=== PATIENT | male | born 1990 | race African-American/Black ===

== ENCOUNTER 2019-04-16 18:53 | Emergency (ER) | payer OTHER, SELFPAY ==
[2019-04-16 19:00] VITALS: BP 172/80; PULSE 101; RESP 20; TEMP 38; O2SAT 100
--- NOTE | 2019-04-16 19:09 | ED.URI ---
HPI - URI/Sore Throat General Chief Complaint: Upper Respiratory Infection Stated Complaint: fever/sore throat/cough Source: patient Mode of arrival: ambulatory Limitations: no limitations History of Present Illness HPI Narrative: The patient- who is here with sick family members and nonsmoker/nondrinker- presents to 2d history of scantly productive cough and chills. No fever measured, wheeze earache. Symptoms mild, worse with sleeping/supine, better when upright; family members tested positive for flu B Related Data Home Medications Medication Instructions Recorded Confirmed lisinopril-hydrochlorothiazide 1 tablet PO DAILY 04/16/19 04/16/19 Allergies Allergy/AdvReac Type Severity Reaction Status Date / Time No Known Allergies Allergy Verified 04/16/19 19:03 Review of Systems Review of Systems: Narrative: General/Constitutional: No weight loss,POSS fever Eyes: N0: Redness,discharge Ears/Nose/Throat: No: Epistaxis,ear discharge Respiratory: Denies: Hemoptysis Gastrointestinal: No Vomiting, Bleeding-rectal Skin: No Lumps, eruption Neurologic: No Focal Weakness,Sz Hematologic: Denies: Petechiae/Purpura Psychiatric: No: Suicida ideationl All Other Systems: Reviewed and Negative PMFSH Social History Social History Gender identity (if verbalized by the patient): Male Comments At time of signature, agree with nursing past medical, surgical, social and family history. There is no relevant family history pertinent to the presenting complaint Exam Narrative: Exam Narrative: General Appearance: Well appearing, Well nourished EYE: PERRLA, Conjunctiva clear Ears: Auditory canal normal, TM normal Nose: Rhinorrhea, Mucousal erythema Mouth/Throat: MM moist, Uvula midline, Pharyngeal erythema Neck: Supple, No adenopathy Respiratory: No respiratory distress, Breath sounds equal, Clear to auscultation Cardiovascular: RRR, No JVD Musculoskeletal: Non tender, Normal strength Skin: Warm, Dry Neurological: A&O x3, CN II-XII intact Psychiatric: Normal mood, Normal affect Course Vital Signs Vital signs: Vital Signs Temperature 100.4 F H 04/16/19 19:00 Pulse Rate 101 H 04/16/19 19:00 Respiratory Rate 20 04/16/19 19:00 Blood Pressure 172/80 H 04/16/19 19:00 Pulse Oximetry 100 04/16/19 19:00 Temperature 100.4 F H 04/16/19 19:00 Pulse Rate 101 H 04/16/19 19:00 Respiratory Rate 20 04/16/19 19:00 Blood Pressure 172/80 H 04/16/19 19:00 Pulse Oximetry 100 04/16/19 19:00 MDM - URI/Sore Throat Lab Data Labs: Influenza A Screen Negative Reference Range: Negative Influenza B Screen Positive Reference Range: Negative Strep Screen Presumptive Negative *(Reference Range: Negative)* Discharge Plan Discharge Clinical Impression: Influenza B Patient Disposition: Home, Self-Care Condition: Stable Instructions: Influenza (ED) Prescriptions: New benzonatate [Tessalon Perles] 100 mg capsule 100 mg PO TID Qty: 20 RF: 1 codeine-guaifenesin 10-100 mg/5 mL liquid 7.5 ml PO Q6H PRN (Reason: cough) Qty: 118 RF: 0 oseltamivir [Tamiflu] 75 mg capsule 75 mg PO Q12H 5 Days Qty: 10 RF: 0 No Action lisinopril-hydrochlorothiazide 20-12.5 mg Tablet 1 tablet PO DAILY RF: 0 Interventions: Discharge Disposition Last Done: 04/16/19 19:18 Follow-up/Referrals: UNKNOWN,DOCTOR [Primary Care Provider] - Stand Alone Forms: Work/School Release IP Discharge Date/Time: 04/16/19 19:21
== END 2019-04-16 19:21 | disposition home or self-care (01) ==
PROVIDERS: Emergency Provider Emergency Medicine
DX: J10.1 Influenza due to other identified influenza virus with other respiratory manifestations (principal); I10 Essential (primary) hypertension
CPT/HCPCS: 87081; 87804; 87880; 99203; G0463

== ENCOUNTER 2020-10-24 10:49 | Emergency (ER) | payer OTHER, SELFPAY ==
[2020-10-24 10:59] VITALS: BP 147/86; PULSE 89; RESP 18; TEMP 36.4; O2SAT 99
--- NOTE | 2020-10-24 11:15 | ED.URI ---
HPI - URI/Sore Throat General Chief Complaint: Upper Respiratory Infection Stated Complaint: sinus infection Time Seen by Provider: 10/24/20 11:20 Source: patient and RN notes reviewed Mode of arrival: ambulatory Limitations: no limitations History of Present Illness HPI Narrative: 30-year-old male presents concern for 3 to 4-day history of nasal congestion, postnasal drainage, rhinorrhea, body aches, cough, occasional sore throat. Reports he has been vaccinated for Covid and tested negative Covid yesterday. He denies any known sick contacts, denies shortness of breath, loss of sense of taste or smell, ear pain. MD elicited complaint: nasal congestion Related Data Home Medications Medication Instructions Recorded Confirmed lisinopril-hydrochlorothiazide 1 tablet PO DAILY 04/16/19 04/16/19 Allergies Allergy/AdvReac Type Severity Reaction Status Date / Time No Known Allergies Allergy Verified 10/24/20 11:33 Review of Systems Review of Systems: CONSTITUTIONAL: Denies malaise, chills, sweats, or fever. EYES: Denies visual changes, redness, or discharge. ENT: Reports rhinorrhea, congestion, sore throat. Denies sinus pain, otalgia CARDIOVASCULAR: Denies chest pain, palpitations, or edema. RESPIRATORY: Reports cough. Denies dyspnea. GASTROINTESTINAL: Denies abdominal pain, nausea, vomiting, diarrhea SKIN: Denies rash or itching. MUSCULOSKELETAL: Reports myalgia. NEUROLOGIC: Denies headache. All systems reviewed & are unremarkable except as noted in HPI and below PMFSH Social History Social History Gender identity (if verbalized by the patient): Male Comments At time of signature, agree with nursing past medical, surgical, social and family history. There is no relevant family history pertinent to the presenting complaint Exam Narrative: GENERAL: Well-appearing, well-nourished, and in no acute distress. HEAD: Normocephalic EYES: PERRLA, conjunctivae clear ENT: Nares clear, turbinates erythematous, clear discharge. Mucous membranes moist. TM pearly dominguez with sharp light reflex bilaterally; no tragal tenderness. Oropharynx not erythematous without lesions. Tonsils not enlarged and without exudate, no drooling, no hoarseness, no trismus, uvula midline. NECK: Supple. No lymphadenopathy CHEST: Clear to auscultation, breath sounds equal. No wheezing, rhonchi, rales, or stridor. No respiratory distress, speaks in full sentences. HEART: Regular rate and rhythm. No murmur heard. SKIN: Warm, dry, no rash. NEURO: Alert and oriented x3. PSYCH: Normal mood and affect Course Course Emergency Course: Patient is aware of diagnosis, understands and agrees to treatment plan. Anticipatory guidance given. Patient agrees to follow-up as directed and is aware of reasons to seek care at the emergency department. Portions of this record may have been created with voice recognition software Vital Signs Vital signs: Vital Signs Temperature 97.6 F 10/24/20 10:59 Pulse Rate 89 10/24/20 10:59 Respiratory Rate 18 10/24/20 10:59 Blood Pressure 147/86 H 10/24/20 10:59 Pulse Oximetry 99 10/24/20 10:59 Temperature 97.6 F 10/24/20 10:59 Pulse Rate 89 10/24/20 10:59 Respiratory Rate 18 10/24/20 10:59 Blood Pressure 147/86 H 10/24/20 10:59 Pulse Oximetry 99 10/24/20 10:59 Reviewed. Pt has been instructed to follow up with his primary care provider within the next week regarding his elevated blood pressure today. MDM - URI/Sore Throat MDM Narrative Medical decision making narrative: Differential diagnosis considered: Benson virus, strep pharyngitis, allergic rhinitis, upper respiratory tract infection, sinusitis, rhinosinusitis, nasopharyngitis. viral pharyngitis, otitis media, otitis externa, pneumonia, bronchitis, viral cough syndrome, viral syndrome, and influenza. Exam findings show no acute concerns or changes; patient is non-toxic appearing and is in no distress. Patient is appropriate for outpatient jessica
== END 2020-10-24 11:48 | disposition home or self-care (01) ==
PROVIDERS: Emergency Provider Nurse Practitioner
DX: J06.9 Acute upper respiratory infection, unspecified (principal); I10 Essential (primary) hypertension
CPT/HCPCS: 99213; G0463

== ENCOUNTER 2023-01-05 19:31 | Emergency (ER) | payer OTHER, SELFPAY ==
--- NOTE | ~2023-01-05 | XR_ITS ---
EXAMINATION: XR chest 2V 01/05/2023 20:02 INDICATION: Chest pain PROCEDURE: 2 view chest COMPARISON: No prior studies for comparison. FINDINGS: The lungs are clear. The cardiomediastinal silhouette is within normal limits. There are no pleural effusions. There is no pneumothorax suspected. IMPRESSION: 1: NO ACUTE CARDIOPULMONARY DISEASE. Reviewed, dictated and finalized at location A.
--- NOTE | 2023-01-05 19:33 | ECG_ITS ---
Measurements Intervals [place] Rate: 91 P: 19 AR: 165 QRS: 38 QRSD: 96 T: 31 QT: 347 QTc: 427 Interpretive Statements SINUS RHYTHM NORMAL ECG NO PREVIOUS ECG AVAILABLE FOR COMPARISON Electronically Signed On 01-06-2023 7:48:57 CDT by Rick Zhao D.O.
[2023-01-05 19:46] VITALS: BP 156/92; PULSE 70; RESP 18; TEMP 36.9; O2SAT 98
[2023-01-05 20:00] LABS: Basophils Percent Auto 0.5 % (0.2-1.2); Eosinophils Absolute Auto 0.2 K/mm3 (0-0.3); Eosinophils Percent Auto 2.9 % (0-4.4); Hematocrit 46.8 % (42.0-52.0); Hemoglobin 15.5 g/dL (14.0-18.0); Immature Granulocyte Absolute 0.01 K/mm3 (0.00-0.031); Immature Granulocyte Percent A 0.2 % (0-0.5); Lymphocytes Absolute Auto 1.98 K/mm3 (0.9-3.2); Lymphocytes Percent Auto 30.1 % (18.3-44.2); Mean Corpuscular HGB Conc 33.1 g/dl (32-36); Mean Corpuscular Hemoglobin 29.3 pg (26-34); Mean Corpuscular Volume 88.5 fl (80-100); Mean Platelet Volume 9.3 fl (7.4-10.4); Monocytes Absolute Auto 0.7 K/mm3 (0.1-0.6); Monocytes Percent Auto 10.9 % (2.6-8.5); Neutrophils Absolute Auto 3.7 K/mm3 (1.3-6.7); Neutrophils Percent Auto 55.4 % (45.5-73.1); Platelet Count Result 281 k/mm3 (150-375); Red Blood Count 5.29 M/mm3 (4.6-6.20); Red Cell Distribution Width 11.7 % (11.5-14.5); White Blood Count 6.6 K/mm3 (4.5-10.0)
[2023-01-05 20:11] LABS: Alanine Aminotransferase 61 U/L (6-50); Albumin Level 4.9 g/dL (3.5-5.1); Alkaline Phosphatase 39 U/L (38-126); Anion Gap 9 mmol/L (8-16); Aspartate Amino Transferase 38 U/L (17-59); Bilirubin,Total 0.5 mg/dL (0.2-1.3); Blood Urea Nitrogen 16 mg/dL (9-20); Calcium 9.7 mg/dL (8.4-10.2); Carbon Dioxide 28 mmol/L (22-30); Chloride 102 mmol/L (98-107); Estimated CRCL calculation 124 ml/min; Estimated Glomerular Filt Rate > 60; Glucose 106 mg/dL (65-110); Lipase 193 U/L (23-300); Potassium 3.6 mmol/L (3.4-5.0); Prothrombin Time 13.1 Seconds (11.1-14.7); Sodium 139 mmol/L (137-145)
[2023-01-05 20:12] LABS: Partial Thromboplastin Time 27.2 SECONDS (22.3-36.8)
[2023-01-05 20:22] LABS: Troponin I < 0.012 ng/mL (0.000-0.034)
--- NOTE | 2023-01-05 21:29 | ED.CHESTPAIN ---
HPI - Chest Pain General Chief Complaint: Chest Pain Stated Complaint: chest pain since 1400 Time Seen by Provider: 01/05/23 21:26 History of Present Illness HPI narrative: Patient is a 32-year-old male who presents to the emergency department this afternoon complaining of chest pain. Patient states that the pain started at approximately 2 PM today and initially he rates the pain a 3 or a 4 out of 10 on the pain scale. Patient did take a full dose of oral chewable aspirin prior to arrival. Patient then states that when he got home and told his about the chest pain she wanted him to come to the emergency department for further evaluation. Patient states that at that time he did have some mild back pain, feeling as though the chest pain was radiating through his chest to his back. Patient states that since then the pain has improved and rates it at a 1 out of 10 on the pain scale. Patient admits to a history of high blood pressure, however, he states that his blood pressure has been controlled on his medications. He states that his does regularly check his blood pressure and today while he was at work they did notice that it was elevated which was unusual for him. Patient denies any shortness of breath, nausea, vomiting, abdominal pain, dysuria, hematuria, constipation, diarrhea, melena, hematochezia, fevers or chills. He also denies any headaches, dizziness, lightheadedness, blurry visions, dizziness, focal weakness, numbness and or tingling. There are no other modifying, alleviating, or precipitating factors at this time. Related Data Home Medications Medication Instructions Recorded Confirmed lisinopril 20 1 tablet PO DAILY 04/16/19 04/16/19 mg-hydrochlorothiazide 12.5 mg tablet Allergies Allergy/AdvReac Type Severity Reaction Status Date / Time No Known Allergies Allergy Verified 01/05/23 19:32 Review of Systems Review of Systems: All systems are reviewed and are negative unless stated otherwise in the HPI. [facility] Social History Social History Gender identity (if verbalized by the patient): Male Exam Narrative: General: Alert, awake, afebrile, in no acute distress. HEENT: PERRL, no rhinorrhea, no post nasal drip, oropharynx clear. Neck: Trachea midline, no JVD, no lymphadenopathy. Cardiovascular: Regular rate and rhythm, no murmurs, rubs or gallops, no peripheral edema, equal bilateral radial pulses. Respiratory: Clear to auscultation bilaterally, no tachypnea, no wheezing, no rhonchi, no rubs, no respiratory distress. Abdomen: Soft, nontender, nondistended, no rebound, no guarding, no peritoneal signs. Musculoskeletal: No joint swelling or deformity, normal muscle tone. Skin: No rashes or petechia, no signs of infection. Psychiatric: Alert and oriented, normal behavior and judgment for situation. Neurological: Alert and oriented to person, place, and time. Follows all commands. No focal deficits, speech is clear and fluent. 5 out of 5 motor strength in the bilateral upper and lower extremity, sensation intact in the bilateral upper and lower extremity, cranial nerves II through XII grossly intact. Gait intact and normal. Course Vital Signs Vital signs: Vital Signs Temperature 98.4 F 01/05/23 19:46 Pulse Rate 70 01/05/23 19:46 Respiratory Rate 18 01/05/23 19:46 Blood Pressure 156/92 H 01/05/23 19:46 Pulse Oximetry 98 01/05/23 19:46 Oxygen Delivery Room Air 01/05/23 19:46 Temperature 98.4 F 01/05/23 19:46 Pulse Rate 84 01/05/23 21:36 Respiratory Rate 18 01/05/23 19:46 Blood Pressure 151/83 H 01/05/23 21:36 Pulse Oximetry 97 01/05/23 21:49 Oxygen Delivery Room Air 01/05/23 21:49 MDM - Chest Pain MDM Narrative Medical decision making narrative: The patient was evaluated by myself in the emergency department. History is obtained from patient who is an independent historian and physical
[2023-01-05 21:36] VITALS: BP 151/83; PULSE 84; O2SAT 95
[2023-01-05 21:49] VITALS: O2SAT 97
== END 2023-01-05 22:05 | disposition home or self-care (01) ==
LOC: ANHED 22:05
PROVIDERS: Student in an Organized Health Care Education/Training Program; Emergency Provider Emergency Medicine
DX: R07.89 Other chest pain (principal)
CPT/HCPCS: 36415; 71046; 80053; 83690; 84484; 85025; 85610; 85730; 93005; 99284

== ENCOUNTER 2023-12-30 15:04 | Emergency (ER) | payer OTHER, SELFPAY ==
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
[2023-12-30 15:20] VITALS: BP 161/109; PULSE 70; RESP 17; TEMP 36.9; O2SAT 99
== END 2023-12-30 16:27 | disposition home or self-care (01) ==
PROVIDERS: Emergency Provider Physician Assistant
DX: S13.4XXA Sprain of ligaments of cervical spine, initial encounter (principal); V89.2XXA Person injured in unspecified motor-vehicle accident, traffic, initial encounter
CPT/HCPCS: 99283

== ENCOUNTER 2024-04-16 20:00 | Emergency (ER) | payer OTHER, SELFPAY ==
--- NOTE | ~2024-04-16 | US_ITS ---
EXAMINATION: US venous doppler LE RT DATE: 04/16/2024 20:56 INDICATION: Pain and swelling TECHNIQUE: Grayscale ultrasound images without and with compression and Doppler ultrasound images of the right lower extremity veins were obtained. COMPARISON: None. FINDINGS: The visualized portions of right common femoral vein, profunda (deep) femoral vein, femoral vein, pop liteal vein, peroneal veins, posterior tibial veins, and greater saphenous vein outflow are patent. IMPRESSION: 1. No deep venous thrombosis within the right lower extremity, as detailed above. Reviewed, dictated and finalized at location A. OR CLINICAL DATA ANALYST IMPRESSION: 1. No deep venous thrombosis within the right lower extremity, as detailed abo ve.
[2024-04-16 20:02] VITALS: BP 166/95; PULSE 83; RESP 15; TEMP 36.1; O2SAT 100
--- OUTSIDE RECORDS SUMMARY | 2024-04-16 20:02 | XMS_ITS | Clinical Summary ---
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 Gender Identity Not on file Sexual Orientation Not on file Plan of Treatment Health Maintenance Due Date Last Done Comments Hepatitis C Virus (HCV) Screening 1990 TdaP Immunization 1990 Hepatitis B Immunization (1 of 3 - 19+ 3-dose series) 02/14/2007 Influenza Immunization (#1) 2023 SARS-COV-2 Immunization ( season) 2023 12/30/2020, 06/09/2020, 05/18/2020 Respiratory Syncytial Virus (RSV) Immunization (Adult) (1 - 1-dose 75+ series) 02/14/2063 Meningococcal Immunization (ACWY) Aged Out No longer eligible b ased on patient's age to complete this topic Pneumococcal Immunization Combined Aged Out No longer eligible b ased on patient's age to complete this topic Rotavirus Immunization Aged Out No lo nger eligible based on patient's age to complete this topic
--- OUTSIDE RECORDS SUMMARY | 2024-04-16 20:03 | XMS_ITS | Clinical Summary ---
Author Organization [facility] Address [address] [place] [address] Care Team Providers Care Chemist Instrumentation Name Role Phone Unavailable Primary Care Provider Unavailabl e Source Comments [facility],non-owned Affiliates and Associated Physician Practices is amultiple site organization consisting of ambulatory clinics and hospital sitesin [place], [place], [place] and [place]. This disclosure is being madepursuant to the Care Everywhere program and may not contain all information available regarding this patient. Last updated 17.[facility] Health Encounters Date Type Department Care Team Description 03/13/2024 8:40 AM SWITCH INSPECTOR - 03/13/2024 11:59 PM SWITCH INSPECTOR Hospital Encounter [facility] [address] [place] [address] Channing Chiu, Discharge Disposition: Home or Self Care from Last 3 Months Social History Tobacco Use Types Packs/Day Years Used Date Smoking Tobacco: Never Assessed Sex and Gender Information Value Date Recorded Sex Assigned at Not on file Gender Identity Not on file Sexual Orientation Not on file Plan of Treatment Health Maintenance Due Date Last Done Comments PAP SMEAR 1990 HIV SCREENING 02/14/2003 HEPATITIS C SCREENING 02/10/2006 DTAP/TDAP/TD VACCINES (1 - Tdap) 02/14/2007 HEPATITIS B VACCINE (1 of 3 - 19+ 3-dose series) 02/14/2007 COVID-19 VACCINE (4 - season) 2023 12/30/2020, 06/09/2020, 05/18/2020 DEPRESSION SCREENING 03/06/2024 ZOSTER VACCINE (1 of 2) 02/14/2038 INFLUENZA VACCINE Completed 01/24/2024, , 01/13/2021, Additional history exists HIB VACCINE Aged Out No longer eligi ble based on patient's age to complete this topic HPV VACCINE Aged Out No longer eligi ble based on patient's age to complete this topic MENINGOCOCCAL (Group B) VACCINE Aged Out No longer eligible based on patient's age to complete this topic MENINGOCOCCAL VACCINE Aged Out No nicole hien eligible based on patient's age to complete this topic PNEUMOCOCCAL VACCINE Aged Out No long er eligible based on patient's age to complete this topic Procedures Procedure Name Priority Date/Time Associated Diagnosis Comments XR SHOULDER LEFT 2VW OR MORE Routine 03/13/2024 8:52 AM SWITCH INSPECTOR Arthritis, allergic from Last 3 Months Results * XR Shoulder Left 2Vw or More (03/13/2024 8:52 AM SWITCH INSPECTOR) Anatomical Region Laterality Modality Upper Extremity Digital Radiogra phy 03/13/2024 9:10 AM SWITCH INSPECTOR Impressions 03/13/2024 9:32 AM SWITCH INSPECTOR IMPRESSION: No arthritis. Report dictated by Jeri Healy MD (vice president of communications). I, Josh Díaz MD have personally reviewed and interpreted this examination/study. > Interpreting Provider: Josh Díaz MD on 03/13/2024 9:32 AM Narrative 03/13/2024 9:32 AM SWITCH INSPECTOR PROCEDURE: XR SHOULDER LEFT 2VW OR MORE DATE/TIME OF EXAM: 03/13/2024 8:52 AM CLINICAL INFORMATION: None relevant/not provided if blank. Indication: M13.80: Arthritis, allergic Additional History: COMPARISON: None. FINDINGS: There is no acute fracture or dislocation. There is no acromioclavicular or glenohumeral arthritis. Humeral shaft plate and screws, partly imaged. Procedure Note Josh Díaz MD - 03/13/2024 PROCEDURE: XR SHOULDER LEFT 2VW OR MORE DATE/TIME OF EXAM: 03/13/2024 8:52 AM CLINICAL INFORMATION: None relevant/not provided if blank. Indication: M13.80: Arthritis, allergic Additional History: COMPARISON: None. FINDINGS: There is no acute fracture or dislocation. There is no acromioclavicularor glenohumeral arthritis. Humeral shaft plate and screws, partly imaged. IMPRESSION: No arthritis. Report dictated by Jeri Healy MD (vice president of communications). I, Josh Díaz MD have personally reviewed and interpreted this examination/study. > Interpreting Provider: Josh Díaz MD on 03/13/2024 9:32 AM Channing Chiu DO DIAGNOSTIC I MAGING ORDERABLES from Last 3 Months Narciso Al Personal/Family Self 1990
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
--- OUTSIDE RECORDS SUMMARY | 2024-04-16 20:03 | XMS_ITS | Referral Summary ---
Author Organization [facility] Address [address] [place] [address] Care Team Providers Care Wig Stylist Name Role Phone Unavailable Primary Care Provider Unavailabl e Source Comments [facility],non-owned Affiliates and Associated Physician Practices is amultiple site organization consisting of ambulatory clinics and hospital sitesin [place], [place], [place] and [place]. This disclosure is being madepursuant to the Care Everywhere program and may not contain all information available regarding this patient. Last updated 17.[facility] Encounters Date Type Department Care Team Description 03/13/2024 8:40 AM VISUAL EFFECTS EDITOR - 03/13/2024 11:59 PM VISUAL EFFECTS EDITOR Hospital Encounter [facility] [address] [place] [address] Channing Chiu, Discharge Disposition: Home or Self Care from Last 3 Months Social History Tobacco Use Types Packs/Day Years Used Date Smoking Tobacco: Never Assessed Sex and Gender Information Value Date Recorded Sex Assigned at Not on file Gender Identity Not on file Sexual Orientation Not on file Plan of Treatment Not on file Procedures Procedure Name Priority Date/Time Associated Diagnosis Comments XR SHOULDER LEFT 2VW OR MORE Routine 03/13/2024 8:52 AM VISUAL EFFECTS EDITOR Arthritis, allergic from Last 3 Months Results * XR Shoulder Left 2Vw or More (03/13/2024 8:52 AM VISUAL EFFECTS EDITOR) Anatomical Region Laterality Modality Upper Extremity Digital Radiogra phy 03/13/2024 9:10 AM VISUAL EFFECTS EDITOR Impressions 03/13/2024 9:32 AM VISUAL EFFECTS EDITOR IMPRESSION: No arthritis. Report dictated by Jeri Healy MD (vice president of finance). Josh White MD have personally reviewed and interpreted this examination/study. > Interpreting Provider: Josh Díaz MD on 03/13/2024 9:32 AM Narrative 03/13/2024 9:32 AM VISUAL EFFECTS EDITOR PROCEDURE: XR SHOULDER LEFT 2VW OR MORE [...] by Jeri Healy MD (vice president of finance). Josh White MD have personally reviewed and interpreted this examination/study. > Interpreting Provider: Josh Díaz MD on 03/13/2024 9:32 AM Channing Chiu DO DIAGNOSTIC I MAGING ORDERABLES from Last 3 Months Narciso Al Personal/Family Self 1990
--- OUTSIDE RECORDS SUMMARY | 2024-04-16 20:03 | XMS_ITS | Patient Health Summary ---
Author Organization [email or web address] Address [address] [place] [address] Care Team Providers Care Printer Operator Name Role Phone Unavailable Primary Care Provider Unavailabl e Note from [email or web address],non-owned Affiliates and Associated Physician Practices is amultiple site organization consisting of ambulatory clinics and hospital sitesin [place], [place], [place] and [place]. This disclosure is being madepursuant to the Care Everywhere program and may not contain all information available regarding this patient. Last updated 17.[email or web address] Social History Tobacco Use Types Packs/Day Years Used Date Smoking Tobacco: Never Assessed Sex and Gender Information Value Date Recorded Sex Assigned at Not on file Gender Identity Not on file Sexual Orientation Not on file Procedures * XR SHOULDER LEFT 2VW OR MORE(Performed 03/13/2024) Performed for Arthritis, allergic Results * XR Shoulder Left 2Vw or More (03/13/2024 8:52 AM ROD MILL TENDER) Anatomical Region Laterality Modality Upper Extremity Digital Radiogra phy 03/13/2024 9:10 AM ROD MILL TENDER Impressions 03/13/2024 9:32 AM ROD MILL TENDER IMPRESSION: No arthritis. Report dictated by Jeri Healy MD (psychiatry resident). I, Josh Díaz MD have personally reviewed and interpreted this examination/study. > Interpreting Provider: Josh Díaz MD on 03/13/2024 9:32 AM Narrative 03/13/2024 9:32 AM ROD MILL TENDER PROCEDURE: XR SHOULDER LEFT 2VW OR MORE [...] arthritis. Report dictated by Jeri Healy MD (psychiatry resident). I, Josh Díaz MD have personally reviewed and interpreted this examination/study. > Interpreting Provider: Josh Díaz MD on 03/13/2024 9:32 AM Channing Chiu DO DIAGNOSTIC I MAGING ORDERABLES
--- OUTSIDE RECORDS SUMMARY | 2024-04-16 20:04 | XMS_ITS | Continuity of Care Document ---
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 Work/Duty Lim[place] [id number] proc MIKEY RICE 08/12 Released with Work/Duty Lim[place] [facility] OUT[place] [id number] polytra rickie ANASTACIA PARHAM 08/13 Released with Work/Duty Limitations [place] [place] [id number] proc MAYRA PHELAN 08/14 Released with Work/Duty Lim[place] [facility] [id number] polytra [facility] ARLENE WHIPPLE 08/15 Released w/o Limitations [place] [place] [id number] proc MIKEY RICE 08/16 Released with Work/Duty Lim[place] [facility] [id number] polytra rickie HERMINIO BONILLA 09/02 Released w/o Limitations [place] [place] [facility] [id number] poly trauma DANIELLE, TATY R 09/10 Released w/o Limitations [place] [facility] [place] [id number] proc MALATHI CARNEY 09/11 Released with Work/Duty Lim[place] [facility] [id number] poly trauma PARHAMWARNERG D 09/13 Released with Work/Duty Lim[place] [place] [id number] proc HEAD, LIU 09/18 Released w/o Lim[place] [id number] consult ///[phone] 4/lm SHIRLEY REYNOSO 09/20 [place]ased w[place]o Limitations [place] [facility] [id number] poly trauma DANIELLE, TATY R 09/20 Released w/o Limitations [place] [facility] [place] [id number] proc MIKEY RICE 09/23 Released with Work/Duty Lim[place] [facility] OUTPAT[place] [id number] poly trauma DANIELLE, TATY R 09/24 Released w/o Limitations [place] [facility] [place] [facility] OUTPAT[place] [id number] poly trauma PARHAM, ANASTACIA D 09/26 Released with Work/Duty Lim[place] [facility] [place] [facility] OUTPAT[place] [id number] poly trauma PARHAM, ANASTACIA D 10/01 Released with Work/Duty Lim[place] [facility] [place] [id number] F/U SHIRLEY REYNOSO 10/02 Released w/o Limitations [place] [facility] [id number] PT Re-Eval uation HERMINIO BONILLA 10/04 Released w/o Limitations [place] [facility] [place] [id number] F/U SHIRLEY REYNOSO 10/10 [place]ased w/o Limitations [place] [id number] surg 15aug TONIA ISIDRO 10/14 [place]ased w/o Lim[place] [id number] pre-op/ surg 20 oct/r knee/ch JERRI Jung 10/15 Released with Work/Duty [place] [id number] post op TONIA ISIDRO 10/25 Released with Work/Duty Lim[place] [id number] f/u SHIRLEY REYNOSO 10/28 Released w/o Limitations [place] [facility] OUTPAT[place] [id number] HERMINIO BONILLA 10/28 Released w/o Limitations [place] [facility] [place] TELE CONSULT [id number] CON LEAVE/C ALL@ [phone] TONIA ISIDRO 10/29 [place] [id number] new profile and bp concern s ZACHARY ROCHA 10/30 [place]ased w/o Limitations [place] [id number] f/u SHIRLEY REYNOSO 11/11 Released w/o Limitations [place] [facility] [id number] poly trauma HERMINIO BONILLA 11/12 Released w/o Limitations [place] [facility] [place] [facility] OUTPATIENT [id number] poly trauma DANIELLE, TATY Jimenez 11/14 Released w/o Limitations [place] [facility] [place] [facility] OUTPATIENT [id number] poly trauma DANIELLE, TATY R 11/19 Released w/o Limitations [place] [place] [id number] NEW PATIENT ARASH ROBERTS 11/21 [place]ased w/o Limitations [place] [place] [facility] [id number] f/u SHIRLEY REYNOSO 11/21 [place]ased [place]/o Lim[place] [facility] [id number] poly trauma TATY SANTOS R 11/22 Released w/o Limitations [place] [facility] [place] [facility]PAT[place] [id number] poly trauma DANIELLETATY RAINEY R 11/25 Released w/o Limitations [place] [place] Case Managemen t) OUTPATIENT [id number] weekly visit for ITA PARSONS 12/04 Released with Work/Duty Lim[place] [place] [facility] [id number] poly trauma WINKLER JERRI Lopez 12/04 Released with Work/Duty Lim[place] [facility] [place] [id number] f/u SHIRLEY REYNOSO 12/05 [place]ased w/o [place] [facility] [place] [facility] OUTPATIENT [id number] MEB Phase 2 / DELBERT JASON 12/10 Released with Work/Duty Lim[place] [place] [facility] [place] [facility] [place] [place] [id number] Weekly Encount QUINCY Aragon 12/10 Released with Work/Duty Lim[place] [place] [facility] [id number] poly trauma JERRI WINKLER 12/10 Released w/o Lim[place] [facility] [place] [id number] FLUMIST /AD/[facility] [employer] MOLLY DHAVAL K 12/11 Released w[place]o Lim[place] [id number] TBI EVALUAT ION REF: [facility] AND [facility] JOHNNY AZUL 12/11 [place]ased w/o Limitations [place] [place] [place] [facility] [facility] [id number] poly trauma WINKLERJERRI 12/12 Released w/o Limitations [place] [facility] [place]) [place] [id number] shen s left arm and hand STEPHEN BRYANT 12/13 Released w/o Limitations [place] [id number] CM follow up r/t mTBI appt 8 Oct 08 KATELIN SEPULVEDA 12/18 Released w/o Limitations [place] [place] [place] [facility] [place] [id number] weekly encount QUINCY Aragon 12/18 Released with Work/Duty Limitations [place] [place] [facility] [id number] poly trauma WINKLERJERRI A 12/18 Released w/o Limitations [place] [facility] [place] [place] [id number] f/u SHIRLEY REYNOSO 12/19 Released w/o Limitations [place] [facility] [id number] poly trauma WINKLERJERRI A 12/20 Released with Work/Duty Limitations [place] [place] [facility] OUTPAT[place] [id number] poly trauma WINKLERJERRI A 12/23 Released with Work/Duty Limitations [place] [facility] [place] [id number] F/U APPT JOHNNY AZUL 12/24 Released w/o Limitations [place] [place] [facility] [id number] poly trauma WINKLERJERRI A 12/25 Released with Work/Duty Limitations [place] [place]) [place] [id number] back class FLOYDENMANUEL Neil 12/26 Released w[place]o Limitations [place] [id number] difficu lties in speech RYNE MACHUCA 12/27 Released w/o Limitations [place] [place] TELE CONSULT [id number] CM f/u QUINCY BRODY 12/27 [place] [place] [id number] f/u SHIRLEY REYNOSO 12/30 Released w/o Limitations [place] [facility]PAT[place] [id number] poly trauma JERRI WINKLER 12/30 Released with Work/Duty Limitations [place] [facility] [place] [facility] OUTPATIENT [id number] poly trauma JERRI WINKLER 01/01 Released with Work/Duty Limitations [place] [place] [id number] weekly encount er CASSANDRA MICHELE 01/03 Released with Work/Duty Limitations [place] [place] [place] TELE CONSULT [id number] Weekly encount er CASSANDRA MICHELE 01/10 [place] [place] [facility] [id number] poly trauma HERMINIO BONILLA 01/17 Released w/o Limitations [place] [place] [place]IENT [id number] weekly encount er CASSANDRA MICHELE 01/17 Released w/o Limitations [place] [place] [id number] F/U APPT JOHNNY AZUL 01/23 Released w/o Limitations [place] [place] [place] TELE CONSULT [id number] weekly encount er CASSANDRA MICHELE 01/24 [place] [place] [id number] PROFILE UPDATE- CM ROSA M KIRAN 01/29 Released w/o Limitations [place] [place] [id number] weekly encount er CASSANDRA MICHELE 01/29 Released with Work/Duty Limitations [place] [place] [id number] f/u SHIRLEY REYNOSO 02/03 Released w/o Limitations [place] [place] [place] [id number] Weekly encount er CASSANDRA MICHELE 02/04 Released w/o Limitations [place] [place] OUTPATIENT [id number] f/u for hand ROSA M PATEL 02/04 Released w/o Limitations [place] [facility] [id number] POLY TRAUMA HERMINIO BONILLA 02/04 Released w/o Limitations [place] [facility] [place] [id number] weekly encoute r WILIAM MICHELENEJuni Desouza 02/14 Released with Work/Duty Limitations [place] [place] [id number] F/U SHIRLEY REYNOSO 02/17 Released w/o Limitations [place] [place] [place] [place] TELE CONSULT [id number] Weekly encount er WILIAM MICHELENEN L 02/21 [place] [place] [facility] TELE CONSULT [id number] PT NO SHOW HERMINIO BONILLA 03/05 [place] [facility] [place] [place] [id number] Weekly encount er LENY, CASSANDRA L 03/10 Released with Work/Duty Limitations [place] [place] [facility] [id number] poly trauma. cpt swaffor d's previou s pnt. GREGORIO ELIZALDE 03/12 Released with Work/Duty Limitations [place] [place] [id number] f/u SHIRLEY REYNOSO 03/13 Released w/o Limitations [place] [id number] L LEG TONIA ISIDRO 03/13 Released w/o Limitations [place] [place] [id number] weekly encount er CASSANDRA MICHELE 03/17 Released with Work/Duty Limitations [place] [place] [facility]) [place] [id number] 009/PRE -OP/KDS GASTON VELASCO 03/18 Released with Work/D[place]) [place] [id number] post op left knee surg mar 14 ENMANUEL BARRIENTOS 03/26 Released w/[place]itations [place]) [place] [id number] pop surgery on TONIA ISIDRO 03/28 Released with Work/Duty Limitations [place] TELE CONSULT [id number] weekly encount er CASSANDRA MICHELE 03/28 [place] TELE CONSULT [id number] NO SHOW [id number] HIGH/LO SHIRLEY GILMORE 03/31 [place] TELE CONSULT [id number] Late-en try weekly encount er. CASSANDRA MICHELE 03/31 [place] TELE CONSULT [id number] Weekly encount er CASSANDRA MICHELE 03/31 [place] [id number] Medicat ion Review/ Weekly Encount er CASSANDRA MICHELE 04/04 Released with Work/D[place] [facility] TELE CONSULT [id number] [facility]\J 1st eval report from a special ist has been scanned into ADIN Bain 04/07 [place] Case Managemen t) OUTPATIENT [id number] Weekly encount er CASSANDRA MICHELE 04/10 [place]itations [place]PAT[place] [id number] NARSUM/ as per Ms.Brad chauhan/JHON Hendrix 04/11 [place] [id number] F/U [phone] KETAN REYNOSOWIN 04/14 [place] TELE CONSULT [id number] Weekly encount er LENY, CASSANDRA L 04/18 [place]) [place] [id number] RACHEL BARRIENTOS ENMANUEL D 04/25 [place] TELE CONSULT [id number] Weekly encount er LENY, CASSANDRA L 04/26 [place]) [place] [id number] f/u [phone] SHIRLEY REYNOSO 04/28 [place] [place] [id number] Weekly encount er LENY, CASSANDRA L 04/29 [place]ased [place] Work/D[place] TELE CONSULT [id number] Weekly encount er LENY, CASSANDRA L 05/07 [place] [facility]PATIENT [id number] MEASLES ISSUES PER CM TEE CABRERA 05/08 [place] Limitations [place] [place]IENT [id number] INITIAL VISIT PER CM LENY SINGHVANESA MAST Robert 05/09 [place]itations [place] [id number] F/U [phone] SHIRLEY REYNOSO 05/12 [place] [id number] [facility]/LAT E EFFECTS OF INJURIE S FRACTUR E UPPER EXTREMI TIES/CM LENY NOTIF 05/09 MIGUEL GRAYSON 05/13 [place]IENT [id number] Weekly encount er CASSANDRA MICHELE 05/15 Released [place] Work/Duty [place] TELE CONSULT [id number] Weekly encoutn er CASSANDRA MICHELE 05/20 [place] [id number] f/u SHIRLEY REYNOSO 05/29 [place] [id number] Weekly encount er CASSANDRA MICHELE 05/29 [place]ased [place] Work/D[place] [facility] [place] [facility] [place] TELE CONSULT [id number] MEDICAT ION REQUEST CASSANDRA MICHELE 05/31 [place] [place] [facility] [place] [id number] Weekly encount er- T-CON CASSANDRA MICHELE L 06/04 [place]ased [place] Work/D[place] [id number] Weekly encount er CASSANDRA MICHELE L 06/17 [place]ased [place] Work/D[place] [facility] [place] [facility] [id number] WT[facility]/CM LENY/ TEE BARRERA 06/19 [place] Limitations [place] [id number] f/u SHIRLEY REYNOSO 06/23 [place] [facility] [facility] [place] [id number] REYNA FISCHER 06/24 [place]/o [place]itations [place] [facility] [place] [id number] Weekly encount er CASSANDRA MICHELE L 06/25 [place]ased [place]/D[place] [id number] Weekly encount er CASSANDRA MICHELE L 07/02 [place]ased [place] Work/D[place] TELE CONSULT [id number] Weekly Encount er-Appt Need CASSANDRA MICHELE 07/08 [place] [place]ag[facility]) OUTPATIENT [id number] Weekly encount er CASSANDRA MICHELE L 07/11 [place]ased [place] Work/Duty [place] [place] Case Managemen [facility]) OUTPATIENT [id number] Weekly encount er CASSANDRA MICHELE 07/14 [place]ased [place] Work/Duty [place] [place] [id number] f/u [phone] SHIRLEY REYNOSO 07/14 [place]ag[facility] OUTPATIENT [id number] WEEKLY ENCOUNT ER CASSANDRA MICHELE 07/21 [place]ased [place] Work/Duty [place] [place] [facility] [facility] [facility] [place]IENT [id number] medicat ion needs/c smngr TEE Hood 07/31 [place]/o Limitations [place] Case [facility]ag[facility]) OUTPATIENT [id number] Weekly Encount er CASSANDRA MICHELE 08/04 Released with Work/Duty Lim[place] [place] Case Managemen [facility]) TELE CONSULT [id number] WEEKLY ENCOUNT ER T-CON CASSANDRA MICHELE 08/21 [place] TELE CONSULT [id number] Weekly Encount er CASSANDRA MICHELE 08/28 [place]LE CONS[place] [id number] Weekly Encount er CHELLE WASHINGTON 09/08 [place] TELE CONS[place] [id number] NCM Weekly Encount er CHELLE WASHINGTON 09/12 [place] TELE CONSULT [id number] Weekly Encount er HCELLE WASHINGTON 09/17 [place] TELE CONSULT [id number] Weekly Encount er CHELLE WASHINGTON 09/26 [place] TELE CONSULT [id number] Final NCM Weekly Encount er CHELLE WASHINGTON 09/30 [place] [facility]) OUTPATIENT [id number] BP CHECK DAY #1 PER COL JUAN JOSÉ KAUFMAN W/LUIS CARLOS RDZ 03/03 Released w/o Limitations [facility] [place] [facility] OUTPATIENT [id number] CONTRAC MANDEEP GONZALEZ NE DAY #2 BP CK PER COL LUIS CARLOS EUCEDA 03/04 Released w/o Limitations [facility]( [facility] [place] [facility]) [facility] [place] OUTPATIENT [id number] CONTRAC TOR LISA NE FLIGHT KERRIE PHAM 03/05 Released w/o Limitations [facility]( [facility] [place] [facility]) [facility](He aring Cons [facility]) OUTPATIENT [id number] Civ audio LEYDA DORA 03/05 Released w/o Limitations [facility]( Hearing [facility]) [facility] [place] TELE CONSULT [id number] Notes Entered by: KERRIE PTAIÑO 17 Apr 2014 0502 ------- ------- ------- ------- -- Flight Barbara desouza follow- up KERRIE PATIÑO 04/17 [facility]( [facility] [place] [facility]) [facility] [place] TELE CONSULT [id number] Notes Entered by: KERRIE PTAIÑO 29 Apr 2014 0649 ------- ------- ------- ------- -- Change in [place] KERRIE PATIÑO 04/29 [facility]( [facility] [place] [facility]) [facility](TB I Cl [facility]) OUTPATIENT [id number] neuro exam for aeromed ical OMID Xiao 05/19 Released w/o Limitations [facility]( TBI Cl [facility]) [facility]) OUTPATIENT [id number] [facility] 05/19 Released w/o Limitations [facility]( TBI Cl [facility]) [facility]) OUTPATIENT [id number] [facility] [place] 05/19 Released w/o Limitations [facility]( TBI Cl [facility]) [facility](TB I Cl [facility]) OUTPATIENT [id number] [facility] 05/20 Released w/o Limitations [facility]( TBI Cl [facility]) [facility](TB I Cl [facility]) TELE CONSULT [id number] Notes Entered by: NU SEWELL 01 Jul 2014 1723 ------- ------- ------- ------- -- Phone call for neurops ycholog ical testing [facility] NU [facility] 07/01 [facility]( TBI Cl NICo[facility] BE) [facility](Op tometry Cl FB) OUTPATIENT [id number] FLIGHT OVI GOLDSMITH BUFFYRA Conklin 01/23 Released w/o Limitations [facility]( Optomet ry Cl [facility]) [facility](He ar Conserv FB) OUTPATIENT [id number] TRISHA SERNA 01/23 Released w/o Limitations [facility]( Hear Conserv [facility]) [facility](Fl ight Med FB) OUTPATIENT [id number] 1 CLASS IV LONG ATC CIV ALEX RAMOS 01/23 Released w/o Limitations [facility]( Flight Med FB) [facility](Fl ight Med [facility]) OUTPATIENT [id number] part 2 Flight ALEX RAMOS 01/27 Released w/o Limitations [facility]( Flight Med [facility]) [facility](Ph ys Med & Rehab Cl [facility]) TELE CONSULT [id number] Notes Entered by: JAYCOB ROY 18 Feb 2015 1337 ------- ------- ------- ------- -- PT would like to speak to provide r about flight ELVIS Zapata 02/18 [facility]( Phys Med & Rehab Cl [facility]) [facility] [place]) OUTPATIENT [id number] Flight BONG Ryan 02/10 Released w/o Limitations [facility]( [facility] [place] [facility]) [facility] [place] OUTPATIENT [id number] ATC FLIGHT KERRIE PHAM 02/21 Released w/o Limitations [facility]( [facility] [place] [facility]) [facility](He aring Cons AB) OUTPATIENT [id number] [facility] Er audio DORA CRABTREE 02/21 Released w/o Limitations [facility]( Hearing Cons AB) [facility] [place] TELE CONSULT [id number] Notes Entered by: KERRIE PATIÑO 23 Feb 2016 0908 ------- ------- ------- ------- -- Report labs KERRIE PATIÑO 02/22 [facility]( [facility] [place] [facility]) [facility] [place] OUTPATIENT [id number] Notes Entered by: KERRIE PATIÑO 27 Apr 2016 1442 ------- ------- ------- ------- -- New [place] KERRIE PATIÑO 04/27 Released w/o Limitations [facility]( [facility] [place] [facility]) [facility] [place] OUTPATIENT [id number] RTW CLEARAN KERRIE CHENEY 08/15 Released w/o Limitations [facility]( [facility] [place] [facility]) [facility] [place] OUTPATIENT [id number] FLIGHT KERRIE PHAM 02/21 Released w/o Limitations [facility]( [facility] [place] [facility]) [facility](He aring Cons [facility]) OUTPATIENT [id number] [facility] AUDIO SCOUT MARINELLI 02/21 Released w/o Limitations [facility]( Hearing Cons AB) [facility] [place] OUTPATIENT [id number] ECG re-do KERRIE PATIÑO 03/07 Released w/o Limitations [facility]( [facility] [place] [facility]) [facility] Outpatient Encounter [id number] 03/10 [facility] Outpatient Encounter [id number] JOE MCQUEEN 03/10 [facility] Outpatient Encounter [id number] 05/10 [facility] FEE [id number] Diagnos is: ICD-10- CM I10 Essenti al (primar y) hyperte nsaylin JODI LOCK IS J 05/14 [facility] OFFICE O/P EST LOW 20 MIN [id number] Diagnos is: ICD-10- CM Z00.01 Encount er for general adult medical exam w abnorma l finding s JODI LOCK IS J 05/14 [facility] Outpatient Encounter [id number] 06/20 [facility] Outpatient Encounter [id number] 07/04 [facility] Outpatient Encounter [id number] 02/03 [facility] Outpatient Encounter [id number] SHABNAM CHRISTENSEN 03/18 [facility] SYNCH AUDIO-VIDE O EST MOD 30 [id number] Diagnos is: ICD-10- CM I10 Essenti al (primar y) hyperte nsion DICK,GWEN OD K 03/20 [facility] SYNCH AUDIO-VIDE O EST MOD 30 [id number] Diagnos is: ICD-10- CM I10 Essenti al (primar y) hyperte nsion DICK,GWEN OD K 03/20 [facility] Outpatient Encounter [id number] 03/21 [facility] Outpatient Encounter [id number] 04/15 [facility] Procedures Combined list of: 1) Procedures from Department of [facility] facilities going back up to thelast 18 months, not all [place] non-surgical procedures are included; 2) All procedures from the Department of Defense facilities. Procedure Procedure Type Code Date Perfomer Comments [facility] e OPEN REDUCTION OF FRACTURE OF HUMERUS WITH INTERNAL FIXATION 2006 [facility] OPEN REDUCTION OF FRACTURE OF RADIUS AND ULNA WITH INTERNAL FIXATION 2006 [facility] OCCUPATIONAL THERAPY 2006 [facility] OPEN REDUCTION OF FRACTURE OF TIBIA AND FIBULA WITH INTERNAL FIXATION 2006 [facility] COMBINED PHYSICAL THERAPY WITHOUT MENTION OF THE COMPONENTS 2006 [facility] OPEN REDUCTION OF FRACTURE OF FEMUR WITH INTERNAL FIXATION 2006 [facility] HEPATITIS A VACCINE (HEPA), ADULT DOSAGE, FOR INTRAMUSCULAR USE 2005 [facility] CASE MANAGEMENT, EACH 15 MINUTES 2008 [facility] CASE MANAGEMENT, EACH 15 MINUTES 2008 [facility] INDIVIDUAL PSYCHOTHERAPY, INSIGHT ORIENTED, BEHAVIOR MODIFYING AND/OR SUPPORTIVE, IN AN OFFICE OR OUTPATIENT FACILITY, APPROXIMATELY 20 TO 30 MINUTES [id number] WITH THE PATIENT 2008 [facility] CHIROPRACTIC MANIPULATIVE TREATMENT (CMT); SPINAL, 1-2 REGIONS 2008 [facility] SCREENING TEST OF VISUAL ACUITY, QUANTITATIVE, BILATERAL 2008 [facility] CHIROPRACTIC MANIPULATIVE TREATMENT (CMT); SPINAL, 3-4 REGIONS 2008 [facility] CHIROPRACTIC MANIPULATIVE TREATMENT (CMT); SPINAL, 1-2 REGIONS 2008 [facility] CHIROPRACTIC MANIPULATIVE TREATMENT (CMT); SPINAL, 3-4 REGIONS 2008 [facility] EDUCATION &TRAINING, PATIENT SELF-MGT QUALIFIED, NONPHYSICIAN HEALTH RESEARCH ASSISTANT USING STDIZED CURRICULUM, [id number] W THE PATIENT (COULD INCL CAREGIVER/FAMILY) EA 30 MIN; INDIVIDUAL PATIENT 2008 [facility] CHIROPRACTIC MANIPULATIVE TREATMENT (CMT); SPINAL, 3-4 REGIONS 2008 [facility]D SUPP &MATERIAL (EXCEPT SPECTACLE),PROVID,THE PHYS/OTH QUALIFIED HEALTH RESEARCH ASSISTANT OVER &ABOVE THOSE USUALLY INCLD W THE OFFICE VISIT/OTH SER RENDERED (LIST DRUG,TRAYS,SUPP,OR MATERIAL PROVID) 2008 [facility] CHIROPRACTIC MANIPULATIVE TREATMENT (CMT); SPINAL, 3-4 REGIONS 2008 [facility] POSTOPERATIVE FOLLOW-UP VISIT, NORMALLY INCLUDED IN THE SURGICAL PACKAGE, INDICATE THAT EVALUATION & MANAGEMENT SERVICE WAS PERFORMED DURING A POSTOPERATIVE PERIOD REASON RELATED ORIGINAL PROCEDURE 2008 [facility] SUPP &MATERIAL (EXCEPT SPECTACLE),PROVID,THE PHYS/OTH QUALIFIED HEALTH RESEARCH ASSISTANT OVER &ABOVE THOSE USUALLY INCLD W THE OFFICE VISIT/OTH SER RENDERED (LIST DRUG,TRAYS,SUPP,OR MATERIAL PROVID) 2008 [facility] UNLISTED SPECIAL SERVICE, PROCEDURE OR REPORT 2008 [facility] EDUCATIONAL SUPPLIES, SUCH BOOKS, TAPES, AND PAMPHLETS, FOR THE PATIENT'S EDUCATION AT COST TO PHYSICIAN OR OTHER QUALIFIED HEALTH RESEARCH ASSISTANT 2008 [facility] CHIROPRACTIC MANIPULATIVE TREATMENT (CMT); SPINAL, 3-4 REGIONS 2008 [facility] PHYSICAL THERAPY RE-EVALUATION 2008 [facility] CHIROPRACTIC MANIPULATIVE TREATMENT (CMT); SPINAL, 3-4 REGIONS 2007 [facility] COORDINATED CARE FEE, MAINTENANCE RATE 2007 [facility] THERAPEUTIC PROCEDURE, 1 OR MORE AREAS, EACH 15 MINUTES; THERAPEUTIC EXERCISES TO DEVELOP STRENGTH AND ENDURANCE, RANGE OF MOTION AND FLEXIBILITY 2007 [facility] CHIROPRACTIC MANIPULATIVE TREATMENT (CMT); SPINAL, 3-4 REGIONS 2007 [facility] EDUCATION &TRAINING, PATIENT SELF-MGT QUALIFIED, NONPHYSICIAN HEALTH RESEARCH ASSISTANT USING STDIZED CURRICULUM, [id number] W THE PATIENT (COULD INCL CAREGIVER/FAMILY) EA 30 MIN; INDIVIDUAL PATIENT 2007 [facility] COORDINATED CARE FEE, MAINTENANCE RATE 2007 DoD THERAPEUTIC PROCEDURE, 1 OR MORE AREAS, EACH 15 MINUTES; THERAPEUTIC EXERCISES TO DEVELOP STRENGTH AND ENDURANCE, RANGE OF MOTION AND FLEXIBILITY 2007 [facility] THERAPEUTIC PROCEDURE, 1 OR MORE AREAS, EACH 15 MINUTES; THERAPEUTIC EXERCISES TO DEVELOP STRENGTH AND ENDURANCE, RANGE OF MOTION AND FLEXIBILITY 2007 [facility] CHIROPRACTIC MANIPULATIVE TREATMENT (CMT); SPINAL, 3-4 REGIONS 2007 [facility] EVALUATION OF SPEECH, LANGUAGE, VOICE, COMMUNICATION, AND/OR AUDITORY PROCESSING 2007 [facility] EDUCATION &TRAINING, PATIENT SELF-MGT QUALIFIED, NONPHYSICIAN HEALTH RESEARCH ASSISTANT USING STANDARDIZED CURRICULUM, [id number] W THE PATIENT (COULD INCL CAREGIVER/FAMILY) EA 30 MIN; 5-8 PATIENTS 2007 [facility] THERAPEUTIC PROCEDURE, 1 OR MORE AREAS, EACH 15 MINUTES; THERAPEUTIC EXERCISES TO DEVELOP STRENGTH AND ENDURANCE, RANGE OF MOTION AND FLEXIBILITY 2007 [facility] THERAPEUTIC PROCEDURE, 1 OR MORE AREAS, EACH 15 MINUTES; THERAPEUTIC EXERCISES TO DEVELOP STRENGTH AND ENDURANCE, RANGE OF MOTION AND FLEXIBILITY 2007 [facility] THERAPEUTIC PROCEDURE, 1 OR MORE AREAS, EACH 15 MINUTES; THERAPEUTIC EXERCISES TO DEVELOP STRENGTH AND ENDURANCE, RANGE OF MOTION AND FLEXIBILITY 2007 [facility] INDIVIDUAL PSYCHOTHERAPY, INSIGHT ORIENTED, BEHAVIOR MODIFYING AND/OR SUPPORTIVE, IN AN OFFICE OR OUTPATIENT FACILITY, APPROXIMATELY 20 TO 30 MINUTES [id number] WITH THE PATIENT 2007 [facility] CHIROPRACTIC MANIPULATIVE TREATMENT (CMT); SPINAL, 1-2 REGIONS 2007 [facility] THERAPEUTIC PROCEDURE, 1 OR MORE AREAS, EACH 15 MINUTES; THERAPEUTIC EXERCISES TO DEVELOP STRENGTH AND ENDURANCE, RANGE OF MOTION AND FLEXIBILITY 2007 [facility] MUSCLE TESTING, MANUAL (SEPARATE PROCEDURE); HAND (WITH OR WITHOUT COMPARISON WITH NORMAL SIDE) 2007 [facility] THERAPEUTIC PROCEDURE, 1 OR MORE AREAS, EACH 15 MINUTES; THERAPEUTIC EXERCISES TO DEVELOP STRENGTH AND ENDURANCE, RANGE OF MOTION AND FLEXIBILITY 2007 [facility] HEALTH&BEHAV ASSESSMENT (EG, HEALTH-FOC CLINICAL INTERVIEW, BEHAVIORAL OBSERVATIONS, PSYCHOPHYSICOLOGICAL MONITOR, HEALTH-ORIENT QUESTIONNAIRES), EA 15 MIN [id number] W THE PATIENT; INIT ASSESSMENT 2007 [facility] INFLUENZA VIRUS VACCINE, TRIVALENT, LIVE (LAIV3), FOR INTRANASAL USE 2007 [facility] THERAPEUTIC PROCEDURE, 1 OR MORE AREAS, EACH 15 MINUTES; THERAPEUTIC EXERCISES TO DEVELOP STRENGTH AND ENDURANCE, RANGE OF MOTION AND FLEXIBILITY 2007 [facility] CASE MANAGEMENT, EACH 15 MINUTES 2007 [facility] CHIROPRACTIC MANIPULATIVE TREATMENT (CMT); SPINAL, 1-2 REGIONS 2007 [facility] THERAPEUTIC PROCEDURE(S), GROUP (2 OR MORE INDIVIDUALS) 2007 [facility] CASE MANAGEMENT, EACH 15 MINUTES 2007 [facility] PSYCHIATRIC DIAGNOSTIC INTERVIEW EXAMINATION 2007 [facility] AUDIOMETRIC TESTING OF GROUPS 2007 [facility] THERAPEUTIC PROCEDURE, 1 OR MORE AREAS, EACH 15 MINUTES; THERAPEUTIC EXERCISES TO DEVELOP STRENGTH AND ENDURANCE, RANGE OF MOTION AND FLEXIBILITY 2007 [facility] THERAPEUTIC PROCEDURE, 1 OR MORE AREAS, EACH 15 MINUTES; THERAPEUTIC EXERCISES TO DEVELOP STRENGTH AND ENDURANCE, RANGE OF MOTION AND FLEXIBILITY 2007 [facility] CHIROPRACTIC MANIPULATIVE TREATMENT (CMT); SPINAL, 3-4 REGIONS 2007 [facility] THERAPEUTIC PROCEDURE, 1 OR MORE AREAS, EACH 15 MINUTES; THERAPEUTIC EXERCISES TO DEVELOP STRENGTH AND ENDURANCE, RANGE OF MOTION AND FLEXIBILITY 2007 [facility] THERAPEUTIC PROCEDURE(S), GROUP (2 OR MORE INDIVIDUALS) 2007 [facility] PHYSICAL THERAPY RE-EVALUATION 2007 [facility] CHIROPRACTIC MANIPULATIVE TREATMENT (CMT); SPINAL, 1-2 REGIONS 2007 [facility] THERAPEUTIC PROCEDURE, 1 OR MORE AREAS, EACH 15 MINUTES; THERAPEUTIC EXERCISES TO DEVELOP STRENGTH AND ENDURANCE, RANGE OF MOTION AND FLEXIBILITY 2007 [facility] CHIROPRACTIC MANIPULATIVE TREATMENT (CMT); SPINAL, 1-2 REGIONS 2007 [facility] POSTOPERATIVE FOLLOW-UP VISIT, NORMALLY INCLUDED IN THE SURGICAL PACKAGE, INDICATE THAT EVALUATION & MANAGEMENT SERVICE WAS PERFORMED DURING A POSTOPERATIVE PERIOD REASON RELATED ORIGINAL PROCEDURE 2007 [facility] UNLISTED SPECIAL SERVICE, PROCEDURE OR REPORT 2007 [facility] EDUCATION &TRAINING, PATIENT SELF-MGT QUALIFIED, NONPHYSICIAN HEALTH RESEARCH ASSISTANT USING STDIZED CURRICULUM, [id number] W THE PATIENT (COULD INCL CAREGIVER/FAMILY) EA 30 MIN; INDIVIDUAL PATIENT 2007 [facility] CHIROPRACTIC MANIPULATIVE TREATMENT (CMT); SPINAL, 1-2 REGIONS 2007 [facility] EDUCATION &TRAINING, PATIENT SELF-MGT QUALIFIED, NONPHYSICIAN HEALTH RESEARCH ASSISTANT USING STDIZED CURRICULUM, [id number] W THE PATIENT (COULD INCL CAREGIVER/FAMILY) EA 30 MIN; INDIVIDUAL PATIENT 2007 [facility] CHIROPRACTIC MANIPULATIVE TREATMENT (CMT); SPINAL, 1-2 REGIONS 2007 [facility] THERAPEUTIC PROCEDURE(S), GROUP (2 OR MORE INDIVIDUALS) 2007 [facility] THERAPEUTIC PROCEDURE(S), GROUP (2 OR MORE INDIVIDUALS) 2007 [facility] THERAPEUTIC PROCEDURE, 1 OR MORE AREAS, EACH 15 MINUTES; THERAPEUTIC EXERCISES TO DEVELOP STRENGTH AND ENDURANCE, RANGE OF MOTION AND FLEXIBILITY 2007 [facility] APPLICATION OF A MODALITY TO 1 OR MORE AREAS; HOT OR COLD PACKS 2007 DoD THERAPEUTIC PROCEDURE, 1 OR MORE AREAS, EACH 15 MINUTES; THERAPEUTIC EXERCISES TO DEVELOP STRENGTH AND ENDURANCE, RANGE OF MOTION AND FLEXIBILITY 2007 [facility] CHIROPRACTIC MANIPULATIVE TREATMENT (CMT); SPINAL, 1-2 REGIONS 2007 DoD APPLICATION OF A MODALITY TO 1 OR MORE AREAS; HOT OR COLD PACKS 2007 DoD THERAPEUTIC PROCEDURE(S), GROUP (2 OR MORE INDIVIDUALS) 2007 DoD APPLICATION OF A MODALITY TO 1 OR MORE AREAS; HOT OR COLD PACKS 2007 DoD THERAPEUTIC PROCEDURE, 1 OR MORE AREAS, EACH 15 MINUTES; THERAPEUTIC EXERCISES TO DEVELOP STRENGTH AND ENDURANCE, RANGE OF MOTION AND FLEXIBILITY 2007 [facility] EDUCATION &TRAINING, PATIENT SELF-MGT QUALIFIED, NONPHYSICIAN HEALTH RESEARCH ASSISTANT USING STDIZED CURRICULUM, [id number] W THE PATIENT (COULD INCL CAREGIVER/FAMILY) EA 30 MIN; INDIVIDUAL PATIENT 2007 DoD APPLICATION OF A MODALITY TO 1 OR MORE AREAS; HOT OR COLD PACKS 2007 DoD THERAPEUTIC PROCEDURE, 1 OR MORE AREAS, EACH 15 MINUTES; THERAPEUTIC EXERCISES TO DEVELOP STRENGTH AND ENDURANCE, RANGE OF MOTION AND FLEXIBILITY 2007 DoD THERAPEUTIC PROCEDURE, 1 OR MORE AREAS, EACH 15 MINUTES; THERAPEUTIC EXERCISES TO DEVELOP STRENGTH AND ENDURANCE, RANGE OF MOTION AND FLEXIBILITY 2007 DoD THERAPEUTIC PROCEDURE(S), GROUP (2 OR MORE INDIVIDUALS) 2007 DoD THERAPEUTIC PROCEDURE, 1 OR MORE AREAS, EACH 15 MINUTES; THERAPEUTIC EXERCISES TO DEVELOP STRENGTH AND ENDURANCE, RANGE OF MOTION AND FLEXIBILITY 2007 DoD THERAPEUTIC PROCEDURE, 1 OR MORE AREAS, EACH 15 MINUTES; THERAPEUTIC EXERCISES TO DEVELOP STRENGTH AND ENDURANCE, RANGE OF MOTION AND FLEXIBILITY 2007 DoD THERAPEUTIC PROCEDURE(S), GROUP (2 OR MORE INDIVIDUALS) 2007 DoD THERAPEUTIC PROCEDURE, 1 OR MORE AREAS, EACH 15 MINUTES; THERAPEUTIC EXERCISES TO DEVELOP STRENGTH AND ENDURANCE, RANGE OF MOTION AND FLEXIBILITY 2007 DoD THERAPEUTIC PROCEDURE, 1 OR MORE AREAS, EACH 15 MINUTES; THERAPEUTIC EXERCISES TO DEVELOP STRENGTH AND ENDURANCE, RANGE OF MOTION AND FLEXIBILITY 2007 DoD THERAPEUTIC PROCEDURE(S), GROUP (2 OR MORE INDIVIDUALS) 2007 DoD EDUCATION &TRAINING, PATIENT SELF-MGT QUALIFIED, NONPHYSICIAN HEALTH RESEARCH ASSISTANT USING STDIZED CURRICULUM, [id number] W THE PATIENT (COULD INCL CAREGIVER/FAMILY) EA 30 MIN; INDIVIDUAL PATIENT 2007 DoD THERAPEUTIC PROCEDURE, 1 OR MORE AREAS, EACH 15 MINUTES; MASSAGE, INCLUDING EFFLEURAGE, PETRISSAGE AND/OR TAPOTEMENT (STROKING, COMPRESSION, PERCUSSION) 2007 DoD THERAPEUTIC PROCEDURE, 1 OR MORE AREAS, EACH 15 MINUTES; THERAPEUTIC EXERCISES TO DEVELOP STRENGTH AND ENDURANCE, RANGE OF MOTION AND FLEXIBILITY 2007 DoD APPLICATION OF A MODALITY TO 1 OR MORE AREAS; HOT OR COLD PACKS 2007 DoD THERAPEUTIC PROCEDURE, 1 OR MORE AREAS, EACH 15 MINUTES; MASSAGE, INCLUDING EFFLEURAGE, PETRISSAGE AND/OR TAPOTEMENT (STROKING, COMPRESSION, PERCUSSION) 2007 DoD THERAPEUTIC PROCEDURE, 1 OR MORE AREAS, EACH 15 MINUTES; THERAPEUTIC EXERCISES TO DEVELOP STRENGTH AND ENDURANCE, RANGE OF MOTION AND FLEXIBILITY 2007 DoD THERAPEUTIC PROCEDURE, 1 OR MORE AREAS, EACH 15 MINUTES; THERAPEUTIC EXERCISES TO DEVELOP STRENGTH AND ENDURANCE, RANGE OF MOTION AND FLEXIBILITY 2007 DoD THERAPEUTIC PROCEDURE, 1 OR MORE AREAS, EACH 15 MINUTES; THERAPEUTIC EXERCISES TO DEVELOP STRENGTH AND ENDURANCE, RANGE OF MOTION AND FLEXIBILITY 2007 DoD APPLICATION OF A MODALITY TO 1 OR MORE AREAS; HOT OR COLD PACKS 2007 DoD EDUCATION &TRAINING, PATIENT SELF-MGT QUALIFIED, NONPHYSICIAN HEALTH RESEARCH ASSISTANT USING STDIZED CURRICULUM, [id number] W THE PATIENT (COULD INCL CAREGIVER/FAMILY) EA 30 MIN; INDIVIDUAL PATIENT 2007 DoD THERAPEUTIC PROCEDURE, 1 OR MORE AREAS, EACH 15 MINUTES; THERAPEUTIC EXERCISES TO DEVELOP STRENGTH AND ENDURANCE, RANGE OF MOTION AND FLEXIBILITY 2007 DoD WORK HARDENING/CONDITIONING ; INITIAL 2 HOURS 2007 DoD THERAPEUTIC PROCEDURE, 1 OR MORE AREAS, EACH 15 MINUTES; THERAPEUTIC EXERCISES TO DEVELOP STRENGTH AND ENDURANCE, RANGE OF MOTION AND FLEXIBILITY 2007 DoD THERAPEUTIC PROCEDURE, 1 OR MORE AREAS, EACH 15 MINUTES; THERAPEUTIC EXERCISES TO DEVELOP STRENGTH AND ENDURANCE, RANGE OF MOTION AND FLEXIBILITY 2007 DoD EDUCATION &TRAINING, PATIENT SELF-MGT QUALIFIED, NONPHYSICIAN HEALTH RESEARCH ASSISTANT USING STANDARDIZED CURRICULUM, [id number] W THE PATIENT (COULD INCL CAREGIVER/FAMILY) EA 30 MIN; 5-8 PATIENTS 2007 DoD THERAPEUTIC PROCEDURE, 1 OR MORE AREAS, EACH 15 MINUTES; THERAPEUTIC EXERCISES TO DEVELOP STRENGTH AND ENDURANCE, RANGE OF MOTION AND FLEXIBILITY 2007 DoD THERAPEUTIC PROCEDURE(S), GROUP (2 OR MORE INDIVIDUALS) 2007 DoD OCCUPATIONAL THERAPY RE-EVALUATION 2007 DoD EDUCATION &TRAINING, PATIENT SELF-MGT QUALIFIED, NONPHYSICIAN HEALTH RESEARCH ASSISTANT USING STANDARDIZED CURRICULUM, [id number] W THE PATIENT (COULD INCL CAREGIVER/FAMILY) EA 30 MIN; 2-4 PATIENTS 2007 DoD THERAPEUTIC PROCEDURE, 1 OR MORE AREAS, EACH 15 MINUTES; THERAPEUTIC EXERCISES TO DEVELOP STRENGTH AND ENDURANCE, RANGE OF MOTION AND FLEXIBILITY 2007 DoD EDUCATION &TRAINING, PATIENT SELF-MGT QUALIFIED, NONPHYSICIAN HEALTH RESEARCH ASSISTANT USING STANDARDIZED CURRICULUM, [id number] W THE PATIENT (COULD INCL CAREGIVER/FAMILY) EA 30 MIN; 5-8 PATIENTS 2007 DoD EDUCATION &TRAINING, PATIENT SELF-MGT QUALIFIED, NONPHYSICIAN HEALTH RESEARCH ASSISTANT USING STDIZED CURRICULUM, [id number] W THE PATIENT (COULD INCL CAREGIVER/FAMILY) EA 30 MIN; INDIVIDUAL PATIENT 2007 DoD APPLICATION OF A MODALITY TO 1 OR MORE AREAS; ELECTRICAL STIMULATION (MANUAL), EACH 15 MINUTES 2007 DoD APPLICATION OF A MODALITY TO 1 OR MORE AREAS; HOT OR COLD PACKS 2007 DoD APPLICATION OF A MODALITY TO 1 OR MORE AREAS; ELECTRICAL STIMULATION (MANUAL), EACH 15 MINUTES 2007 DoD APPLICATION OF A MODALITY TO 1 OR MORE AREAS; ELECTRICAL STIMULATION (MANUAL), EACH 15 MINUTES 2007 DoD THERAPEUTIC PROCEDURE, 1 OR MORE AREAS, EACH 15 MINUTES; THERAPEUTIC EXERCISES TO DEVELOP STRENGTH AND ENDURANCE, RANGE OF MOTION AND FLEXIBILITY 2007 DoD APPLICATION OF A MODALITY TO 1 OR MORE AREAS; ELECTRICAL STIMULATION (MANUAL), EACH 15 MINUTES 2007 DoD THERAPEUTIC PROCEDURE, 1 OR MORE AREAS, EACH 15 MINUTES; THERAPEUTIC EXERCISES TO DEVELOP STRENGTH AND ENDURANCE, RANGE OF MOTION AND FLEXIBILITY 2007 DoD THERAPEUTIC PROCEDURE, 1 OR MORE AREAS, EACH 15 MINUTES; THERAPEUTIC EXERCISES TO DEVELOP STRENGTH AND ENDURANCE, RANGE OF MOTION AND FLEXIBILITY 2007 DoD THERAPEUTIC PROCEDURE, 1 OR MORE AREAS, EACH 15 MINUTES; THERAPEUTIC EXERCISES TO DEVELOP STRENGTH AND ENDURANCE, RANGE OF MOTION AND FLEXIBILITY 2007 DoD APPLICATION OF A MODALITY TO 1 OR MORE AREAS; HOT OR COLD PACKS 2007 DoD THERAPEUTIC PROCEDURE, 1 OR MORE AREAS, EACH 15 MINUTES; THERAPEUTIC EXERCISES TO DEVELOP STRENGTH AND ENDURANCE, RANGE OF MOTION AND FLEXIBILITY 2007 DoD THERAPEUTIC PROCEDURE, 1 OR MORE AREAS, EACH 15 MINUTES; THERAPEUTIC EXERCISES TO DEVELOP STRENGTH AND ENDURANCE, RANGE OF MOTION AND FLEXIBILITY 2007 DoD THERAPEUTIC PROCEDURE, 1 OR MORE AREAS, EACH 15 MINUTES; THERAPEUTIC EXERCISES TO DEVELOP STRENGTH AND ENDURANCE, RANGE OF MOTION AND FLEXIBILITY 2007 DoD APPLICATION OF A MODALITY TO 1 OR MORE AREAS; HOT OR COLD PACKS 2007 DoD APPLICATION OF A MODALITY TO 1 OR MORE AREAS; HOT OR COLD PACKS 2007 DoD THERAPEUTIC PROCEDURE, 1 OR MORE AREAS, EACH 15 MINUTES; THERAPEUTIC EXERCISES TO DEVELOP STRENGTH AND ENDURANCE, RANGE OF MOTION AND FLEXIBILITY 2007 DoD POSTOPERATIVE FOLLOW-UP VISIT, NORMALLY INCLUDED IN THE SURGICAL PACKAGE, INDICATE THAT EVALUATION & MANAGEMENT SERVICE WAS PERFORMED DURING A POSTOPERATIVE PERIOD REASON RELATED ORIGINAL PROCEDURE 2007 DoD THERAPEUTIC PROCEDURE, 1 OR MORE AREAS, EACH 15 MINUTES; THERAPEUTIC EXERCISES TO DEVELOP STRENGTH AND ENDURANCE, RANGE OF MOTION AND FLEXIBILITY 2007 DoD THERAPEUTIC PROCEDURE, 1 OR MORE AREAS, EACH 15 MINUTES; THERAPEUTIC EXERCISES TO DEVELOP STRENGTH AND ENDURANCE, RANGE OF MOTION AND FLEXIBILITY 2007 DoD POSTOPERATIVE FOLLOW-UP VISIT, NORMALLY INCLUDED IN THE SURGICAL PACKAGE, INDICATE THAT EVALUATION & MANAGEMENT SERVICE WAS PERFORMED DURING A POSTOPERATIVE PERIOD REASON RELATED ORIGINAL PROCEDURE 2007 DoD APPLICATION OF A MODALITY TO 1 OR MORE AREAS; HOT OR COLD PACKS 2007 DoD THERAPEUTIC PROCEDURE, 1 OR MORE AREAS, EACH 15 MINUTES; THERAPEUTIC EXERCISES TO DEVELOP STRENGTH AND ENDURANCE, RANGE OF MOTION AND FLEXIBILITY 2007 DoD APPLICATION OF A MODALITY TO 1 OR MORE AREAS; HOT OR COLD PACKS 2007 DoD THERAPEUTIC PROCEDURE, 1 OR MORE AREAS, EACH 15 MINUTES; THERAPEUTIC EXERCISES TO DEVELOP STRENGTH AND ENDURANCE, RANGE OF MOTION AND FLEXIBILITY 2007 DoD THERAPEUTIC PROCEDURE, 1 OR MORE AREAS, EACH 15 MINUTES; GAIT TRAINING (INCLUDES STAIR CLIMBING) 2007 DoD APPLICATION OF A MODALITY TO 1 OR MORE AREAS; HOT OR COLD PACKS 2007 DoD APPLICATION OF A MODALITY TO 1 OR MORE AREAS; HOT OR COLD PACKS 2007 DoD OCCUPATIONAL THERAPY EVALUATION 2007 DoD APPLICATION OF A MODALITY TO 1 OR MORE AREAS; HOT OR COLD PACKS 2007 [facility] POSTOPERATIVE FOLLOW-UP VISIT, NORMALLY INCLUDED IN THE SURGICAL PACKAGE, INDICATE THAT EVALUATION & MANAGEMENT SERVICE WAS PERFORMED DURING A POSTOPERATIVE PERIOD REASON RELATED ORIGINAL PROCEDURE 2007 [facility] SKIN TEST; TUBERCULOSIS, INTRADERMAL 2006 [facility] PURE TONE AUDIOMETRY (THRESHOLD); AIR ONLY 2006 DoD ELECTROCARDIOGRAM, ROUTINE ECG WITH AT LEAST 12 LEADS; WITH INTERPRETATION AND REPORT 2017 DoD SCREENING TEST, PURE TONE, AIR ONLY 2016 DoD ELECTROCARDIOGRAM, ROUTINE ECG WITH AT LEAST 12 LEADS; WITH INTERPRETATION AND REPORT 2016 DoD SCREENING TEST, PURE TONE, AIR ONLY 2015 DoD ELECTROCARDIOGRAM, ROUTINE ECG WITH AT LEAST 12 LEADS; WITH INTERPRETATION AND REPORT 2015 [facility] DETERMINATION OF REFRACTIVE STATE 2015 [facility] PURE TONE AUDIOMETRY (THRESHOLD); AIR ONLY 2014 [facility] SCREENING TEST OF VISUAL ACUITY, QUANTITATIVE, BILATERAL 2014 [facility] SCREENING FOR DEPRESSION PERFORMED (DEM) 2014 DoD NEUROPSYC TSTNG(EG,ZAIRA-REIT AN NEUROPSYC MAGDI,ROSA MARIA [facility] SCALES&[place] CARD SORT TST),W QUALIFIED [facility] CARE PROFSIONAL INTERP&RPT,ADMINISTERE D FACE WORKER,/HR,TECHNIC SARITA VEGAE-2-E 2014 [facility] NEUROPSYC TSTNG(EG,ZAIRA-REIT AN NEUROPSYC MAGDI,ROSA MARIA MEM[place] SCALES&[place] CARD SORT TST),W QUALIFIED [facility] CARE PROFSIONAL INTERP&RPT,ADMINISTERE D FACE WORKER,/HR,TECHNIC SARITA VEGAE-2-E 2014 [facility] PSYCHIATRIC DIAGNOSTIC EVALUATION 2014 [facility] SCREENING TEST, PURE TONE, AIR ONLY 2013 [facility] PATIENT EDUCATION, NOT OTHERWISE CLASSIFIED, NON-PHYSICIAN PROVIDER, INDIVIDUAL, PER SESSION 2013 [facility] Physical Therapy: ___ Se ion Segments, 15 Minutes Each Physical Therapy: ___ Session Segments, 15 Minutes Each [id number] 2007 ARLENE WHIPPLE [facility] Modalities Electrical Stimulation Modalities Electrical Stimulation 69269 2007 ARLENE WHIPPLE [facility] Physical Therapy Neuromuscular Re-education Physical Therapy Neuromuscular Re-education 12052 2007 [facility] Physical Therapy: ___ Se ion Segments, 15 Minutes Each Physical Therapy: ___ Session Segments, 15 Minutes Each [id number] 2007 [facility] Physical Therapy Neuromuscular Re-education Physical Therapy Neuromuscular Re-education 30226 2007 [facility] Physical Therapy: ___ Se ion Segments, 15 Minutes Each Physical Therapy: ___ Session Segments, 15 Minutes Each [id number] 2007 [facility] Physical Therapy: ___ Se ion Segments, 15 Minutes Each Physical Therapy: ___ Session Segments, 15 Minutes Each [id number] 2007 JESSICA CHRISTENSEN I x 55 minutes DoD Physical Therapy: ___ Se ion Segments, 15 Minutes Each Physical Therapy: ___ Session Segments, 15 Minutes Each [id number] 2007 JESSICA CHRISTENSEN I x 50 minutes [facility] Physical Therapy: ___ Se ion Segments, 15 Minutes Each Physical Therapy: ___ Session Segments, 15 Minutes Each 70981 2007 HERMINIO BONILLA [facility] Physical Therapy Service Re-Evaluation Physical Therapy Service Re-Evaluation 74075 2007 HERMINIO BONILLA ANNE [facility] Physical Therapy: ___ Se ion Segments, 15 Minutes Each Physical Therapy: ___ Session Segments, 15 Minutes Each [id number] 2007 JESSICA CHRISTENSEN I x 45 minutes [facility] Modalities Cryotherapy Cold Packs Modalities Cryotherapy Cold Packs 47972 2007 [facility] Physical Therapy: ___ Se ion Segments, 15 Minutes Each Physical Therapy: ___ Session Segments, 15 Minutes Each [id number] 2007 [facility] Physical Therapy: ___ Se ion Segments, 15 Minutes Each Physical Therapy: ___ Session Segments, 15 Minutes Each [id number] 2007 JESSICA CHRISTENSEN I x 45 minutes [facility] Physical Therapy: ___ Se ion Segments, 15 Minutes Each Physical Therapy: ___ Session Segments, 15 Minutes Each [id number] 2007 HERMINIO BONILLA [facility] Physical Therapy: ___ Se ion Segments, 15 Minutes Each Physical Therapy: ___ Session Segments, 15 Minutes Each 10116 2007 HERMINIO BONILLA [facility] Modalities Cryotherapy Cold Packs Modalities Cryotherapy Cold Packs 89142 2007 JESSICA CHRISTENSEN I x 5 minutes [facility] Physical Therapy: ___ Se ion Segments, 15 Minutes Each Physical Therapy: ___ Session Segments, 15 Minutes Each [id number] 2007 JESSICA CHRISTENSEN I x 30 minutes [facility] Physical Therapy: ___ Se ion Segments, 15 Minutes Each Physical Therapy: ___ Session Segments, 15 Minutes Each 76728 2007 HERMINIO BONILLA A isted Exercises For ROM Assisted [place]ercises [place] 09353 2007 [facility] Modalities Heat Hot Packs Modalities Heat Hot Packs 43880 [facility] Physical Therapy: ___ Se ion Segments, 15 Minutes Each Physical Therapy: ___ Session Segments, 15 Minutes Each 31734 2007 HERMINIO BONILLA Physical Therapy: ___ Se ion Segments, 15 Minutes Each Physical Therapy: ___ Session Segments, 15 Minutes Each 53835 2007 HERMINIO BONILLA A isted Exercises For ROM Ass[place] 33449 2007 STEPHEN BRYANT [facility] Modalities Heat Hot Packs Modalities Heat Hot Packs 73436 2007 STEPHEN BRYANT [facility] Physical Therapy: ___ Se ion Segments, 15 Minutes Each Physical Therapy: ___ Session Segments, 15 Minutes Each 47519 2007 HERMINIO BONILLA isted Exercises For ROM Ass[place] 44730 2007 MALATHI CARNEY Modalities Heat Hot Packs Modalities Heat Hot Packs 79623 2007 MALATHI CARNEY [facility] Physical Therapy: ___ Se ion Segments, 15 Minutes Each Physical Therapy: ___ Session Segments, 15 Minutes Each 94080 2007 HERMINIO BONILLA Physical Therapy Gait Training Physical Therapy Gait Training 00984 2007 HERMINIO BONILLA [facility] Physical Therapy: ___ Se ion Segments, 15 Minutes Each Physical Therapy: ___ Session Segments, 15 Minutes Each 91464 2007 HERMINIO BONILLA Physical Therapy Service Re-Evaluation Physical Therapy Service Re-Evaluation 63853 2007 HERMINIO BONILLA A isted Exercises [place] 49848 2007 MALATHI CARNEY Modalities Heat Hot Packs Modalities Heat Hot Packs 96996 2007 MALATHI CARNEY [facility] A isted Exercises For ROM Assisted [place] 07260 2007 STEPHEN BRYANT [facility] Modalities Heat Hot Packs Modalities Heat Hot Packs 44411 2007 STEPHEN BRYANT [facility] Occupational Therapy Evaluation Occupational Therapy Evaluation 81515 2007 JAYCOB BUCKNER [facility] Physician Supervised Services Provision Of Educational Supplies Physician Supervised Services Provision Of Educational Supplies 42812 2007 HERMINIO BONILLA [facility] Physical Therapy: ___ Se ion Segments, 15 Minutes Each Physical Therapy: ___ Session Segments, 15 Minutes Each 49441 2007 HERMINIO BONILLA [facility] Physical Therapy Service Evaluation Physical Therapy Service Evaluation 74498 2007 HERMINIO BONILLA [facility] Audiometry Group Testing Audiometry Group Testing 93737 2006 DEBBIE CHACKO [facility] Threshold Audiogram (Pure Tone) Threshold Audiogram (Pure Tone) 59606 2006 DEBBIE CHACKO [facility] Physical Therapy Service Re-Evaluation Physical Therapy Service Re-Evaluation 39747 2007 HERMINIO BONILLA [facility] Chiropractic Manip Treatmt (CMT) Spinal One To Two [facility] (CMT) Spinal One To Two [facility] 95060 2007 SHIRLEY REYNOSO [facility] Physical Therapy: ___ Se ion Segments, 15 Minutes Each Physical Therapy: ___ Session Segments, 15 Minutes Each 36788 2007 ANASTACIA PARHAM [facility] Physical Medicine - Group Physical Therapy Se ion Physical Medicine - Group Physical Therapy Session 93515 2007 ANASTACIA PARHAM Physical Medicine - Group Physical Therapy Se ion Physical Medicine - Group Physical Therapy Session 75413 2007 ANASTACIA PARHAM [facility] Physical Therapy: ___ Se ion Segments, 15 Minutes Each Physical Therapy: ___ Session Segments, 15 Minutes Each 75001 2007 ANASTACIA PARHAM 1:1 x 30 min [facility] Physical Medicine - Group Physical Therapy Se ion Physical Medicine - Group Physical Therapy Session 56263 2007 TATY SANTOS A isted Exercises For ROM Assisted Exercises For ROM 29443 2007 MIKEY RICE [facility] Modalities Heat Hot Packs Modalities Heat Hot Packs 11219 2007 MIKEY RICE [facility] Occup Therapy & Vocation Rehab Work Hardening / Conditioning Occup Therapy & Vocation Rehab Work Hardening / Conditioning 58251 2007 MIKEY RICE [facility] Physical Medicine - Group Physical Therapy Se ion Physical Medicine - Group Physical Therapy Session 39659 2007 TATY SANTOS [facility] Chiropractic Manip Treatmt (CMT) Spinal One To Two [facility] Manip Treat[facility] (CMT) Spinal One To Two [facility] 14908 2007 HSIRLEY REYNOSO [facility] A isted Exercises For ROM Assisted [place] ROM 56961 2007 MIRTA LIU [facility] Modalities Heat Hot Packs Modalities Heat Hot Packs 69662 2007 MIRTA LIU [facility] Occup Therapy & Vocation Rehab Work Hardening / Conditioning Occup Therapy & Vocation Rehab Work Hardening / Conditioning 82717 2007 [facility] LIU [facility] Physical Medicine - Group Physical Therapy Se ion Physical Medicine - Group Physical Therapy Session 07559 2007 ANASTACIA PARHAM [facility] Physical Therapy: ___ Se ion Segments, 15 Minutes Each Physical Therapy: ___ Session Segments, 15 Minutes Each 39421 2007 ANASTACIA PARHAM 1:1 x30 min [facility] Modalities Heat Hot Packs Modalities Heat Hot Packs 81909 2007 MALATHI CARNEY Occup Therapy & Vocation Rehab Work Hardening / Conditioning Occup Therapy & Vocation Rehab Work Hardening / Conditioning 84932 2007 MALATHI CARNEY Physical Medicine - Group Physical Therapy Se ion Physical Medicine - Group Physical Therapy Session 30291 2007 TATY SANTOS [facility] Patient Counseling Medical Management Individual Patient Patient Counseling Medical Management Individual Patient [id number] 2007 HERMINIO BONILLA [facility] Physical Therapy Service Re-Evaluation Physical Therapy Service Re-Evaluation 57855 2007 HERMINIO BONILLA [facility] Occup Therapy & Vocation Rehab Work Hardening / Conditioning Occup Therapy & Vocation Rehab Work Hardening / Conditioning 42873 2007 MIKEY RICE [facility] Modalities Heat Hot Packs Modalities Heat Hot Packs 98490 2007 MIKEY RICE [facility] Physical Medicine - Group Physical Therapy Se ion Physical Medicine - Group Physical Therapy Session 30869 2007 [facility] Occup Therapy & Vocation Rehab Work Hardening / Conditioning Occup Therapy & Vocation Rehab Work Hardening / Conditioning 22973 2007 MAYRA PHELAN A x 20 mins DoD A isted Exercises For ROM Assisted Exercises For ROM 70978 2007 MAYRA PHELAN A x 15 mins [facility] Physical Medicine - Group Physical Therapy Se ion Physical Medicine - Group Physical Therapy Session 68444 2007 ANASTACIA PARHAM Physical Therapy: ___ Se ion Segments, 15 Minutes Each Physical Therapy: ___ Session Segments, 15 Minutes Each 83271 2007 ANASTACIA PARHAM [facility] A isted Exercises For ROM Assisted Exercises For ROM 42686 2007 MIKEY RICE [facility] Physical Therapy Ma age Physical Therapy Massage 47670 2007 MIKEY RICE Occup Therapy & Vocation Rehab Work Hardening / Conditioning Occup Therapy & Vocation Rehab Work Hardening / Conditioning 12395 2007 MIKEY RICE Modalities Heat Hot Packs Modalities Heat Hot Packs 96899 2007 MIKEY RICE [facility] A isted Exercises For ROM Assisted Exercises For ROM 79199 2007 MIKEY RICE [facility] Physical Therapy Ma age Physical Therapy Massage 95411 2007 MIKEY RICE Occup Therapy & Vocation Rehab Work Hardening / Conditioning Occup Therapy & Vocation Rehab Work Hardening / Conditioning 07823 2007 MIKEY RICE Modalities Heat Hot Packs Modalities Heat Hot Packs 01500 2007 MIKEY RICE Physical Medicine - Group Physical Therapy Se ion Physical Medicine - Group Physical Therapy Session 36262 2007 ANASTACIA PARHAM Physical Therapy: ___ Se ion Segments, 15 Minutes Each Physical Therapy: ___ Session Segments, 15 Minutes Each 74926 2007 ANASTACIA PARHAM Occup Therapy & Vocation Rehab Work Hardening / Conditioning Occup Therapy & Vocation Rehab Work Hardening / Conditioning 12427 2007 MIKEY RICE A isted Exercises For ROM Assisted Exercises For ROM 39201 2007 MIKEY RICE Physical Therapy Ma age Physical Therapy Massage 83793 2007 MIKEY RICE Modalities Heat Hot Packs Modalities Heat Hot Packs 44634 2007 MIKEY RICE A isted Exercises For ROM Assisted Exercises [place] ROM 77808 2007 MIKEY RICE Occup Therapy & Vocation Rehab Work Hardening / Conditioning Occup Therapy & Vocation Rehab Work Hardening / Conditioning 69202 2007 MIKEY RICE Physical Therapy Ma age Physical Therapy Massage 96763 2007 MIKEY RICE Modalities Heat Hot Packs Modalities Heat Hot Packs 81902 2007 MIKEY RICE Physical Medicine - Group Physical Therapy Se ion Physical Medicine - Group Physical Therapy Session 41272 2007 ANASTACIA PARHAM [facility] Physical Therapy: ___ Se ion Segments, 15 Minutes Each Physical Therapy: ___ Session Segments, 15 Minutes Each 03346 2007 ANASTACIA PARHAM [facility] Mobilization Soft Ti ue Mobilization Soft Tissue 89525 2007 LIU KIRBY Occup Therapy & Vocation Rehab Work Hardening / Conditioning Occup Therapy & Vocation Rehab Work Hardening / Conditioning 18077 2007 LIU KIRBY [facility] Physical Medicine - Group Physical Therapy Se ion Physical Medicine - Group Physical Therapy Session 13717 2007 ANASTACIA PARHAM [facility] Physical Therapy: ___ Se ion Segments, 15 Minutes Each Physical Therapy: ___ Session Segments, 15 Minutes Each 68327 2007 ANASTACIA PARHAM Modalities Heat Hot Packs Modalities Heat Hot Packs 29325 2007 MAYRA PHELAN x 15 mins DoD Occup Therapy & Vocation Rehab Work Hardening / Conditioning Occup Therapy & Vocation Rehab Work Hardening / Conditioning 51170 2007 MAYRA PHELAN x 40 mins DoD Mobilization Soft Ti ue Mobilization Soft Tissue 71267 2007 MAYRA PHELAN DoD Occup Therapy & Vocation Rehab Work Hardening / Conditioning Occup Therapy & Vocation Rehab Work Hardening / Conditioning 28415 2007 MAYRA PHELAN 40 mins [facility] Physical Medicine - Group Physical Therapy Se ion Physical Medicine - Group Physical Therapy Session 41199 2007 ANASTACIA PARHAM [facility] Physical Therapy: ___ Se ion Segments, 15 Minutes Each Physical Therapy: ___ Session Segments, 15 Minutes Each 26428 2007 ANASTACIA PARHAM [facility] Occup Therapy & Vocation Rehab Work Hardening / Conditioning Occup Therapy & Vocation Rehab Work Hardening / Conditioning 65764 2007 STEPHEN BRYANT [facility] Occup Therapy & Vocation Rehab Work Hardening / Conditioning Occup Therapy & Vocation Rehab Work Hardening / Conditioning 15427 2007 MAYRA PHELAN x 30 mins [facility] Mobilization Soft Ti ue Mobilization Soft Tissue 66656 2007 MAYRA PHELAN x 15 mins DoD Occup Therapy & Vocation Rehab Work Hardening / Conditioning Occup Therapy & Vocation Rehab Work Hardening / Conditioning 79377 2007 LIU KIRBY [facility] Modalities Heat Hot Packs Modalities Heat Hot Packs 73843 2007 LIU KIRBY [facility] Physical Therapy: ___ Se ion Segments, 15 Minutes Each Physical Therapy: ___ Session Segments, 15 Minutes Each 83358 2007 HERMINIO BONILLA [facility] Patient Counseling Medical Management Individual Patient Patient Counseling Medical Management Individual Patient [id number] 2007 HERMINIO BONILLA [facility] Physical Therapy Service Re-Evaluation Physical Therapy Service Re-Evaluation 61086 2007 HERMINIO BONILLA [facility] Occup Therapy & Vocation Rehab Work Hardening / Conditioning Occup Therapy & Vocation Rehab Work Hardening / Conditioning 21634 2007 STEPHEN BRYANT [facility] Modalities Heat Hot Packs Modalities Heat Hot Packs 07182 2007 STEPHEN BRYANT [facility] Mobilization Soft Ti ue Mobilization Soft Tissue 89216 2007 MALATHI CARNEY [facility] Occup Therapy & Vocation Rehab Work Hardening / Conditioning Occup Therapy & Vocation Rehab Work Hardening / Conditioning 07840 2007 MALATHI CARNEY Modalities Heat Hot Packs Modalities Heat Hot Packs 25317 2007 MALATHI CARNEY [facility] Occup Therapy & Vocation Rehab Work Hardening / Conditioning Occup Therapy & Vocation Rehab Work Hardening / Conditioning 60903 2007 MAYRA PHELAN x 30 mins DoD Mobilization Soft Ti ue Mobilization Soft Tissue 82822 2007 MAYRA PHELAN DoD Modalities Heat Hot Packs Modalities Heat Hot Packs 81165 2007 MAYRA PHELAN [facility] Patient Counseling Medical Management Five To Eight Patients Patient Counseling Medical Management Five To Eight Patients 64477 2007 MISTI BERRY [facility] Physical Medicine - Group Physical Therapy Se ion Physical Medicine - Group Physical Therapy Session 45751 2007 MISTI BERRY [facility] Occup Therapy & Vocation Rehab Work Hardening / Conditioning Occup Therapy & Vocation Rehab Work Hardening / Conditioning 64360 2007 MAYRA PHELAN x 30 mins - theraputty for strengthening DoD Mobilization Soft Ti ue Mobilization Soft Tissue 58059 2007 MAYRA PHELAN x 15 mins [facility] Modalities Heat Hot Packs Modalities Heat Hot Packs 49366 2007 MAYRA PHELAN x 15 mins [facility] Physical Medicine - Group Physical Therapy Se ion Physical Medicine - Group Physical Therapy Session 98788 2007 MISTI BERRY [facility] Patient Counseling Medical Management Five To Eight Patients Patient Counseling Medical Management Five To Eight Patients [id number] 2007 MISTI BERRY [facility] Physical Medicine - Group Physical Therapy Se ion Physical Medicine - Group Physical Therapy Session 02031 2007 AKBAR DIXON [facility] Physical Medicine - Group Physical Therapy Se ion Physical Medicine - Group Physical Therapy Session [id number] 2007 AKBAR DIXON [facility] Physical Therapy: ___ Se ion Segments, 15 Minutes Each Physical Therapy: ___ Session Segments, 15 Minutes Each [id number] 2007 AKBAR DIXON [facility] Physical Medicine - Group Physical Therapy Se ion Physical Medicine - Group Physical Therapy Session 87327 2007 HERMINIO BONILLA [facility] Patient Counseling Medical Management Five To Eight Patients Patient Counseling Medical Management Five To Eight Patients [id number] 2007 HERMINIO BONILAL [facility] Patient Counseling Medical Management Individual Patient Patient Counseling Medical Management Individual Patient [id number] 2007 HERMINIO BONILLA [facility] Physical Therapy Service Re-Evaluation Physical Therapy Service Re-Evaluation 92392 2007 HERMINIO BONILLA [facility] Biofeedback Training By Any Modality Biofeedback Training By Any Modality 61323 2007 ARLENE WHIPPLE [facility] Physical Therapy: ___ Se ion Segments, 15 Minutes Each Physical Therapy: ___ Session Segments, 15 Minutes Each 43715 2007 ARLENE WHIPPLE [facility] Modalities Cryotherapy Cold Packs Modalities Cryotherapy Cold Packs 53306 [facility] Biofeedback Training By Any Modality Biofeedback Training By Any Modality 08744 2007 ARLENE WHIPPLE [facility] Physical Therapy Neuromuscular Re-education Physical Therapy Neuromuscular Re-education 46873 2007 ARLENE WHIPPLE [facility] Physical Therapy: ___ Se ion Segments, 15 Minutes Each Physical Therapy: ___ Session Segments, 15 Minutes Each 68388 2007 ARLENE WHIPPLE [facility] Modalities Electrical Stimulation Modalities Electrical Stimulation 08247 2007 ARLENE WHIPPLE E-Stim c Biofeedback x 10 mins. [facility] Physical Therapy Neuromuscular Re-education Physical Therapy Neuromuscular Re-education 02145 2007 ARLENE WHIPPLE Biofeedback c E-Stim x 10 mins. [facility] Electrocardiogram Electrocardiogram 27938 03/14 KAYLYNKERRIE HERNANDEZ [facility] Electrocardiogram Electrocardiogram 23663 02/24 KERRIE PATIÑO [facility] Audiogram (Screening) Audiogram (Screening) 81564 2016 SCOUT MARINELLI [facility] ECG 12-Lead With Interpretation And Report ECG 12-Lead With Interpretation And Report 88493 2015 KAYLYNKERRIE HERNANDEZ [facility] Audiogram (Screening) Audiogram (Screening) 15619 2015 DORA CRABTREE [facility] Extensive Color Vision Testing Extensive Color Vision Testing 78873 2015 BONG HARGROVE [facility] Ophthalmological New Patient Start Comprehensive Care Ophthalmological New Patient Start Comprehensive Care [id number] 2015 BONG HARGROVE [facility] Determination Of Refractive State Determination Of Refractive State 78984 2015 BONG HARGROVE [facility] Screening Test Of Visual Acuity, Quantitative, Bilateral Screening Test Of Visual Acuity, Quantitative, Bilateral 00267 2014 STACEY GOLDSMITH [facility] Threshold Audiogram (Pure Tone) Threshold Audiogram (Pure Tone) 90535 2014 TRISHA SERNA [facility] Preventive Medicine Screening For Depre ion Preventive Medicine Screening For Depression 3725F 2014 ROSALBA TOLLIVER [facility] Psychometric Neuropsych Testing Battery Admin By Physician Psychometric Neuropsych Testing Battery Admin By Physician 56839 2014 NU SEWELL [facility] Psychometric Neuropsych Testing Battery Admin By [employer]ocker [employer] Servicer Psychometric Neuropsych Testing Battery Admin By [employer] Servicer 89521 2014 NU SEWELL [facility] Psychiatric Diagnostic Evaluation Psychiatric Diagnostic Evaluation 65813 2014 NU SEWELL [facility] Audiogram (Screening) Audiogram (Screening) 72000 2013 DORA CRABTREE [facility] Patient education, not otherwise cla ified, non-physician provider, individual, per se ion 2013 KERRIE PATIÑO [facility] Visual Function Screening Visual Function Screening 00690 2013 KERRIE PATIÑO [facility] Case Management, each 15 minutes 2008 CASSANDRA MICHELE [facility] Psychiatric Diagnostic Evaluation Review of Records and Reports Psychiatric Diagnostic Evaluation Review of Records and Reports 93626 2008 MAYRA TOLEDO [facility] Clinical Social Work Individual Outpatient Counseling 30 Minutes Clinical Social Work Individual Outpatient Counseling 30 Minutes 95650 2008 COLT MARINELLI [facility] Modalities Traction Manual (Each Region 15 Minutes) Modalities Traction Manual (Each Region 15 Minutes) 71746 2008 SHIRLEY REYNOSO < 2 MIN DoD Mobilization Soft Ti ue Mobilization Soft Tissue 03536 2008 REYNOSO SHIRLEY < 2 MIN DoD Chiropractic Manip Treatmt (CMT) Spinal One To Two [facility] Chiropractic Manip Treatmt (CMT) Spinal One To Two [facility] 98942 2008 SHIRLEY REYNOSO DoD Mobilization Soft Ti ue Mobilization Soft Tissue 09139 2008 REYNOSO SHIRLEY < 2 min DoD Modalities Traction Manual (Each Region 15 Minutes) Modalities Traction Manual (Each Region 15 Minutes) 51183 2008 SHIRLEY REYNOSO < 2 min DoD Chiropractic Manip Treatmt (CMT) Spinal One To Two [facility] Chiropractic Manip Treatmt (CMT) Spinal One To Two [facility] 34634 2008 SHIRLEY REYNOSO Mobilization Soft Ti ue Mobilization Soft Tissue 03793 2008 SHIRLEY REYNOSO <5 min Vanessa Modalities Traction Manual (Each Region 15 Minutes) Modalities Traction Manual (Each Region 15 Minutes) 44477 2008 SHIRLEY REYNOSO <5 min Vanessa Chiropractic Manip Treatmt (CMT) Spinal One To Two [facility] Chiropractic Manip Treatmt (CMT) Spinal One To Two [facility] 61793 2008 SHIRLEY REYNOSO Chiropractic Manip Treatmt (CMT) Spinal One To Two [facility] Chiropractic Manip Treatmt (CMT) Spinal One To Two [facility] 30173 2008 SHIRLEY REYNOSO Occupational Therapy Evaluation Occupational Therapy Evaluation 85182 2008 VANESA PATTON [facility] Physical Therapy Service Re-Evaluation Physical Therapy Service Re-Evaluation 23618 2008 ENMANUEL BARRIENTOS Chiropractic Manip Treatmt (CMT) Spinal One To Two [facility] Chiropractic Manip Treatmt (CMT) Spinal One To Two [facility] 42761 2008 SHIRLEY REYNOSO [facility] Chiropractic Manip Treatmt (CMT) Spinal One To Two [facility] Chiropractic Manip Treatmt (CMT) Spinal One To Two [facility] 73328 2008 SHIRLEY REYNOSO [facility] Physical Therapy Service Evaluation Physical Therapy Service Evaluation 07129 2008 ENMANUEL BARRIENTOS [facility] Patient Counseling Medical Management Individual Patient Patient Counseling Medical Management Individual Patient [id number] 2008 GASTON VELASCO [facility] Physician Supervised Services Provision Of Special Supplies Physician Supervised Services Provision Of Special Supplies 34880 2008 GASTON VELASCO [facility] Range Of Motion Evaluation Of Extremity Range Of Motion Evaluation Of Extremity 10834 2008 SHIRLEY REYNOSO Chiropractic Manip Treatmt (CMT) Spinal One To Two [facility] Chiropractic Manip Treatmt (CMT) Spinal One To Two [facility] 63536 2008 SHIRLEY REYNOSO [facility] Physical Therapy Service Re-Evaluation Physical Therapy Service Re-Evaluation 14137 2008 GREGORIO ELIZALDE [facility] Chiropractic Manip Treatmt (CMT) Spinal One To Two [facility] Chiropractic Manip Treatmt (CMT) Spinal One To Two [facility] 45727 2007 SHIRLEY REYNOSO [facility] Range Of Motion Evaluation Of Extremity Range Of Motion Evaluation Of Extremity 52932 2007 SHIRLEY REYNOSO [facility] Physical Therapy: ___ Se ion Segments, 15 Minutes Each Physical Therapy: ___ Session Segments, 15 Minutes Each 91549 2007 HERMINIO BONILLA [facility] Patient Counseling Medical Management Individual Patient Patient Counseling Medical Management Individual Patient [id number] 2007 HERMINIO BONILLA [facility] Physical Therapy Service Re-Evaluation Physical Therapy Service Re-Evaluation 66261 2007 HERMINIO BONILLA [facility] Modalities Heat Hot Packs Modalities Heat Hot Packs 60344 2007 SHIRLEY REYNOSO 8 min [facility] Modalities Electrical Stimulation Modalities Electrical Stimulation 46518 2007 SHIRLEY REYNOSO 8 min [facility] Chiropractic Manip Treatmt (CMT) Spinal One To Two [facility] Chiropractic Manip Treatmt (CMT) Spinal One To Two [facility] 77051 2007 SHIRLEY REYNOSO [facility] Range Of Motion Evaluation Of Extremity Range Of Motion Evaluation Of Extremity 93841 2007 SHIRLEY REYNOSO [facility] Patient Counseling Medical Management Individual Patient Patient Counseling Medical Management Individual Patient [id number] 2007 HERMINIO BONILLA [facility] Physical Therapy Service Re-Evaluation Physical Therapy Service Re-Evaluation 65288 2007 HERMINIO BONILLA [facility] Physical Medicine - Group Physical Therapy Se ion Physical Medicine - Group Physical Therapy Session 36455 2007 FLAVIO SLADE [facility] Physical Medicine - Group Physical Therapy Se ion Physical Medicine - Group Physical Therapy Session 50767 2007 JERRI WINKLER [facility] Range Of Motion Evaluation Of Extremity Range Of Motion Evaluation Of Extremity 32377 2007 SHIRLEY REYNOSO [facility] Chiropractic Manip Treatmt (CMT) Spinal One To Two [facility] Chiropractic Manip Treatmt (CMT) Spinal One To Two [facility] 81796 2007 SHIRLEY REYNOSO [facility] Evaluation of Speech / Hearing Problem 2007 RYNE MACHUCA [facility] Patient Counseling Medical Management Five To Eight Patients Patient Counseling Medical Management Five To Eight Patients [id number] 2007 NORAH HENDRIX [facility] Physical Medicine - Group Physical Therapy Se ion Physical Medicine - Group Physical Therapy Session 25947 2007 NORAH HENDRIX [facility] Physical Medicine - Group Physical Therapy Se ion Physical Medicine - Group Physical Therapy Session 51480 2007 FLAVIO SLADE [facility] Physical Medicine - Group Physical Therapy Se ion Physical Medicine - Group Physical Therapy Session 13196 2007 FLAVIO SLADE [facility] Physical Medicine - Group Physical Therapy Se ion Physical Medicine - Group Physical Therapy Session 03616 2007 JERRI WINLKER [facility] Clinical Social Work Individual Outpatient Counseling 30 Minutes Clinical Social Work Individual Outpatient Counseling 30 Minutes 62029 2007 MAGGIE RICKETTS [facility] Range Of Motion Evaluation Of Extremity Range Of Motion Evaluation Of Extremity 91736 2007 SHIRLEY REYNOSO [facility] Chiropractic Manip Treatmt (CMT) Spinal One To Two [facility] Chiropractic Manip Treatmt (CMT) Spinal One To Two [facility] 55561 2007 SHIRLEY REYNOSO [facility] Physical Medicine - Group Physical Therapy Se ion Physical Medicine - Group Physical Therapy Session 12262 2007 FLAVIO SLADE [facility] Motor - Performing Examination - Hand(s) Only Motor - Performing Examination - Hand(s) Only 97477 2007 STEPHEN BRYANT [facility] Psychometric Neurobehavioral Status Exam 2007 JOHNNY AZUL [facility] Physical Medicine - Group Physical Therapy Se ion Physical Medicine - Group Physical Therapy Session 91447 2007 FLAVIO SLADE [facility] Clinical Social Work Individual Outpatient Counseling 30 Minutes Clinical Social Work Individual Outpatient Counseling 30 Minutes 15084 2007 BOOKER ANDRES [facility] Behavioral health prevention education service (delivery of services with target population to affect knowledge, attitude and/or behavior) 2007 BOOKER ANDRES [facility] Influenza Virus Vaccine Intranasal Live Attenuated 2007 JOHNNY COOPER 0.1 each nare [facility] Immunization Admin By Intranasal / Oral Route One Vaccine Immunization Admin By Intranasal / Oral Route One Vaccine 30399 2007 JOHNNY COOPER [facility] Physical Medicine - Group Physical Therapy Se ion Physical Medicine - Group Physical Therapy Session 60319 2007 FLAVIO SLADE [facility] Case Management, each 15 minutes 2007 QUINCY BRODY [facility] Range Of Motion Evaluation Of Extremity Range Of Motion Evaluation Of Extremity 50940 2007 SHIRLEY REYNOSO [facility] Chiropractic Manip Treatmt (CMT) Spinal One To Two [facility] Chiropractic Manip Treatmt (CMT) Spinal One To Two [facility] 41550 2007 SHIRLEY REYNOSO [facility] Physical Medicine - Group Physical Therapy Se ion Physical Medicine - Group Physical Therapy Session 90910 2007 JERRI WINKLER [facility] Case Management, each 15 minutes 2007 ITA KOLB [facility] Physical Medicine - Group Physical Therapy Se ion Physical Medicine - Group Physical Therapy Session 12926 2007 TATY SANTOS [facility] Physical Medicine - Group Physical Therapy Se ion Physical Medicine - Group Physical Therapy Session 47543 2007 TATY SANTOS [facility] Chiropractic Manip Treatmt (CMT) Spinal One To Two [facility] Chiropractic Manip Treatmt (CMT) Spinal One To Two [facility] 04080 2007 SHIRLEY REYNOSO [facility] Physical Medicine - Group Physical Therapy Se ion Physical Medicine - Group Physical Therapy Session 93938 2007 TATY SANTOS [facility] Physical Medicine - Group Physical Therapy Se ion Physical Medicine - Group Physical Therapy Session 44444 2007 TATY SANTOS [facility] Physical Therapy: ___ Se ion Segments, 15 Minutes Each Physical Therapy: ___ Session Segments, 15 Minutes Each 93190 2007 TATY SANTOS face to face therex x 10mins [facility] Physical Therapy Service Re-Evaluation Physical Therapy Service Re-Evaluation 55859 2007 HERMINIO BONILLA [facility] Modalities Electrical Stimulation Modalities Electrical Stimulation 93497 2007 SHIRLEY REYNOSO [facility] Modalities Heat Hot Packs Modalities Heat Hot Packs 44176 2007 SHIRLEY REYNOSO [facility] Range Of Motion Evaluation Of Extremity Range Of Motion Evaluation Of Extremity 98593 2007 SHIRLEY REYNOSO [facility] Chiropractic Manip Treatmt (CMT) Spinal One To Two [facility] Chiropractic Manip Treatmt (CMT) Spinal One To Two [facility] 90465 2007 SHIRLEY REYNOSO [facility] Physical Therapy: ___ Se ion Segments, 15 Minutes Each Physical Therapy: ___ Session Segments, 15 Minutes Each 94057 2007 HERMINIO BONILLA [facility] Physical Therapy Service Re-Evaluation Physical Therapy Service Re-Evaluation 67634 2007 HERMINIO BONILLA [facility] Chiropractic Manip Treatmt (CMT) Spinal One To Two [facility] Chiropractic Manip Treatmt (CMT) Spinal One To Two [facility] 06208 2007 SHIRLEY REYNOSO [facility] Patient Counseling Medical Management Individual Patient Patient Counseling Medical Management Individual Patient [id number] 2007 JERRI WINKLER Physician Supervised Services Provision Of Educational Supplies Physician Supervised Services Provision Of Educational Supplies 49296 2007 JERRI WINKLER Patient Counseling Medical Management Individual Patient Patient Counseling Medical Management Individual Patient [id number] 2007 TONIA ISIDRO Discussed with patient post op wound care, pain management, importance of elevations and signs of infection. Important contact numbers were given to the patient in the event of complications. Patient verbalized understanding of these instructions. 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 Social History Type Response Date Comment Sourc e Tobacco smoking status NHIS VA-TOBACCO NEVER USED 05/15/2023 [facility] History of tobacco use VA-TOBACCO NEVER USED 05/13/2022 [facility] History of tobacco use VA-TOBACCO NEVER USED 01/13/2021 [facility] History of tobacco use VA-TOBACCO NEVER USED 09/30/2019 [facility] History of tobacco use VA-TOBACCO NEVER USED 08/22/2018 [facility] History of tobacco use LIFETIME NON-USER OF TOBACCO 06/06/2013 [facility] History of tobacco use LIFETIME NON-USER OF TOBACCO 03/12/2009 [facility] This section is an empty social history section. DoD Plan of Care List of future care activities from Department of Veterans Affairs facilities. Additional future care activities may be listed in the Assessment and Plan section. Date/Time Care Activity Care Activity Detail Facili ty 09/18/2024 AMBULATORY - NONE [facility] NONE [facility]
--- OUTSIDE RECORDS SUMMARY | 2024-04-16 20:04 | XMS_ITS | Encounter Summary ---
Author Organization [facility] Address [facility] [place] [address] Care Team Providers Care Gas Appliance Repairer Name Role Phone Aleksandra Dorado NP Primary Care Provider [phone] Encounter Details Date Type Department Care Team (Late st Contact Info) Description 02/24/2022 [employer] Message Enc [facility] Family Medicine - [place] [address] [place], [place] [address] Aleksandra Dorado NP [address] [place], [place] [address] Blood pressure check Social History Tobacco Use Types Packs/Day Years Used Date Smoking Tobacco: Never Passive Smoke Exposure: Never Smokeless Tobacco: Never Alcohol Use Standard Drinks/Week Comments Yes 0 (1 standard drink = 0.6 oz pur e alcohol) PHQ-2 Answer Date Recorded PHQ-2 Score - If the patient scores above 3, please move on to questions 3-9 0 12/23/2021 Sex and Gender Information Value Date Recorded Sex Assigned at Not on file Legal Sex Male 10:44 AM CDT Gender Identity Not on file Sexual Orientation Not on file documented as of this encounter Plan of Treatment Not on file documented as of this encounter Visit Diagnoses Not on filedocumented in this encounter Care Teams Gas Appliance Repairer Relationship Specialty Start Date End Date Aleksandra Dorado NP [address] [place], [place] [address] PCP - General NURSE PRACTITIONER 12/21/21 documented as of this encounter
--- OUTSIDE RECORDS SUMMARY | 2024-04-16 20:04 | XMS_ITS | Encounter Summary ---
Author Name [facility] [place] Organization [facility] Address [address] [place] [address] Care Team Providers Care Postal Service Mail Processor Name Role Phone AKBAR GRECO Primary Care Provider Unavail able RENA GONZALES Unavailable Unavailable ANDI GARCIA Unavailable Unavail able MATT LÓPEZ Unavailable Unavailable JENS STEVENS Unavailable Unavailable TENZIN EISENBERG Unavailable Unavailable ELIZABETH HERMAN Unavailable Unavail able JAVIER WHITEHEAD Unavailable Unavailable GLENIS JENNINGS Primary Care Provider Unavailabl e Insurance Providers: All historical and current Section Date Range: From patient's date of to the date document was created. This section includes the names of all active insurance providers for the patient. Insurance Provider Type of Coverage Plan Name Start of Policy Coverage End of Policy Coverage Group Number Member ID Insurance Provider's Telephone Number Policy Huang's Name Patient's Relationship to Policy Huang [facility] SE[facility] T WNR Oct 03, 2018 SELECT [id number] KANWAL AL PATIENT [facility] 2017 PRIME Oct 01, 2018 PRIME [id number] KANWAL [place] PATIENT FOR LIFE [facility] Aug 14, 2012 [id number] KANWAL AL PATIENT [facility] Jan 04, [address] [facility] [id number] [phone] KANWAL AL PATIENT Selected Encounter This section includes the information on record at [place] for the Encounter. Date/Time Encounter Type Encounter Description Reason Provider Source May 15, 2023 10:00 AM TELEHEALTH FACILITY FEE PRIMARY CARE/MEDICINE ICD-10-CM I10 Essential (primary) hypertension [facility] Encounter Template Text not used by [facility] Assessments - Encounter Diagnoses This section includes the primary and secondary diagnoses documented for the Encounter. Date/Time Primary/Secondary Diagnosis Diagnosis Name Provider Source May 15, 2023 10:29 AM PRIMARY Essential (primary) hypertension ASHVINFRANKLIN [facility] May 15, 2023 10:29 AM SECONDARY Allergic rhinitis, unspecified ASHVINFRANKLIN J [facility] Lab Results: +/- 30 days of the encounter This section includes the Chemistry and Hematology Lab Results on record with [facility] for the patient. Radiology Reports and Pathology Reports are provided separately, in subsequent sections. Lab Results This section contains the Chemistry/Hematology Results that were resulted 30 days before or 30 daysafter the date of the Encounter. Date/Time Source Result Type Result - Unit Interpretation Reference Range Comment May 15, 2023 10:45 AM [facility] VITAMIN D, 25-HYDROXY Specimen Type: SERUM No comment entered. Ordering Provider: FRANKLIN LOCK Report Released Date/Time: May 15, 2023 10:26 AM Reporting Lab: [facility] [address] [id number] Performing Lab: [facility] [address] [phone] VITAMIN D, 25-HYDROXY 47.6 ng/mL 30-96 May 15, 2023 10:45 AM [facility] CBC Specimen Type: BLOOD No comment entered. Ordering Provider: FRANKLIN LOCK Report Released Date/Time: May 15, 2023 10:26 AM Reporting Lab: [facility] [address] [phone] Performing Lab: [facility] [address] [address] WBC 3.9 10*3/uL 3.6-11.2 RBC 5.06 10*6/uL 4.10-5.70 HGB 14.7 g/dL 13.1-16.8 HCT 43.7 38.2-48.4 MCV 86.4 fL 80.0-100.0 MCH 29.1 pg 27.0-34.0 MCHC 33.6 g/dL 33.0-36.0 PLT 250 10*3/uL 150-400 MPV 10.1 fL 7.5-11.2 RDW 11.4 L 11.8-15.1 LYMPHOCYTES, AUTO % 32 MONOCYTES, AUTO % 9 NEUTROPHILS, AUTO % 54 EOSINOPHILS, AUTO % 3 BASOPHILS, AUTO % 1 LYMPHOCYTES, ABSOLUTE 1.25 10*3/uL 0.77-4.50 MONOCYTES, ABSOLUTE 0.37 10*3/uL 0.19-0.80 NEUTROPHILS, ABSOLUTE 2.14 10*3/uL 2.10-8.00 EOSINOPHILS, ABSOLUTE 0.13 10*3/uL 0.00-0.60 BASOPHILS, ABSOLUTE 0.03 10*3/uL 0.00-0.20 May 15, 2023 10:45 AM [facility] COMPREHENSIVE METABOLIC PANEL Specimen Type: PLASMA Comment: LDL calculation invalid when Triglyceride exceeds 250 mg/dl Ordering Provider: FRANKLIN LOCK Report Released Date/Time: May 15, 2023 10:26 AM Reporting Lab: [facility] [address] [address] Performing Lab: [facility] [address] [facility] [phone] CREATININE 1.01 mg/dL 0.7-1.3 UREA NITROGEN 14.6 mg/dL 9.0-25.0 GLUCOSE 125 mg/dL H 72-99 SODIUM 139 meq/L 136-145 POTASSIUM 3.6 meq/L 3.5-5 CHLORIDE 104 meq/L 98-107 CARBON DIOXIDE 25 meq/L 22-31 CALCIUM 9.6 mg/dL 8.4-10.4 PROTEIN 7.8 g/dL 6-8.6 ALBUMIN 4.6 g/dL 3.4-5 TOTAL BILIRUBIN 0.6 mg/dL 0.2-1.2 ALKALINE PHOSPHATASE 42 U/L 40-150 AST/SGOT 33 U/L 5-34 ALT/SGPT 53 U/L H 8-40 EGFR (CKD-EPI 2020) 99.5 >60 May 15, 2023 10:45 AM [facility] LIPID PANEL (STL) Specimen Type: PLASMA Comment: LDL calculation invalid when Triglyceride exceeds 250 mg/dl Ordering Provider: FRANKLIN LOCK Report Released Date/Time: May 15, 2023 10:26 AM Reporting Lab: [facility] [address] [facility] [phone] Performing Lab: [facility] [address] [place] [phone] CHOLESTEROL 187 mg/dL 0-200 TRIGLYCERIDE 262 mg/dL H 0-150 DIRECT LDL 121 mg/dL >100 CALCULATED LDL comment mg/dL HDL(New) 30 mg/dL L >40 May 15, 2023 10:45 AM [facility] MICRAL/CREAT PROFILE (STL) Specimen Type: URINE Comment: uALB/CREAT Ratio Unable to be calculated Unable to calculate due to Microalbumin < 5.0 mg/L Ordering Provider: FRANKLIN LOCK Report Released Date/Time: May 15, 2023 10:26 AM Reporting Lab: [facility] [address] [facility] [phone] Performing Lab: [facility] [address] [place] [phone] URINE ALBUMIN (PB-STL) <5.0 mg/L uACR (STL) comment mg/g 0-29 CREATININE URINE/OTHERS 65.3 mg/dL 63-166 Vital Signs: All taken on the encounter date This section contains inpatient and outpatient Vital Signs collected on the date of the Encounter. Date/Time Temperature Pulse Blood Pressure Respiratory Rate SP02 Pain Height Weight Body Mass Index Source May 15, 2023 09:53 AM 142/74 [facility] May 15, 2023 09:53 AM 98.7 88 168/96 [address] [facility] Social History: Smoking Status (Most current) and Tobacco Use (All prior to encounter date) This section includes the most current, and the historical, smoking and tobacco- related health factors from the [place] facility where the Encounter took place. Current Smoking Status This section includes the most current smoking, or tobacco-related health factor, from the [place] facility where the Encounter took place. Date/Time Current Smoking Status Comment Shayne ordazy May 15, 2023 10:00 AM VA-TOBACCO NEVER USED [facility] Tobacco Use History This section includes a history of the smoking, or tobacco-related health factors, that were collected on or before the date of the Encounter. The data comes from the [place] facility where the Encounter took place. Date/Time Smoking Status/Tobacco Use Comment F acility May 13, 2022 09:30 AM VA-TOBACCO NEVER USED [facility] Jan 13, 2021 03:00 PM VA-TOBACCO NEVER USED [facility] Sep 30, 2019 09:29 AM VA-TOBACCO NEVER [facility]ED [facility] Aug 22, 2018 12:01 PM VA-TOBACCO NEVER [facility]ED [facility] Encounter Notes: All associated encounter notes This section contains the clinical notes associated to the Encounter. Date/Time Encounter Note(s) Provider Source May 19, 2023 09:27 AM PHYSICIAN LETTERS: LOCAL TITLE: TEST RESULT GENERAL LETTER STL STANDARD TITLE: PHYSICIAN LETTERS DATE OF NOTE: MAY 19, 2023@09:27 ENTRY DATE: MAY 19, 2023@09:32:36 AUTHOR: FRANKLIN LOCK EXP COSIGNER: URGENCY: STATUS: COMPLETED [facility] [address] [place] [address] MAY 19, 2023 NARCISO AL [address] [place], [place] [address] Dear Narciso Al, I would like to update you on your recent test results. LIPID PROFILE - High cholesterol and triglycerides (lipids) are risk factors for heart disease. Your cholesterol should fall between 140 and 200, and your triglycerides levels should be less than or equal to 150. HDL is the good cholesterol and should ideally be greater than 40. LDL is the bad cholesterol and optimal levels should be less than 100 (near optimal is between 100 and 129). TRIGLYCERIDE 262 H mg/dL 05/15/2023 10:45 CHOLESTEROL 187 mg/dL 05/15/2023 10:45 HDL(New) 30 L mg/dL 05/15/2023 10:45 DIRECT LDL 121 mg/dL 05/15/2023 10:45 CALCULATED LDL comment mg/dL 05/15/2023 10:45 DIRECT LDL 121 mg/dL 05/15/2023 10:45 These results are abnormal. ELEVATED TRIG- PLEASE START LOW CARB/SUGAR DIET, IF YOU WOULD LIKE TO SEE A SALT REFINER, PLEASE CALL US AND I WILL PLACE THE ORDER FOR YOU. THANKS HEMOGLOBIN A1C - Gives us information about your diabetes (sugar or glucose) control over the past 3 months. Your target is to keep your A1C below 0 %. HGA1C 4.7 % 05/13/2022 10:35 These readings are within normal limits. CBC - A complete blood count (CBC) gives important information about the kinds and numbers of cells in the blood, especially red blood cells, white blood cells, and platelets. HGB 14.7 g/dL 05/15/2023 10:45 HEMATOCRIT 43.7 % (05/15/23 10:45) PLT 250 10*3/uL 05/15/2023 10:45 WHITE BLOOD COUNT 3.9 10*3/uL (05/15/23 10:45) These readings are within normal limits. CHEM 7 - This is important information about the current status of your kidneys, liver, and electrolyte and acid/base balance as well as of your blood sugar and blood proteins. SODIUM 139 mEq/L 05/15/2023 10:45 POTASSIUM 3.6 mEq/L 05/15/2023 10:45 CHLORIDE 104 mEq/L 05/15/2023 10:45 UREA NITROGEN 14.6 mg/dL 05/15/2023 10:45 CREATININE 1.01 mg/dL 05/15/2023 10:45 CALCIUM 9.6 mg/dL 05/15/2023 10:45 CARBON DIOXIDE 25 mEq/L 05/15/2023 10:45 GLUCOSE 125 H mg/dL 05/15/2023 10:45 EGFR (CKD-EPI 2020) 99.5 05/15/2023 10:45 These readings are within normal limits. THE BLOOD SUGAR IS A LITTLE ELEVATED BUT THERE IS NO SIGN OF DIABETES AT THIS TIME. WE WILL CONTINUE TO MONITOR ANNUALLY LIVER FUNCTION PANEL - These are tests for liver function: PROTEIN 7.8 g/dL 05/15/2023 10:45 ALBUMIN 4.6 g/dL 05/15/2023 10:45 TOTAL BILIRUBIN 0.6 mg/dL 05/15/2023 10:45 ALKALINE PHOSPHATASE 42 U/L 05/15/2023 10:45 AST/SGOT 33 U/L 05/15/2023 10:45 ALT/SGPT 53 H U/L 05/15/2023 10:45 These readings are within normal limits. VITAMIN D - Helps promote the proper utilization of calcium and phosphorus, thereby producing proper bone maintenance. VITAMIN D, 25-HYDROXY 47.6 ng/mL 05/15/2023 10:45 These readings are within normal limits. FUTURE APPOINTMENTS: 11/13/2023 15:00 STL-V15 [facility]CT 02 PA Sincerely, MD PHYSICIAN JESUS CAROLINA RUDY MAJOR CALHOUN, ARIS J [facility] May 15, 2023 10:07 AM PRIMARY CARE NOTE: LOCAL TITLE: PRIMARY CARE PROVIDER ESTABLISHED VISIT ST STANDARD TITLE: PRIMARY CARE NOTE DATE OF NOTE: MAY 15, 2023@10:07 ENTRY DATE: MAY 15, 2023@10:07:52 AUTHOR: FRANKLIN LOCK EXP COSIGNER: URGENCY: STATUS: COMPLETED Visit conducted by synchronous video telehealth; patient verbal consent obtained. Location and emergency point of contact and/or number confirmed was notified of right to decline Telehealth services and eligibility for other options. consented to be seen via Video into the Clinic (CVT). Verified Patient's location and contact information for this appointment: [address] [phone] x A survey of the environment was conducted and all participants identified in the room and the exam door is closed. Providers: Take measures to minimize the noise outside the clinic room by ensuring the room's door is closed, and a sign is posted on the door to indicate a telehealth visit is in session. [facility] This is a 33 yo WHITE, MALE here for a general check up and has the following concerns: 33yo male in for his Adult Physical. He sees a private Scale Clerk for Immunotherapy but no PCP. He is doing well, denies any major injury or illness since his last visit. 1) Ghmptga-6-etnwseosn dehydrogenase deficiency anemia 2) Benign essential hypertension 3) Chronic thoracic back pain 4) Allergic rhinitis 5) Migraine without aura ROS: No fever, chills, unintentional weight loss or gain, diploplia or scotomota or other visual changes, CP, cough, SOB, KAN,ALEX, N/V/ diarrhea or other bowel changes, no abdominal pain, increased flatulence, nocturia, dysuria, hematuria, urgency/hesitancy, skin lesions or changing moles Active Outpatient Medications (including Supplies): Active Outpatient Medications Status 1) CETIRIZINE HCL 10MG TAB TAKE ONE TABLET BY MOUTH ONCE ACTIVE A DAY FOR ALLERGY SYMPTOMS. 2) SUMATRIPTAN SUCCINATE 25MG TAB TAKE ONE TABLET BY ACTIVE MOUTH ONE-TIME FOR MIGRAINE HEADACHE TAKE AT ONSET OF HEADACHE. MAY REPEAT AFTER 2 HOURS. NOT TO EXCEED 2 TABLETS IN 24 HOURS. Social History: Employment: ETOH: social Tobacco: denies Illicits: denies Caffeine: Activity Level: Family History: Mother: Anemia, HTN Father: in 30's due to cancer Siblings: pat uncle- cancer History: Service Connection: Service Connected: Yes (90%) HCM: Colonoscopy: AAA Screening: IMMUNIZATIONS ADMINISTERED Immunization Series Date Facility Reaction Info COVID-19 (PFIZER), MRNA, LNP-S, * 3 12/30/2020 [facility]* COVID-19 (eReplicant), MRNA, LNP-S, * 2 06/09/2020 [facility]* COVID-19 (eReplicant), MRNA, LNP-S, * 1 05/18/2020 [facility]* INFLUENZA, INJECTABLE, QUADRIVAL* 01/13/2021 No Site TDAP 05/13/2022 [facility]* CONTRAINDICATED No data available REFUSED ======= Immunization Date Facility Info COVID-19 (MODERNA), MRNA, LNP-S,* 05/13/2022 [facility]* <I> COVID-19 (eReplicant), MRNA, LNP-S, * 05/15/2023 [facility]* <I> INFLUENZA, UNSPECIFIED FORMULATI* 05/15/2023 [facility]* <I> <I> See the Detailed Immunizations Health Summary Component[DIM] for Additional Information * Value is truncated; see the Detailed Immunizations Health Summary Component [DIM] for complete text Influenza: TD: Pneumo: Zoster: OBJECTIVE: Vitals: Pulse:88 (05/15/2023 09:53) Respirations:20 (05/15/2023 09:53), 97% (05/15/2023 09:53) Height:72 in [182.9 cm] (01/13/2021 15:16), Weight:286.3 lb [129.86 kg] (05/15/2023 09:53), BMI:38.9 Blood Pressure:142/74 (05/15/2023 09:53) GA: WDWN, NAD LIMITED EXAM USING CLEARSTETH Lungs: CTA Bilat CV: rrr no appreciable murmur Abdomen: flat, non tender, non distended, active Bowel Tones X 4 Assessment/Plan: Adult Physical - order screening labs - order HM per age HTN - stable, he monitors at home - refill Lisinopril/NCTZ and Amlodipine - order labs Allergic Rhinitis - currently on Immunotherapy - refill Cetirizine and Flonase Migraine ALEX w/ aura - reports infrequent episodes - continus Imitrex as needed Obesity - current BMI 38 - declines nutrition consult Follow Up: RTC in 6 MOS, sooner PRN MEDICATION RECONCILIATION I have reviewed current medications w/ [facility] at this visit. Medication list and allergy list has been updated. Efficacy and side effects of the medications were reviewed and the [facility] was provided a current medication list. denies questions, concerns, or problems with medications unless addressed in progress notes above. Hepatitis C Testing: Patient declines HCV lab test. HIV Screening (Routine): Patient has been offered HIV testing and has declined. I have explained that HIV testing is recommended for all adults, even if all risk factors are absent. /jenna/ FRANKLIN LOCK MD PHYSICIAN Signed: 05/15/2023 10:[address] [facility] May 15, 2023 09:57 AM NURSING NOTE: LOCAL TITLE: V15 PACT FACE TO FACE NOTE STL STANDARD TITLE: NURSING NOTE DATE OF NOTE: MAY 15, 2023@09:57 ENTRY DATE: MAY 15, 2023@09:57:41 AUTHOR: QUINCY NICHOLS EXP COSIGNER: URGENCY: STATUS: COMPLETED Provider Visit: Patient Identifiers : Full Name Date of Reason for visit: Established Follow-Up Mode of Arrival: Ambulatory Allergy Review: Patient has answered NKA Allergy list reviewed and remains current. Recent Vital Signs: Temperature: 98.7 F [37.1 C] (05/15/2023 09:53) Pulse: 88 (05/15/2023 09:53) Respiration: 20 (05/15/2023 09:53) B/P: 142/74 (05/15/2023 09:53) Pain: 2 (05/15/2023 09:53) Wt: 286.3 lb [129.86 kg] (05/15/2023 09:53) Ht: 72 in [182.9 cm] (01/13/2021 15:16) BMI: 38.9 POX: 97% (05/15/2023 09:53) Would you like to discuss any personal problem, family problem, alcohol use, drug use, or a mental or emotional illness? No [facility] ([facility]), please select appointment type: Face to face: Yes- Done Contact provided Primary Care phone number and encouraged to call if any questions or concerns. Review that after hours nurse line [phone] and emergency room are available 26/09 for patient use. Contact verbalized good understanding. No notification required for this note. Suicide Screen: C-SSRS Screening Baker-Suicide Severity Rating Scale (C-SSRS Screener) 1. Over the past month, have you wished you were or wished you could go to sleep and not wake up? No 2. Over the past month, have you had any actual thoughts of killing yourself? No 3. Over the past month, have you been thinking about how you might do this? Response not required due to responses to other questions. 4. Over the past month, have you had these thoughts and had some intention of acting on them? Response not required due to responses to other questions. 5. Over the past month, have you started to work out or worked out the details of how to kill yourself? Response not required due to responses to other questions. 6. If yes, at any time in the past month did you intend to carry out this plan? Response not required due to responses to other questions. 7. In your lifetime, have you ever done anything, started to do anything, or prepared to do anything to end your life (for example, collected pills, obtained a gun, gave away valuables, went to the roof but didn't jump)? No 8. If YES, was this within the past 3 months? Response not required due to responses to other questions. Alcohol Use Screen (AUDIT-C): Alcohol Screen: SCREEN FOR ALCOHOL (AUDIT-C) An alcohol screening test (AUDIT-C) was negative (score=1). 1. How often did you have a drink containing alcohol in the past year? Consider a drink to be a 12 ounce can or bottle of regular beer, 8 ounces of malt liquor, a 5 ounce glass of table wine, or a 1.5 ounce shot of liquor (like scotch, gin, or vodka). Monthly or less 2. How many drinks containing alcohol did you have on a typical day when you were drinking in the past year? One or two drinks 3. How often did you have six or more drinks on one occasion in the past year? Never Depression Screening: Perform PHQ-2 A PHQ-2 screen was performed. The score was 0 which is a negative screen for depression. Over the past two weeks, how often have you been bothered by the following problems? 1. Little interest or pleasure in doing things Not at all 2. Feeling down, depressed, or hopeless Not at all Homelessness/Food Insecurity Screen: In the past 2 months, have you been living in stable housing that you own, rent, or stay in as part of a household? Yes - Living in stable housing. Are you worried or concerned that in the next 2 months you may NOT have stable housing that you own, rent, or stay in as part of a household? No - Not worried about housing near future The [facility] reports the following: Within the past 12 months, you worried whether your food would run out before you got money to buy more. Never true Within the past 12 months, the food you bought just didn't last and you didn't have money to get more. Never true COVID-19 Immunization: Refused Pfizer Monovalent COVID-19 vaccine Immunization: COVID-19 (PFIZER), MRNA, LNP-S, PF, ALISON-SUCROSE, 30 MCG/0.3 ML (AGES 12+ YEARS) Refusal Reason: PATIENT DECISION Patient refuses all immunization(s) in the COVID-19 group Date Documented: 05/15/23 10:04 Influenza Immunization: The patient declines to receive the recommended dose of seasonal influenza vaccine. Immunization: INFLUENZA, UNSPECIFIED FORMULATION Refusal Reason: PATIENT DECISION Patient refuses all immunization(s) in the FLU group Date Documented: 05/15/23 10:05 [facility] Weight Loss Program Offer: * Veterans interested in enrolling in the program can do so without a referral. Encourage Veterans to please call to schedule an appointment. Tobacco Use Screening: The patient has never used tobacco. Sexual Orientation: The patient thinks of their sexual orientation as: Straight or Heterosexual /es/ QUINCY NICHOLS RN, MSN REGISTERED NURSE Signed: 05/15/2023 10:[address] [facility]
--- OUTSIDE RECORDS SUMMARY | 2024-04-16 20:04 | XMS_ITS | Encounter Summary ---
Author Name [place] Organization [place] Address [address] [place] [address] Care Team Providers Care Cutting Machine Offbearer Name Role Phone AKBAR GRECO Primary Care [...] Huang's Name Patient's Relationship to Policy Huang [facility] SELEC T WNR Oct 03, 2018 [facility] [id number] KANWAL LEE PATIENT [facility] 2018 PRIME Oct 01, 2018 PRIME [id number] KANWAL LEE PATIENT FOR LIFE [facility] Aug 14, 2012 [id number] KANWAL LEE PATIENT [facility] Jan 04, 2014 [facility] [id number] [phone] LEEKANWAL PATIENT Selected Encounter This section includes the information on record at [place] for the Encounter. Date/Time Encounter Type Encounter Description Reason Pro vider Source Apr 15, 2024 08:39 AM Outpatient Encounter ADMIN PAT ACTIVTIES (MASNONCT) IHE Encounter Template Text not used by [place] Plan of Treatment: Future Appointments (+ 6 months) and Future Tests (+/- 45 days) The Plan of Treatment section includes future care activities for the patient from all [place] treatmentfacilities. This section includes future appointments and future orders which are active, pending or scheduled. Future Appointments This section includes appointments that were scheduled to occur 6 months from the date of the Encounter, up to a maximum of 20 appointments. The data comes from all [place] treatment facilities. Appointment Date/Time Appointment Type Appointme nt Facility Name Sep 18, 2024 01:30 PM AMBULATORY - NONE [facility] Encounter Notes: All associated encounter notes This section contains the clinical notes associated to the Encounter. Date/Time Encounter Note(s) Provider Source Apr 15, 2024 08:39 AM ADMINISTRATIVE NOT E: LOCAL TITLE: CONTACT NOTE STL STANDARD TITLE: ADMINISTRATIVE NOTE DATE OF NOTE: APR 15, 2024@08:39 ENTRY DATE: APR 15, 2024@08:39:43 AUTHOR: SAI LEGER EXP COSIGNER: URGENCY: STATUS: COMPLETED Veterans name and last 4 were used to verify identity Verified Veterans telephone #/Updated telephone number in the system REASON FOR CALL: Other: Reason for call: PT CX APPT RTC RTC D/C /es/ SAI LEGER ASSEMBLER TRIM Signed: 04/15/2024 08:40 SAI LEGER [facility]
--- NOTE | 2024-04-16 21:48 | ED_ITS ---
HPI - Extremity Problem General Chief complaint: Extremity Problem,Nontraumatic Stated complaint: R thigh pain Time Seen by Provider: 04/16/24 21:24 History of Present Illness HPI Narrative: 34-year-old otherwise healthy male presenting to the emergency depart with sudden-onset right thigh pain. Patient states that progressively worsened since 4:00 p.m.. Denies any injury or strain. Concerned about potential blood clot, no history of blood clots, no history of any anticoagulant use. History of hypertension. Denies any falls or trauma. No calf asymmetry, no muscle spasms sensation. Was otherwise in his normal state of health. Related Data Home Medications ?Medication ?Instructions ?Recorded ?Confirmed ?Last Taken ?Type lisinopril 20 1 tablet PO DAILY 04/16/19 04/16/19 Unknown History mg-hydrochlorothiazide 12.5 mg tablet Allergies Allergy/AdvReac Type Severity Reaction Status Date / Time No Known Allergies Allergy Verified 04/16/24 20:05 Review of Systems Review of Systems: As reviewed above in [facility] Social History Social History Gender identity (if verbalized by the patient): Male Exam Narrative: GENERAL: [Well-appearing, well-nourished, and in no acute distress.] HEAD: [Normocephalic, atraumatic.] EYES: [PERRLA and EOMI.] ENT: Nares clear, no rhinorrhea or epistaxis. Mucous membranes moist. NECK: Supple. CHEST: [Clear to auscultation. No respiratory distress.] HEART: [Regular rate and rhythm]. No murmur heard. [Normal peripheral pulses.] ABDOMEN: [Soft, nondistended], [nontender], [No rigidity or guarding] EXTREMITIES: Normal range of motion. [No edema.] Normal strength and sensation able to flex and extend at the hip, knee and ankle joint with symmetric 5/5 strength. No asymmetry or masses palpable in the thigh or popliteal fossa. Knee joint with no instability. SKIN: Warm, dry, no rash. NEURO: [No focal deficits]. Alert and oriented [x3.] PSYCH: [Normal mood and affect.] Course Vital Signs Vital signs: Vital Signs Temperature 36.1 C L 04/16/24 20:02 Pulse Rate 83 04/16/24 20:02 Respiratory Rate 15 04/16/24 20:02 Blood Pressure 166/95 H 04/16/24 20:02 Pulse Oximetry 100 04/16/24 20:02 Oxygen Delivery Room Air 04/16/24 20:02 Temperature 36.1 C L 04/16/24 20:02 Pulse Rate 83 04/16/24 20:02 Respiratory Rate 15 04/16/24 20:02 Blood Pressure 166/95 H 04/16/24 20:02 Pulse Oximetry 100 04/16/24 20:02 Oxygen Delivery Room Air 04/16/24 20:02 MDM - Extremity (Nontraumatic) MDM Narrative Medical decision making narrative: 34-year-old otherwise healthy male presenting for right-sided thigh pain, onset 4:00 p.m. without any traumatic injury. He has no calf asymmetry, full strength and sensation in the bilateral lower extremities. No evidence of a DVT. No history of any blood clots. Was otherwise in his normal state of health and denies any trauma. He is otherwise well-appearing, DVT ultrasound was ordered and negative for any acute blood clots. Likely has musculoskeletal strain or sprain of his quadriceps muscle area. No instability in the leg and he is able to ambulate. Will provide him Toradol here in symptom with a short course and instructed him to follow up with his regular doctor or return if he has any new or worsening concerns. Patient is safe for discharge. Discharge Plan Discharge Clinical Impression: Pain in right thigh, No deep vein thrombosis (DVT) Patient Disposition: Home, Self-Care Condition: Stable Instructions: Antibiotic Form Additional Instructions: Your DVT ultrasound was negative, no blood clot or any concerns. Likely have a small musculoskeletal strain/sprain or possibly even a tear although very unlikely given no injury. We will send you home with some pain control medications, follow-up with regular doctor outpatient. Patient Language: Italian Prescriptions: New ketorolac 10 mg tablet 10 mg PO Q8H PRN (Reason: pain) 5 Days Qty: 20 0RF Rx Instructions: maximum total duration of 5 days from all oral, intranasal, or parenteral formulations No Action codeine-guaifenesin [Virtussin AC] 10-100 mg/5 mL liquid 5 ml PO Q6H PRN (Reason: cough) Qty: 120 0RF methylprednisolone [Medrol (Dick)] 4 mg tablets,dose pack See Rx Instructions .ROUTE .COMPLEX Qty: 21 0RF Rx Instructions: orally per package directions ipratropium bromide 0.03 % spray,non-aerosol 2 spray NASAL TID PRN (Reason: nasal drainage) Qty: 30 0RF Rx Instructions: administer into each nostril lisinopril-hydrochlorothiazide 20-12.5 mg Tablet 1 tablet PO DAILY cyclobenzaprine 10 mg tablet 10 mg PO HS PRN (Reason: muscle spasm) Qty: 10 0RF Follow-up/Referrals: [facility] [Primary Care Provider] - Time of Disposition: 21:47
--- OUTSIDE RECORDS SUMMARY | 2024-04-16 21:57 | XMS_ITS | Clinical Summary ---
Author Organization [facility] Address [address] [place] [address] Care Team Providers Care Vp Of Digital Marketing Name Role Phone Unavailable Primary Care Provider Unavailabl e Source Comments [facility],non-owned Affiliates and Associated Physician Practices is amultiple site organization consisting of ambulatory clinics and hospital sitesin [place], [place], [place] and [place]. This disclosure is being madepursuant to the Care Everywhere program and may not contain all information available regarding this patient. Last updated 17.[facility] Health Encounters Date Type Department Care Team Description 03/13/2024 8:40 AM GORING CUTTER - 03/13/2024 11:59 PM GORING CUTTER Hospital Encounter [facility] DIAGNOSTIC RAD OP [address] [place] [address] Channing Chiu, Discharge Disposition: Home or Self [...] topic MENINGOCOCCAL VACCINE Aged Out No nicole hein eligible based on patient's age to complete this topic PNEUMOCOCCAL VACCINE Aged Out No long er eligible based on patient's age to complete this topic Procedures Procedure Name Priority Date/Time Associated Diagnosis Comments XR SHOULDER LEFT 2VW OR MORE Routine 03/13/2024 8:52 AM GORING CUTTER Arthritis, allergic from Last 3 Months Results * XR Shoulder Left 2Vw or More (03/13/2024 8:52 AM GORING CUTTER) Anatomical Region Laterality Modality Upper Extremity Digital Radiogra phy 03/13/2024 9:10 AM GORING CUTTER Impressions 03/13/2024 9:32 AM GORING CUTTER IMPRESSION: No arthritis. Report dictated by Jeri Healy MD (vice president investor relations). I, Josh Díaz MD have personally reviewed and interpreted this examination/study. > Interpreting Provider: Josh Díaz MD on 03/13/2024 9:32 AM Narrative 03/13/2024 9:32 AM GORING CUTTER PROCEDURE: XR SHOULDER LEFT 2VW OR MORE [...] dictated by Jeri Healy MD (vice president investor relations). I, Josh Díaz MD have personally reviewed and interpreted this examination/study. > Interpreting Provider: Josh Díaz MD on 03/13/2024 9:32 AM Channing Chiu DO DIAGNOSTIC I MAGING ORDERABLES from Last 3 Months Narciso Al Personal/Family Self 1990
--- OUTSIDE RECORDS SUMMARY | 2024-04-16 21:57 | XMS_ITS | Referral Summary ---
Author Organization [facility] Address [address] [facility] [place] [address] Care Team Providers Care Gas Station Manager Name Role Phone Unavailable Primary Care Provider Unavailabl e Source Comments [facility],non-owned Affiliates and Associated Physician Practices is amultiple site organization consisting of ambulatory clinics and hospital sitesin [place], [place], [place] and [place]. This disclosure is being madepursuant to the Care Everywhere program and may not contain all information available regarding this patient. Last updated 17.[facility] Encounters Date Type Department Care Team Description 03/13/2024 8:40 AM CATTLE INSPECTOR - 03/13/2024 11:59 PM CATTLE INSPECTOR Hospital Encounter [facility] DIAGNOSTIC RAD OP [address] [place] [address] Channing Chiu, Discharge Disposition: Home or Self [...] 2VW OR MORE Routine 03/13/2024 8:52 AM CATTLE INSPECTOR Arthritis, allergic from Last 3 Months Results * XR Shoulder Left 2Vw or More (03/13/2024 8:52 AM CATTLE INSPECTOR) Anatomical Region Laterality Modality Upper Extremity Digital Radiogra phy 03/13/2024 9:10 AM CATTLE INSPECTOR Impressions 03/13/2024 9:32 AM CATTLE INSPECTOR IMPRESSION: No arthritis. Report dictated by Jeri Healy MD (president). Josh White MD have personally reviewed and interpreted this examination/study. > Interpreting Provider: Josh Díaz MD on 03/13/2024 9:32 AM Narrative 03/13/2024 9:32 AM CATTLE INSPECTOR PROCEDURE: XR SHOULDER LEFT 2VW OR [...] arthritis. Report dictated by Jeri Healy MD (president). Josh White MD have personally reviewed and interpreted this examination/study. > Interpreting Provider: Josh Díaz MD on 03/13/2024 9:32 AM Channing Chiu DO DIAGNOSTIC I MAGING ORDERABLES from Last 3 Months Narciso Al Personal/Family Self 1990
--- OUTSIDE RECORDS SUMMARY | 2024-04-16 21:57 | XMS_ITS | Patient Health Summary ---
Author Organization [facility] [employer] Address [address] [place] [address] Care Team Providers Care Qa Reviewer Name Role Phone Unavailable Primary Care Provider Unavailabl e Note from [facility] [employer] [facility],non-owned Affiliates and Associated Physician Practices is amultiple site organization consisting of ambulatory clinics and hospital sitesin [place], [place], [place] and [place]. This disclosure is being madepursuant to the Care Everywhere program and may not contain all information available regarding this patient. Last updated 17.[facility] [employer] Social History Tobacco Use Types Packs/Day Years Used Date Smoking Tobacco: Never Assessed Sex and Gender Information Value Date Recorded Sex Assigned at Not on file Gender Identity Not on file Sexual Orientation Not on file Procedures * XR SHOULDER LEFT 2VW OR MORE(Performed 03/13/2024) Performed for Arthritis, allergic Results * XR Shoulder Left 2Vw or More (03/13/2024 8:52 AM SKILLS INSTRUCTOR) Anatomical Region Laterality Modality Upper Extremity Digital Radiogra phy 03/13/2024 9:10 AM SKILLS INSTRUCTOR Impressions 03/13/2024 9:32 AM SKILLS INSTRUCTOR IMPRESSION: No arthritis. Report dictated by Jeri Healy MD (residential care officer). I, Josh Díaz MD have personally reviewed and interpreted this examination/study. > Interpreting Provider: Josh Díaz MD on 03/13/2024 9:32 AM Narrative 03/13/2024 9:32 AM SKILLS INSTRUCTOR PROCEDURE: XR SHOULDER LEFT 2VW OR MORE [...] arthritis. Report dictated by Jeri Healy MD (residential care officer). I, Josh Díaz MD have personally reviewed and interpreted this examination/study. > Interpreting Provider: Josh Díaz MD on 03/13/2024 9:32 AM Channing Chiu DO DIAGNOSTIC I MAGING ORDERABLES
--- OUTSIDE RECORDS SUMMARY | 2024-04-16 21:57 | XMS_ITS | Clinical Summary ---
Author Organization [facility] Care Team Providers Care Inspector Assemblies And Installations Name Role Phone Unavailable Primary Care Provider Unavailabl e Social History Tobacco Use Types Packs/Day Years Used Date Smoking Tobacco: Never Assessed Sex and Gender Information Value Date Recorded Sex Assigned at Not on file Legal Sex Male 1:51 PM MANGLE TENDER CLOTH Gender Identity Not on file Sexual Orientation [...]
--- OUTSIDE RECORDS SUMMARY | 2024-04-16 21:57 | XMS_ITS | Encounter Summary ---
Author Organization [facility] Address [facility] [place] [address] Care Team Providers Care Risk Control Specialist Name Role Phone Aleksandra Dorado NP Primary Care Provider [phone] Encounter Details Date Type Department Care Team (Late st Contact Info) Description 02/24/2022 Spoke Message Enc [facility] Family [facility] - [place] [address] [place], [place] [address] Aleksandra Dorado NP [address] [place], [place] [address] Blood pressure check Social History Tobacco Use [...] on filedocumented in this encounter Care Teams Risk Control Specialist Relationship Specialty Start Date End Date Aleksandra Dorado NP [address] [place], [place] [id number] PCP - General NURSE PRACTITIONER 12/21/21 documented as of this encounter
--- OUTSIDE RECORDS SUMMARY | 2024-04-16 21:57 | XMS_ITS | Continuity of Care Document ---
Author Name [facility] Organization [facility] Care Team Providers Care Primer Assembler Name Role Phone [facility] Unavailable Unavailable Problems Combined list of problems from Department of Defense and Veterans Affairs facilities. It does not include entries that were removed or entered in error. Problem Status Onset Date Problem Type Date of Resolution Comments Source EXAM, FORMAL OCCUPATIONAL HEALTH PROGRAM INCLUDING HEARING CONSERVATION PROGRAM, PERIODIC FOR CONTINUED SURVEILLANCE FOR OCCUPATIONAL WORKPLACE EXPOSURE Active 08/16/19 17 Condition [facility] EXAM, OCCUPATIONAL, AVIATION, LONG Active 02/22/20 16 Condition [facility] Essential (primary) hypertension Active 02/22/20 16 Condition [facility] Allergic rhinitis Active Condition [facility] Benign essential hypertension Active Condition [facility] Chronic sinusitis Active Condition [facility] Chronic thoracic back pain Active Condition [facility] 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 [facility] Essential hypertension Active Condition [facility] 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 MERCER TO ASSIST W/ COORDINATION OF RECORDS TO BE SENT TO [facility] FOR PLACEMENT INTO PT RECORD WELL REVIEW. [...] ICD-10-CM I10 Essential (primary) hypertension Active Diagnosis [facility] Diagnosis: ICD-10-CM Z00.01 Encounter for general adult medical exam w abnormal findings Active Diagnosis [facility] Medications Combined list of outpatient medications [...] DAY FOR HIGH BLOOD PRESSURE Active 05/15/2024 [id number] FRANKLIN LOCK 2023 90 [facility] AMLODIPINE BESYLATE 2.5MG TAB TAKE ONE TABLET BY MOUTH ONCE A DAY FOR HIGH BLOOD PRESSURE ORAL DISCONT INUED BY PROVIDE R 05/15/2024 [id number] 4 John LOCK [address] [place] [address] [facility] AMOXICILLIN TRIHYDRATE 250MG CAP TAKE 2 CAPSULES BY MOUTH THREE TIMES A DAY ORAL ACTIVE Robert LOPEZ 2009 [facility] CETIRIZINE (U/D) 10 MG ORAL TAB TAKE ONE TABLET BY MOUTH ONCE A DAY FOR ALLERGY SYMPTOMS . Active 05/15/2024 [id number] FRANKLIN LOCK 2023 90 [facility] CETIRIZINE HCL 10MG TAB TAKE ONE TABLET BY MOUTH ONCE A DAY FOR ALLERGY SYMPTOMS . ORAL ACTIVE 05/15/2024 [id number] 4 John LOCK [address] [place] [address] [facility] EPINEPHRINE (epinephrin e), 0.3MG/0.3, AUTO INJCT, INJECTION, [facility], 2 ea. SYRINGE Active [id number] 2023 2 Pharmac y Data Transac tion Service Facilit y EPINEPHRINE (epinephrin e), 0.3MG/0.3, AUTO INJCT, INJECTION, TEVA [facility], 2 ea. SYRINGE Cancele d [id number] 4 [id number] : 2023 0 Pharmac y Data Trans[facility] tion Service Facilit y EPINEPHRINE (epinephrin e), 0.3MG/0.3, AUTO INJCT, INJECTION, TEVA [place], 2 ea. SYRINGE Cancele d [id number] : 2023 0 Pharmac y Data Transac tion Service Facilit y FLONASE-OTC (BRAND) 50 MCG ANNIE SPSN [9.9] INSTILL 2 SPRAYS IN NOSTRIL( S) ONCE A DAY (MUST BE USED DIRECTED FOR MINIMUM OF 21 DAYS TO PROVIDE ADEQUATE BENEFITS ) Active 05/15/2024 [id number] 4 FRANKLIN LOCK 2023 3 [facility] FLUTICASONE PROPIONATE 50MCG/SPRAY SOLN,NASAL, 16GM INSTILL 2 SPRAYS IN NOSTRIL( S) ONCE A DAY (MUST BE USED DIRECTED FOR MINIMUM OF 21 DAYS TO PROVIDE ADEQUATE BENEFITS ) NASAL ACTIVE 05/15/2024 [id number] 4 John LOCK 2023 3 [facility] HYDROCHLORO THIAZIDE 25MG/LISINO PRIL 20MG TAB TAKE 1 TABLET BY MOUTH EVERY MORNING ORAL ACTIVE 05/15/2024 [id number] 4 John LOCK J 2023 90 [facility] LISINOPRIL/ HCTZ 20 MG-25 MG ORAL TAB TAKE 1 TABLET BY MOUTH EVERY MORNING Active 05/15/2024 [id number] FRANKLIN LOCK 2023 90 [facility] LISINOPRIL/ HCTZ 20 MG-25 MG ORAL TAB TAKE 1 TABLET BY MOUTH EVERY MORNING Active 05/15/2024 [id number] FRANKLIN LOCK 2023 90 [facility] PROPRANOLOL HCL 40MG TAB TAKE ONE-HALF TABLET BY MOUTH TWICE A DAY ORAL ACTIVE 03/21/2025 [id number] 5 ROBBIE JENNINGS 2024 90 [facility] SUMAtriptan (U/D) 25 MG ORAL TAB TAKE ONE TABLET BY MOUTH ONE-TIME FOR MIGRAINE HEADACHE TAKE AT ONSET OF HEADACHE . MAY REPEAT AFTER 2 HOURS. NOT TO EXCEED 2 TABLETS IN 24 HOURS. 03/15/2024 [id number] 4 FRANKLIN LOCK 2023 9 [facility] juni SUMAtriptan (U/D) 25 MG ORAL TAB TAKE ONE TABLET BY MOUTH ONE-TIME FOR MIGRAINE HEADACHE TAKE AT ONSET OF HEADACHE . MAY REPEAT AFTER 2 HOURS. NOT TO EXCEED 2 TABLETS IN 24 HOURS. 03/15/2024 [id number] 4 FRANKLIN LOCK 2023 9 [facility] SUMATRIPTAN SUCCINATE 25MG TAB TAKE ONE TABLET BY MOUTH ONE-TIME TAKE AT ONSET OF HEADACHE . MAY REPEAT AFTER 2 HOURS. NOT TO EXCEED 2 TABLETS IN 24 HOURS. ORAL ACTIVE 03/21/2025 [id number] 5 ROBBIE JENNINGS NOD K 2024 9 [facility] SUMATRIPTAN SUCCINATE 25MG TAB TAKE ONE TABLET BY MOUTH ONE-TIME FOR MIGRAINE HEADACHE TAKE AT ONSET OF HEADACHE . MAY REPEAT AFTER 2 HOURS. NOT TO EXCEED 2 TABLETS IN 24 HOURS. ORAL DISCONT INUED BY PROVIDE R 03/15/2024 [id number] 4 John LOCK RIS J 2023 9 [facility] Allergies, Adverse Reactions, Alerts Combined list of allergies from Department of Defense and Veterans Affairs facilities. It does not include entries that were removed or entered in error. Substance Category Reaction Severity Reaction type Status Date Reported Comments Source No Known Allergies Drug allergy (disorder) active 9 [place], [place] [facility] Propensity to adverse reactions to drug (finding) active 6 [facility] Immunizations Combined list of available immunizations from the Department of Defense and Veterans Affairs facilities. Immunization Series Date Given Administered By Site Reaction Lot Number CVX Code Drug Master Barber Status Comments Source INFLUENZA, UNSPECIFIED FORMULATION 2023 88 complet ed [facility] TDAP 2022 JOSE A MCNEIL RIGHT DELTO ID [id number] 115 complet ed [facility] INFLUENZA, INJECTABLE, QUADRIVALENT, PRESERVATIVE FREE 2020 150 complet ed [facility] COVID-19 (PFIZER), MRNA, LNP-S, PF, 30 MCG/0.3 ML DOSE 3 2020 208 complet ed [facility] COVID-19 (PFIZER), MRNA, LNP-S, PF, 30 MCG/0.3 ML DOSE 2 2020 208 complet ed [facility] COVID-19 (PFIZER), MRNA, LNP-S, PF, 30 MCG/0.3 ML DOSE 1 2020 208 complet ed [facility] INFLUENZA, UNSPECIFIED FORMULATION 2016 88 complet ed [place] PNEUMOCOCCAL POLYSACCHARID E PPV23 2016 33 complet ed [place] TDAP 2015 115 complet ed [place] INFLUENZA (HISTORICAL) 2015 88 complet ed [facility] influenza virus vaccine, live, attenuated, for intranasal use 1 2007 [facility] Emanuel [id number] [employer] (MED) complet ed influenza virus vaccine, live, [...] Vi capsular polysaccharid e vaccine 1 2006 [id number] Sanofi Pasteur (PMC) complet ed typhoid Vi capsular polysacch aride vaccine DoD measles, mumps and rubella virus vaccine 1 2005 [id number] Merck (MSD) complet ed measles, mumps and rubella virus vaccine DoD poliovirus vaccine, inactivated 1 2005 [id number] Sanofi Pasteur (PMC) complet ed polioviru [...] diphtheria toxoid conjugate vaccine (MCV4P) 1 2005 [id number] 114 Sanofi Pasteur (PMC) complet ed meningoco ccal polysacch aride (groups A, C, Y and W-135) diphtheri a toxoid conjugate vaccine (MCV4P) DoD tetanus toxoid, reduced diphtheria toxoid, and acellular pertu is vaccine, adsorbed 1 2005 [id number] 115 Sanofi Pasteur (PMC) complet ed tetanus toxoid, reduced diphtheri a toxoid, and acellular pertussis vaccine, adsorbed DoD TETANUS TOXOID, UNSPECIFIED FORMULATION 2005 112 complet ed [employer](ADULT) UNSPECIFIED FORMULATION 2005 139 complet ed [facility] Results Combined list of recent chemistry, hematology and other laboratory results from Department of Defense and Veterans Affairs, ranging from 15 months to all on record, depending upon the facility. Order Name Results Value Reference Range Date Interpretation Specimen Comments Source CBC LEUKOCYTES [#/VOLUME] IN BLOOD BY AUTOMATED COUNT 3.9 10*3/u L 3.6 - 11.2 05/14 Specimen Type: BLOOD No comment entered. Ordering Provider: FRANKLIN LOCK Report Released Date/Time: May 15, 2023 10:26 AM Reporting Lab: [facility] [address] [place] [phone] Performing Lab: [facility] [address] [place] [phone] [facility] CBC ERYTHROCYTE S [#/VOLUME] IN BLOOD BY AUTOMATED COUNT 5.06 10*6/u L 4.10 - 5.70 05/14 Specimen Type: BLOOD No comment entered. Ordering Provider: FRANKLIN LOCK Report Released Date/Time: May 15, 2023 10:26 AM Reporting Lab: [facility] [address] [address] Performing Lab: [facility] [phone] [facility] CBC HEMOGLOBIN [MASS/VOLUM E] IN BLOOD 14.7 g/dL 13.1 - 16.8 05/14 Specimen Type: BLOOD No comment entered. Ordering Provider: FRANKLIN LOCK Report Released Date/Time: May 15, 2023 10:26 AM Reporting Lab: [facility] [address] [phone] Performing Lab: [facility] [address] [address] [facility] CBC HEMATOCRIT [VOLUME FRACTION] OF BLOOD 43.7 38.2 - 48.4 05/14 Specimen Type: BLOOD No comment entered. Ordering Provider: FRANKLIN LOCK Report Released Date/Time: May 15, 2023 10:26 AM Reporting Lab: [place] [address] [address] [facility] [address] Performing Lab: [place] [address] [address] [phone] [facility] CBC MCV [ENTITIC VOLUME] BY AUTOMATED COUNT 86.4 fL 80.0 - 100.0 05/14 Specimen Type: BLOOD No comment entered. Ordering Provider: FRANKLIN LOCK Report Released Date/Time: May 15, 2023 10:26 AM Reporting Lab: [place] [address] [address] [facility] [address] Performing Lab: [place] [address] [address] [phone] [facility] CBC MCH [ENTITIC MASS] BY AUTOMATED COUNT 29.1 pg 27.0 - 34.0 05/14 Specimen Type: BLOOD No comment entered. Ordering Provider: FRANKLIN LOCK Report Released Date/Time: May 15, 2023 10:26 AM Reporting Lab: [place] [address] [address] [address] Performing Lab: [address] [address] [facility] CBC MCHC [MASS/VOLUM E] BY AUTOMATED COUNT 33.6 g/dL 33.0 - 36.0 05/14 Specimen Type: BLOOD No comment entered. Ordering Provider: FRANKLIN LOCK Report Released Date/Time: May 15, 2023 10:26 AM Reporting Lab: [address] [address] Performing Lab: [address] [address] [facility] CBC PLATELETS [#/VOLUME] IN BLOOD BY AUTOMATED COUNT 250 10*3/u L 150 - 400 05/14 Specimen Type: BLOOD No comment entered. Ordering Provider: FRANKLIN LOCK Report Released Date/Time: May 15, 2023 10:26 AM Reporting Lab: [address] [address] Performing Lab: [address] [phone] [facility] CBC PLATELET MEAN VOLUME [ENTITIC VOLUME] IN BLOOD BY AUTOMATED COUNT 10.1 fL 7.5 - 11.2 05/14 Specimen Type: BLOOD No comment entered. Ordering Provider: FRANKLIN LOCK Report Released Date/Time: May 15, 2023 10:26 AM Reporting Lab: [address] [address] Performing Lab: [address] [phone] [facility] CBC ERYTHROCYTE DISTRIBUTIO N WIDTH [RATIO] BY AUTOMATED COUNT 11.4 11.8 - 15.1 05/14 L Specimen Type: BLOOD No comment entered. Ordering Provider: FRANKLIN LOCK Report Released Date/Time: May 15, 2023 10:26 AM Reporting Lab: [address] [address] Performing Lab: [address] [phone] [place] [address] [facility] CBC LYMPHOCYTES /100 LEUKOCYTES IN BLOOD BY AUTOMATED COUNT 32 05/14 Specimen Type: BLOOD No comment entered. Ordering Provider: FRANKLIN LOCK Report Released Date/Time: May 15, 2023 10:26 AM Reporting Lab: [address] [address] Performing Lab: [address] [phone] [facility] [facility] CBC MONOCYTES/1 00 LEUKOCYTES IN BLOOD BY AUTOMATED COUNT 9 05/14 Specimen Type: BLOOD No comment entered. Ordering Provider: FRANKLIN LOCK Report Released Date/Time: May 15, 2023 10:26 AM Reporting Lab: [facility] [address] [address] Performing Lab: [facility] [address] [phone] [facility] CBC NEUTROPHILS /100 LEUKOCYTES IN BLOOD BY AUTOMATED COUNT 54 05/14 Specimen Type: BLOOD No comment entered. Ordering Provider: FRANKLIN LOCK Report Released Date/Time: May 15, 2023 10:26 AM Reporting Lab: [facility] [address] [address] Performing Lab: [facility] [address] [address] [facility] CBC EOSINOPHILS /100 LEUKOCYTES IN BLOOD BY AUTOMATED COUNT 3 05/14 Specimen Type: BLOOD No comment entered. Ordering Provider: FRANKLIN LOCK Report Released Date/Time: May 15, 2023 10:26 AM Reporting Lab: [facility] [address] [address] Performing Lab: [facility] [address] [address] [facility] CBC BASOPHILS/1 00 LEUKOCYTES IN BLOOD BY AUTOMATED COUNT 1 05/14 Specimen Type: BLOOD No comment entered. Ordering Provider: FRANKLIN LOCK Report Released Date/Time: May 15, 2023 10:26 AM Reporting Lab: [facility] [address] [address] Performing Lab: [facility] [address] [phone] [facility] [facility] CBC LYMPHOCYTES [#/VOLUME] IN BLOOD BY AUTOMATED COUNT 1.25 10*3/u L 0.77 - 4.50 05/14 Specimen Type: BLOOD No comment entered. Ordering Provider: FRANKLIN LOCK Report Released Date/Time: May 15, 2023 10:26 AM Reporting Lab: [facility] [address] [address] Performing Lab: [facility] [address] [place] [phone] [facility] CBC MONOCYTES [#/VOLUME] IN BLOOD BY AUTOMATED COUNT 0.37 10*3/u L 0.19 - 0.80 05/14 Specimen Type: BLOOD No comment entered. Ordering Provider: FRANKLIN LOCK Report Released Date/Time: May 15, 2023 10:26 AM Reporting Lab: [facility] [address] [place] [phone] Performing Lab: [address] [address] [facility] CBC NEUTROPHILS [#/VOLUME] IN BLOOD BY AUTOMATED COUNT 2.14 10*3/u L 2.10 - 8.00 05/14 Specimen Type: BLOOD No comment entered. Ordering Provider: FRANKLIN LOCK Report Released Date/Time: May 15, 2023 10:26 AM Reporting Lab: [address] [address] Performing Lab: [facility] [address] [place] [phone] [facility] CBC EOSINOPHILS [#/VOLUME] IN BLOOD BY AUTOMATED COUNT 0.13 10*3/u L 0.00 - 0.60 05/14 Specimen Type: BLOOD No comment entered. Ordering Provider: FRANKLIN LOCK Report Released Date/Time: May 15, 2023 10:26 AM Reporting Lab: [facility] [address] [place] [phone] Performing Lab: [facility] [address] [place] [phone] [facility] CBC BASOPHILS [#/VOLUME] IN BLOOD BY AUTOMATED COUNT 0.03 10*3/u L 0.00 - 0.20 05/14 Specimen Type: BLOOD No comment entered. Ordering Provider: FRANKLIN LOCK Report Released Date/Time: May 15, 2023 10:26 AM Reporting Lab: [facility] [address] [place] [phone] Performing Lab: [place] [address] [address] [phone] [facility] COMPREHENS ADINA METABOLIC PANEL CREATININE [MASS/VOLUM E] IN SERUM OR PLASMA 1.01 mg/dL 0.7 - 1.3 05/14 Specimen Type: PLASMA Comment: LDL calculation invalid when Triglyceride exceeds 250 mg/dl Ordering Provider: FRANKLIN LOCK Report Released Date/Time: May 15, 2023 10:26 AM Reporting Lab: [address] [address] Performing Lab: [address] [address] [facility] COMPREHENS [place]INA METABOLIC PANEL UREA NITROGEN [MASS/VOLUM E] IN SERUM OR PLASMA 14.6 mg/dL 9.0 - 25.0 05/14 Specimen Type: PLASMA Comment: LDL calculation invalid when Triglyceride exceeds 250 mg/dl Ordering Provider: FRANKLIN LOCK Report Released Date/Time: May 15, 2023 10:26 AM Reporting Lab: [address] [address] Performing Lab: [place] [address] [address] [facility] [address] [facility] COMPREHENS ADINA METABOLIC PANEL GLUCOSE [MASS/VOLUM E] IN SERUM OR PLASMA 125 mg/dL 72 - 99 05/14 H Specimen Type: PLASMA Comment: LDL calculation invalid when Triglyceride exceeds 250 mg/dl Ordering Provider: FRANKLIN LOCK Report Released Date/Time: May 15, 2023 10:26 AM Reporting Lab: [address] [address] Performing Lab: [address] [address] [facility] COMPREHENS [place] METABOLIC PANEL SODIUM [MOLES/VOLU ME] IN SERUM OR PLASMA 139 meq/L 136 - 145 05/14 Specimen Type: PLASMA Comment: LDL calculation invalid when Triglyceride exceeds 250 mg/dl Ordering Provider: FRANKLIN LOCK Report Released Date/Time: May 15, 2023 10:26 AM Reporting Lab: [facility] [address] [facility] [address] Performing Lab: [facility] [address] [address] [facility] COMPREHENS [place] METABOLIC PANEL POTASSIUM [MOLES/VOLU ME] IN SERUM OR PLASMA 3.6 meq/L 3.5 - 5 05/14 Specimen Type: PLASMA Comment: LDL calculation invalid when Triglyceride exceeds 250 mg/dl Ordering Provider: FRANKLIN LOCK Report Released Date/Time: May 15, 2023 10:26 AM Reporting Lab: [place] [address] [address] [facility] [address] Performing Lab: [place] [address] [address] [phone] [facility] COMPREHENS [place] METABOLIC PANEL CHLORIDE [MOLES/VOLU ME] IN SERUM OR PLASMA 104 meq/L 98 - 107 05/14 Specimen Type: PLASMA Comment: LDL calculation invalid when Triglyceride exceeds 250 mg/dl Ordering Provider: FRANKLIN LOCK Report Released Date/Time: May 15, 2023 10:26 AM Reporting Lab: [address] [address] Performing Lab: [place] [address] [address] [address] [facility] COMPREHENS [place] METABOLIC PANEL CARBON DIOXIDE, TOTAL [MOLES/VOLU ME] IN SERUM OR PLASMA 25 meq/L 22 - 31 05/14 Specimen Type: PLASMA Comment: LDL calculation invalid when Triglyceride exceeds 250 mg/dl Ordering Provider: FRANKLIN LOCK Report Released Date/Time: May 15, 2023 10:26 AM Reporting Lab: [address] [address] Performing Lab: [facility] [address] [place] [phone] [facility] COMPREHENS [place] METABOLIC PANEL CALCIUM [MASS/VOLUM E] IN SERUM OR PLASMA 9.6 mg/dL 8.4 - 10.4 05/14 Specimen Type: PLASMA Comment: LDL calculation invalid when Triglyceride exceeds 250 mg/dl Ordering Provider: FRANKLIN LOCK Report Released Date/Time: May 15, 2023 10:26 AM Reporting Lab: [place] [address] [address] [facility] [address] Performing Lab: [place] [address] [address] [phone] [facility] COMPREHENS [place] METABOLIC PANEL PROTEIN [MASS/VOLUM E] IN SERUM OR PLASMA 7.8 g/dL 6 - 8.6 05/14 Specimen Type: PLASMA Comment: LDL calculation invalid when Triglyceride exceeds 250 mg/dl Ordering Provider: FRANKLIN LOCK Report Released Date/Time: May 15, 2023 10:26 AM Reporting Lab: [place] [address] [address] [facility] [phone] Performing Lab: [place] [address] [facility] [phone] [facility] COMPREHENS [place]INA METABOLIC PANEL ALBUMIN [MASS/VOLUM E] IN SERUM OR PLASMA 4.6 g/dL 3.4 - 5 05/14 Specimen Type: PLASMA Comment: LDL calculation invalid when Triglyceride exceeds 250 mg/dl Ordering Provider: FRANKLIN LOCK Report Released Date/Time: May 15, 2023 10:26 AM Reporting Lab: [facility] [address] Performing Lab: [place] [address] [address] [address] [facility] COMPREHENS [place]INA METABOLIC PANEL BILIRUBIN.T OTAL [MASS/VOLUM E] IN SERUM OR PLASMA 0.6 mg/dL 0.2 - 1.2 05/14 Specimen Type: PLASMA Comment: LDL calculation invalid when Triglyceride exceeds 250 mg/dl Ordering Provider: FRANKLIN LOCK Report Released Date/Time: May 15, 2023 10:26 AM Reporting Lab: [facility] [address] [address] Performing Lab: [facility] [address] [place] [phone] [facility] COMPREHENS [place]INA METABOLIC PANEL ALKALINE PHOSPHATASE [ENZYMATIC ACTIVITY/VO LUME] IN SERUM OR PLASMA 42 U/L 40 - 150 05/14 Specimen Type: PLASMA Comment: LDL calculation invalid when Triglyceride exceeds 250 mg/dl Ordering Provider: FRANKLIN LOCK Report Released Date/Time: May 15, 2023 10:26 AM Reporting Lab: [address] [address] Performing Lab: [address] [address] [facility] COMPREHENS ADINA METABOLIC PANEL ASPARTATE AMINOTRANSF ERASE [ENZYMATIC ACTIVITY/VO LUME] IN SERUM OR PLASMA 33 U/L 5 - 34 05/14 Specimen Type: PLASMA Comment: LDL calculation invalid when Triglyceride exceeds 250 mg/dl Ordering Provider: FRANKLIN LOCK Report Released Date/Time: May 15, 2023 10:26 AM Reporting Lab: [address] [address] Performing Lab: [address] [address] [facility] COMPREHENS [place] METABOLIC PANEL ALANINE AMINOTRANSF ERASE [ENZYMATIC ACTIVITY/VO LUME] IN SERUM OR PLASMA 53 U/L 8 - 40 05/14 H Specimen Type: PLASMA Comment: LDL calculation invalid when Triglyceride exceeds 250 mg/dl Ordering Provider: FRANKLIN LOCK Report Released Date/Time: May 15, 2023 10:26 AM Reporting Lab: [address] [address] Performing Lab: [address] [address] [facility] COMPREHENS ADINA METABOLIC PANEL GLOMERULAR FILTRATION RATE/1.73 SQ M.PREDICTED [VOLUME RATE/AREA] IN SERUM, PLASMA OR BLOOD BY CREATININE- BASED FORMULA (CKD-EPI 2020) 99.5 60 05/14 Specimen Type: PLASMA Comment: LDL calculation invalid when Triglyceride exceeds 250 mg/dl Ordering Provider: FRANKLIN LOCK Report Released Date/Time: May 15, 2023 10:26 AM Reporting Lab: [place] [address] [address] [address] Performing Lab: [address] [address] [facility] LIPID PANEL (STL) CHOLESTEROL [MASS/VOLUM E] IN SERUM OR PLASMA 187 mg/dL 0 - 200 05/14 Specimen Type: PLASMA Comment: LDL calculation invalid when Triglyceride exceeds 250 mg/dl Ordering Provider: FRANKLIN LOCK Report Released Date/Time: May 15, 2023 10:26 AM Reporting Lab: [address] [address] Performing Lab: [place] [address] [address] [address] [facility] LIPID PANEL (STL) TRIGLYCERID E [MASS/VOLUM E] IN SERUM OR PLASMA 262 mg/dL 0 - 150 05/14 H Specimen Type: PLASMA Comment: LDL calculation invalid when Triglyceride exceeds 250 mg/dl Ordering Provider: FRANKLIN LOCK Report Released Date/Time: May 15, 2023 10:26 AM Reporting Lab: [address] [address] Performing Lab: [address] [address] [facility] LIPID PANEL (STL) CHOLESTEROL IN LDL [MASS/VOLUM E] IN SERUM OR PLASMA BY DIRECT ASSAY 121 mg/dL 100 05/14 Specimen Type: PLASMA Comment: LDL calculation invalid when Triglyceride exceeds 250 mg/dl Ordering Provider: FRANKLIN LOCK Report Released Date/Time: May 15, 2023 10:26 AM Reporting Lab: [address] [phone] Performing Lab: [address] [address] [facility] LIPID PANEL (STL) CHOLESTEROL IN LDL [MASS/VOLUM E] IN SERUM OR PLASMA BY CALCULATION commen tmg/dL 05/14 Specimen Type: PLASMA Comment: LDL calculation invalid when Triglyceride exceeds 250 mg/dl Ordering Provider: FRANKLIN LOCK Report Released Date/Time: May 15, 2023 10:26 AM Reporting Lab: [address] [address] Performing Lab: [address] [address] [facility] LIPID PANEL (STL) CHOLESTEROL IN HDL [MASS/VOLUM E] IN SERUM OR PLASMA 30 mg/dL 40 05/14 L Specimen Type: PLASMA Comment: LDL calculation invalid when Triglyceride exceeds 250 mg/dl Ordering Provider: FRANKLIN LOCK Report Released Date/Time: May 15, 2023 10:26 AM Reporting Lab: [address] [address] Performing Lab: [address] [address] [facility] MICRAL/CRE AT PROFILE (STL) ALBUMIN [MASS/VOLUM E] IN URINE <5.0mg /L 05/14 Specimen Type: URINE Comment: uALB/CREAT Ratio Unable to be calculated Unable to calculate due to Microalbumin < 5.0 mg/L Ordering Provider: FRANKLIN LOCK Report Released Date/Time: May 15, 2023 10:26 AM Reporting Lab: [address] [address] Performing Lab: [address] [address] [facility] MICRAL/CRE AT PROFILE (STL) ALBUMIN/CRE ATININE [MASS RATIO] IN URINE commen tmg/g 0 - 29 05/14 Specimen Type: URINE Comment: uALB/CREAT Ratio Unable to be calculated Unable to calculate due to Microalbumin < 5.0 mg/L Ordering Provider: FRANKLIN LOCK Report Released Date/Time: May 15, 2023 10:26 AM Reporting Lab: [address] [address] Performing Lab: [address] [phone] [facility] MICRAL/CRE AT PROFILE (STL) CREATININE [MASS/VOLUM E] IN URINE 65.3 mg/dL 63 - 166 05/14 Specimen Type: URINE Comment: uALB/CREAT Ratio Unable to be calculated Unable to calculate due to Microalbumin < 5.0 mg/L Ordering Provider: FRANKLIN LOCK Report Released Date/Time: May 15, 2023 10:26 AM Reporting Lab: [address] [address] Performing Lab: [address] [phone] [place] [address] [facility] VITAMIN D, 25-HYDROXY 25-HYDROXYV ITAMIN D3 [MASS/VOLUM E] IN SERUM OR PLASMA 47.6 ng/mL 30 - 96 05/14 Specimen Type: SERUM No comment entered. Ordering Provider: FRANKLIN LOCK Report Released Date/Time: May 15, 2023 10:26 AM Reporting Lab: [address] [address] Performing Lab: [address] [phone] [place] [address] [facility] CBC LEUKOCYTES [#/VOLUME] IN BLOOD BY AUTOMATED COUNT 6.2 10*3/u L 3.6 - 11.2 05/13 Specimen Type: BLOOD No comment entered. Ordering Provider: TRENTON WIN Report Released Date/Time: May 13, 2022 09:43 AM Reporting Lab: [address] [address] Performing Lab: [address] [phone] [place] [address] [facility] CBC ERYTHROCYTE S [#/VOLUME] IN BLOOD BY AUTOMATED COUNT 5.29 10*6/u L 4.10 - 5.70 05/13 Specimen Type: BLOOD No comment entered. Ordering Provider: TRENTON WIN Report Released Date/Time: May 13, 2022 09:43 AM Reporting Lab: [address] [address] Performing Lab: [place] [phone] [facility] CBC HEMOGLOBIN [MASS/VOLUM E] IN BLOOD 15.5 g/dL 13.1 - 16.8 05/13 Specimen Type: BLOOD No comment entered. Ordering Provider: TRENTON WIN Report Released Date/Time: May 13, 2022 09:43 AM Reporting Lab: [place] [address] Performing Lab: [address] [facility] CBC HEMATOCRIT [VOLUME FRACTION] OF BLOOD 46.9 38.2 - 48.4 05/13 Specimen Type: BLOOD No comment entered. Ordering Provider: TRENTON WIN Report Released Date/Time: May 13, 2022 09:43 AM Reporting Lab: [place] [id number] Performing Lab: [address] [phone] [place] [address] [facility] CBC MCV [ENTITIC VOLUME] BY AUTOMATED COUNT 88.7 fL 80.0 - 100.0 05/13 Specimen Type: BLOOD No comment entered. Ordering Provider: TRENTON WIN Report Released Date/Time: May 13, 2022 09:43 AM Reporting Lab: [address] [address] Performing Lab: [address] [phone] [facility] CBC MCH [ENTITIC MASS] BY AUTOMATED COUNT 29.3 pg 27.0 - 34.0 05/13 Specimen Type: BLOOD No comment entered. Ordering Provider: TRENTON WIN Report Released Date/Time: May 13, 2022 09:43 AM Reporting Lab: [place] [id number] Performing Lab: [address] [phone] [facility] CBC MCHC [MASS/VOLUM E] BY AUTOMATED COUNT 33.0 g/dL 33.0 - 36.0 05/13 Specimen Type: BLOOD No comment entered. Ordering Provider: TRENTON WIN Report Released Date/Time: May 13, 2022 09:43 AM Reporting Lab: [place] [address] Performing Lab: [address] [facility] CBC PLATELETS [#/VOLUME] IN BLOOD BY AUTOMATED COUNT 323 10*3/u L 150 - 400 05/13 Specimen Type: BLOOD No comment entered. Ordering Provider: TRENTON WIN Report Released Date/Time: May 13, 2022 09:43 AM Reporting Lab: [place] [address] Performing Lab: [place] [phone] [facility] CBC PLATELET MEAN VOLUME [ENTITIC VOLUME] IN BLOOD BY AUTOMATED COUNT 9.9 fL 7.5 - 11.2 05/13 Specimen Type: BLOOD No comment entered. Ordering Provider: TRENTON WIN Report Released Date/Time: May 13, 2022 09:43 AM Reporting Lab: [place] [id number] Performing Lab: [address] [phone] [place] [address] [facility] CBC ERYTHROCYTE DISTRIBUTIO N WIDTH [RATIO] BY AUTOMATED COUNT 11.7 11.8 - 15.1 05/13 L Specimen Type: BLOOD No comment entered. Ordering Provider: TRENTON WIN Report Released Date/Time: May 13, 2022 09:43 AM Reporting Lab: [facility] [address] [place] [phone] Performing Lab: [address] [phone] [place] [address] [facility] CBC LYMPHOCYTES /100 LEUKOCYTES IN BLOOD BY AUTOMATED COUNT 26 05/13 Specimen Type: BLOOD No comment entered. Ordering Provider: TRENTON WIN Report Released Date/Time: May 13, 2022 09:43 AM Reporting Lab: [facility] [address] [place] [phone] Performing Lab: [place] [phone] [facility] CBC MONOCYTES/1 00 LEUKOCYTES IN BLOOD BY AUTOMATED COUNT 13 05/13 Specimen Type: BLOOD No comment entered. Ordering Provider: TRENTON WIN Report Released Date/Time: May 13, 2022 09:43 AM Reporting Lab: [facility] [address] [place] [phone] Performing Lab: [address] [address] [facility] CBC NEUTROPHILS /100 LEUKOCYTES IN BLOOD BY AUTOMATED COUNT 57 05/13 Specimen Type: BLOOD No comment entered. Ordering Provider: TRENTON WIN Report Released Date/Time: May 13, 2022 09:43 AM Reporting Lab: [facility] [address] [place] [phone] Performing Lab: [place] [phone] [facility] CBC EOSINOPHILS /100 LEUKOCYTES IN BLOOD BY AUTOMATED COUNT 3 05/13 Specimen Type: BLOOD No comment entered. Ordering Provider: TRENTON WIN Report Released Date/Time: May 13, 2022 09:43 AM Reporting Lab: [address] [address] Performing Lab: [address] [address] [facility] CBC BASOPHILS/1 00 LEUKOCYTES IN BLOOD BY AUTOMATED COUNT 1 05/13 Specimen Type: BLOOD No comment entered. Ordering Provider: TRENTON WIN Report Released Date/Time: May 13, 2022 09:43 AM Reporting Lab: [address] [address] Performing Lab: [place] [phone] [facility] CBC LYMPHOCYTES [#/VOLUME] IN BLOOD BY AUTOMATED COUNT 1.59 10*3/u L 0.77 - 4.50 05/13 Specimen Type: BLOOD No comment entered. Ordering Provider: TRENTON WIN Report Released Date/Time: May 13, 2022 09:43 AM Reporting Lab: [address] [address] Performing Lab: [address] [phone] [place] [address] [facility] CBC MONOCYTES [#/VOLUME] IN BLOOD BY AUTOMATED COUNT 0.82 10*3/u L 0.19 - 1.50 05/13 Specimen Type: BLOOD No comment entered. Ordering Provider: TRENTON WIN Report Released Date/Time: May 13, 2022 09:43 AM Reporting Lab: [address] [address] Performing Lab: [address] [address] [facility] CBC NEUTROPHILS [#/VOLUME] IN BLOOD BY AUTOMATED COUNT 3.55 10*3/u L 2.10 - 8.00 05/13 Specimen Type: BLOOD No comment entered. Ordering Provider: TRENTON WIN Report Released Date/Time: May 13, 2022 09:43 AM Reporting Lab: [place] [address] Performing Lab: [address] [facility] CBC EOSINOPHILS [#/VOLUME] IN BLOOD BY AUTOMATED COUNT 0.17 10*3/u L 0.00 - 0.60 05/13 Specimen Type: BLOOD No comment entered. Ordering Provider: TRENTON WIN Report Released Date/Time: May 13, 2022 09:43 AM Reporting Lab: [place] [address] Performing Lab: [address] [facility] CBC BASOPHILS [#/VOLUME] IN BLOOD BY AUTOMATED COUNT 0.05 10*3/u L 0.00 - 0.20 05/13 Specimen Type: BLOOD No comment entered. Ordering Provider: TRENTON WIN Report Released Date/Time: May 13, 2022 09:43 AM Reporting Lab: [place] [address] Performing Lab: [address] [facility] FREE T4 THYROXINE (T4) FREE [MASS/VOLUM E] IN SERUM OR PLASMA 1.12 ng/mL 0.7 - 1.48 05/13 Specimen Type: SERUM No comment entered. Ordering Provider: TRENTON WIN Report Released Date/Time: May 13, 2022 09:43 AM Reporting Lab: [place] [address] Performing Lab: [address] [facility] HGA1C HEMOGLOBIN A1C/HEMOGLO BIN.TOTAL IN BLOOD 4.7 4.0 - 6.0 05/13 Specimen Type: BLOOD No comment entered. Ordering Provider: TRENTON WIN Report Released Date/Time: May 13, 2022 09:43 AM Reporting Lab: [facility] [address] [place], [place] [phone] Performing Lab: [address] [phone] [place] [address] [facility] URINALYSIS (STL) COLOR OF URINE Light- Yellow 05/13 Specimen Type: URINE No comment entered. Ordering Provider: TRENTON WIN Report Released Date/Time: May 13, 2022 09:43 AM Reporting Lab: [place] [id number] Performing Lab: [place] [phone] [facility] URINALYSIS (STL) BILIRUBIN.T OTAL [PRESENCE] IN URINE BY TEST STRIP Negati vemg/d L 05/13 Specimen Type: URINE No comment entered. Ordering Provider: TRENTON WIN Report Released Date/Time: May 13, 2022 09:43 AM Reporting Lab: [place] [phone] Performing Lab: [place] [phone] [facility] URINALYSIS (STL) PH OF URINE BY TEST STRIP 6.5 5.0 - 8.0 05/13 Specimen Type: URINE No comment entered. Ordering Provider: TRENTON WIN Report Released Date/Time: May 13, 2022 09:43 AM Reporting Lab: [place] [address] [place] [phone] Performing Lab: [place] [phone] [place] [address] [facility] URINALYSIS (STL) APPEARANCE OF URINE Clear 05/13 Specimen Type: URINE No comment entered. Ordering Provider: TRENTON WIN Report Released Date/Time: May 13, 2022 09:43 AM Reporting Lab: [facility] [address] [place] [phone] Performing Lab: [facility] [address] [place] [phone] [facility] URINALYSIS (STL) NITRITE [PRESENCE] IN URINE BY TEST STRIP Negati vemg/d L 05/13 Specimen Type: URINE No comment entered. Ordering Provider: TRENTON WIN Report Released Date/Time: May 13, 2022 09:43 AM Reporting Lab: [address] [address] Performing Lab: [address] [phone] [place] [address] [facility] URINALYSIS (STL) GLUCOSE [MASS/VOLUM E] IN URINE BY TEST STRIP Normal mg/dL 05/13 Specimen Type: URINE No comment entered. Ordering Provider: TRENTON WIN Report Released Date/Time: May 13, 2022 09:43 AM Reporting Lab: [address] [address] Performing Lab: [address] [address] [facility] URINALYSIS (STL) PROTEIN [MASS/VOLUM E] IN URINE BY TEST STRIP Negati vemg/d L - 20 05/13 Specimen Type: URINE No comment entered. Ordering Provider: TRENTON WIN Report Released Date/Time: May 13, 2022 09:43 AM Reporting Lab: [facility] [address] [place] [phone] Performing Lab: [address] [address] [facility] URINALYSIS (STL) URN.UROBILI NOGEN Normal mg/dL 05/13 Specimen Type: URINE No comment entered. Ordering Provider: TRENTON WIN Report Released Date/Time: May 13, 2022 09:43 AM Reporting Lab: [facility] [address] [place], [place] [phone] Performing Lab: [facility] [address] [place], [place] [phone] [address] [facility] URINALYSIS (STL) HEMOGLOBIN [MASS/VOLUM E] IN URINE BY TEST STRIP Negati vemg/d L 05/13 Specimen Type: URINE No comment entered. Ordering Provider: TRENTON WIN Report Released Date/Time: May 13, 2022 09:43 AM Reporting Lab: [place] [phone] Performing Lab: [address] [facility] URINALYSIS (STL) KETONES [MASS/VOLUM E] IN URINE BY TEST STRIP Negati vemg/d L 05/13 Specimen Type: URINE No comment entered. Ordering Provider: TRENTON WIN Report Released Date/Time: May 13, 2022 09:43 AM Reporting Lab: [place] [phone] Performing Lab: [address] [facility] URINALYSIS (STL) URN.LEUK.ES T. Negati vemg/d L 05/13 Specimen Type: URINE No comment entered. Ordering Provider: TRENTON WIN Report Released Date/Time: May 13, 2022 09:43 AM Reporting Lab: [place] [phone] Performing Lab: [place] [phone] [facility] URINALYSIS (STL) SPECIFIC GRAVITY OF URINE 1.014 1.005 - 1.029 05/13 Specimen Type: URINE No comment entered. Ordering Provider: TRENTON WIN Report Released Date/Time: May 13, 2022 09:43 AM Reporting Lab: [facility] [address] [facility] [address] Performing Lab: [facility] [address] [facility] [address] [facility] Vital Signs Combined list of inpatient and outpatient Vital Signs from Department of Defense and Veterans Affairs, ranging from 12 months to all on record, depending upon the facility. Vital Sign Value Date Comments Source SYSTOLIC BLOOD PRESSURE 135 03/20/2024 12:29:19 [place] [facility] DIASTOLIC BLOOD PRESSURE 88 03/20/2024 12:29:19 [facility] PULSE OXIMETRY 96 03/20/2024 12:29:19 [place] [facility] WEIGHT 281.4 03/20/2024 12:29:19 [facility] BMI 38 kg/m2 03/20/2024 12:29:19 [facility] PAIN 4 03/20/2024 12:29:19 [facility] HEIGHT 72 03/20/2024 12:29:19 [facility] [facility] TEMPERATURE 99.1 03/20/2024 12:29:19 [place] [facility] PULSE 96 03/20/2024 12:29:19 . [facility] RESPIRATION 18 03/20/2024 12:29:19 [place] [facility] SYSTOLIC BLOOD PRESSURE 168 05/15/2023 09:53:55 [facility] DIASTOLIC BLOOD PRESSURE 96 05/15/2023 09:53:55 [facility] PULSE OXIMETRY 97 05/15/2023 09:53:55 [place] [facility] WEIGHT 286.3 05/15/2023 09:53:55 [facility] BMI 39 kg/m2 05/15/2023 09:53:55 [facility] PAIN 2 05/15/2023 09:53:55 [facility] [facility] TEMPERATURE 98.7 05/15/2023 09:53:55 . [facility] PULSE 88 05/15/2023 09:53:55 [facility] RESPIRATION 20 05/15/2023 09:53:55 [facility] Encounters Combined list of: 1) Encounters from Department of Veterans Affairs facilities going backup to the last 18 months, not all VA inpatient encounters are included; 2) Encounters from the Department of Defense facilities going backup to 280 months. Location Location Details Encounter Type Encounter Number Reason For Visit Attending Provider ADM Date DC Date Status Disposition Source [place]) OUTPATIENT [id number] hearing screeni SCOUT [place] 01/22 Released w/o Limitations [place] AD DIRECT TO [facility] NEVER TRNF TO [facility] [id number] SON CARPIO 02/[address] [place] [address] AD DIRECT TO [facility] NEVER TRNF TO [facility] [id number] DEBBIE BROWN 02/07 RET[facility]ED [facility] [place] [facility] [place] [address] [place]-[facility]/M [place]aged [place]) TELE CONSULT [id number] Call from [facility] ENMANUEL MERCER 02/22 [place] [place] OUTPATIENT [id number] Post hospita lizatio n medicat ion issues. Needs new rx for pain medicat ion VIRGILIO LOVELL 03/01 Released with Work/Duty Limitations [place] [place] TELE CONSULT [id number] FOLLOW UP FROM VINH ROSADO TO SETUP TECHNICIAN FOR PT. VIRGILIO LOVELL 03/02 [place] [place] TELE CONSULT [id number] Update RUSLANENMANUEL Emanuel 03/02 [place]) [place] [id number] Multi fractur es from [facility] ATIF CORDOBA 03/07 Released with Work/D[place] Lim[place] TELE CONSULT [id number] Update RUSLANENMANUEL Emanuel 03/08 [place] [place] [facility] [id number] CLOSED FRACTUR E OF SHAFT OF FEMUR RIGHT HERMINIO BONILLA 03/13 [place]ased w/o Limitations [place]) [place] [id number] FRACTUR E OF HUMERUS JAYCOB BUCKNER 03/16 Released with Work/Duty Lim[place]) [place] [id number] proc STEPHEN BRYANT 03/21 Released with Work/Duty Lim[place]) [place] [id number] proc JAYCOB BUCKNER 03/23 Released with Work/Duty Lim[place] [facility]IENT [id number] legs f/u HERMINIO BONILLA 03/23 Released w/o Limitations [place] OUTPATIENT [id number] f/u poly trauma HERMINIO BONILLA 03/29 Released w/o Limitations [place] [place] [id number] proc JAYCOB BUCKNER 04/02 Released with Work/Duty Lim[place] [id number] poly trauma HERMINIO BONILLA 04/03 Released w/o Limitations [place] [place] [id number] proc STEPHEN BRYANT 04/05 Released with Work/Duty Lim[place] [id number] 4wk/fx femur/t ib fib/hum erus ATIF CORDOBA L 04/05 Released with [place] [place] [facility] [id number] poly trauma HERMINIO BONILLA 04/06 Released w/o Limitations [place] [id number] poly trauma HERMINIO BONILLA 04/10 Released w/o Limitations [place] [place] [id number] F/U FROM JENNY AMARA PATEL 04/10 [place]ased w[place]o Limitations [place] [id number] proc HEAD, LIU 04/16 Released [place]o Limitations [place] [place] [facility] [id number] poly trauma MIKY BONILLAGH ANNE 04/16 Released [place]/o Limitations [place] [id number] poly trauma [facility] 04/17 Released with Work/Duty Lim[place]) [place] [id number] [facility]/25 Released [place]o Limitations [place] TELE CONSULT [id number] Follow up ENMANUEL MERCER 04/27 [place] [id number] poly trauma HERMINIO BONILLA ANNE 04/27 Released w/o Limitations [place] [id number] poly trauma [facility] 05/01 Released with Work/Duty Limitations [place]IENT [id number] poly trauma ARLENE WHIPPLE 05/07 Released with Work/Duty Lim[place] [id number] poly trauma [facility] I 05/09 Released with Work/Duty Lim[place] OUTPATIENT [id number] f/u poly trauma HERMINIO BONILLA 05/13 Released [place]/o Limitations [place] [id number] 6wk tib/fib /femur ATIF CORDOBA 05/17 Released with Work/Duty Lim[place] [id number] poly trauma [facility] I 05/21 Released with Work/Duty Lim[place] [id number] per mr sumi/ r knee MEÑO LINDQUIST 05/22 [place]o Limitations [place] [place] [id number] poly trauma FERMIN LOPEZ I 05/24 Released with Work/Duty Lim[place] [place] [id number] poly trauma JB WHIPPLEITH 05/27 Released with Work/Duty Limitations [place] [facility] [id number] poly trauma PATNDRO, ARLENE 05/29 Released with Work/Duty Lim[place] [place] [facility] [id number] poly trauma PATNDCONCEPCION, ARLENE 06/05 Released with Work/Duty Limitations [place] [place] [id number] poly trauma SARABJIT, ARLENE 06/10 Released with Work/Duty Lim[place] [place] [place] [facility] [id number] poly trauma SARABJIT, ARLENE 06/12 Released with Work/Duty Limitations [place] [place] [id number] [facility] WT[facility]EVE LOVING 06/17 [place]ased w/o Limitations [place] OUTPATIENT [id number] poly trauma HERMINIO BONILLA 06/18 Released w/o Limitations [place] [place]) [place] [id number] poly trauma HERMINIO BONILLA 06/27 Released w/o Limitations [place]) [place] [id number] poly trauma AKBAR DIXON 06/28 Released with Work/Duty Limitations [place]) [place] [id number] poly trauma AKBAR DIXON 07/02 Released with Work/Duty Lim[place]) [place] [id number] muscle weakTEE Mixon 07/10 Released w/o [place]itations [place]) [place] [id number] poly trauma MISTI BERRY 07/12 Released w/o Limitations [place]) [place] [id number] [facility] John 07/12 Released with Work/Duty Limitations [place]) [place] [id number] JAMALMISTI 07/16 Released w/o Limitations [place] [id number] knee, tibia pain HUMBERTO LIDYANeil BULLOCK 07/16 Released with [place]) [place] [id number] [facility] John 07/19 Released with [place]) [place] [id number] HEAD, LIU 07/19 [place]ased [place]) [place] [id number] MALATHI CARNEY 07/22 Released with [place] [id number] MALATHI CARNEY 07/22 Released [place] [id number] f/u poly trauma HERMINIO BONILLA 07/23 [place]ased [place] [place]) [place] [id number] STEPHEN BRYANT 07/23 Released [place]) [place] [id number] MAYRA PHELAN 07/24 Released [place]) [place] [id number] STEPHEN BRYANT 07/25 Released [place] [id number] polytra ANASTACIA Aponte 07/30 Released [place] [place] [id number] MAYRA PHELAN 07/30 [place]ased [place]) [place] [id number] ZHANE MAYRA John 07/31 Released [place] [id number] polytra rickie PARHAM, ANASTACIA D 08/02 Released [place] [place]) [place] [id number] HEAD, LIU 08/02 [place]ased [place]) [place] [id number] TEE Najera 08/05 [place]ased [place] [id number] polytra rickie PARHAM, ANASTACIA D 08/06 Released [place] [place] [id number] MIKEY Roque 08/06 [place]ased [place] [id number] MIKEY Roque 08/07 Released [place]Duty [place] [id number] polytra rickie PARHAM, ANASTACIA D 08/08 [place]ased [place] [facility] [place] [id number] proc MIKEY RICE 08/09 [place]ased [place] [id number] proc MIKEY RICE 08/12 Released [place] [id number] polytra rickie ANASTACIA PARHAM 08/13 Released [place] [place] [id number] proc MAYRA PHELAN 08/14 Released [place]Duty [place] [id number] polytra [facility] ARLENE WHIPPLE 08/15 [place]ased [place]o Limitations [place] [place] [id number] proc MIKEY RICE 08/16 Released [place] [id number] polytra rickie HERMINIO BONILLA 09/02 [place]ased [place]o [place] [place] [id number] poly trauma DANIELLE, TATY R 09/10 [place]ased [place] [place] [id number] proc MALATHI CARNEY 09/11 Released [place] [id number] poly trauma PARHAMWARNERG D 09/13 Released [place] [place] [id number] proc HEAD, LIU 09/18 [place]ased [place] [id number] consult ///[phone] 4/lm SHIRLEY REYNOSO 09/20 [place] [id number] poly trauma DANIELLE, TATY R 09/20 [place] [place] [id number] proc MIKEY RICE 09/23 Released [place] [id number] poly trauma DANIELLE, TATY R 09/24 [place]ased [place] [place] [id number] poly trauma PARHAM, ANASTACIA D 09/26 Released [place]Duty [place] [place] [id number] poly trauma PARHAM, ANASTACIA D 10/01 Released [place] [place] [id number] F/U SHIRLEY REYNOSO 10/02 [place]ased [place] [id number] PT Re-Eval uation HERMINIO BONILLA 10/04 [place]ased [place] [place] [id number] F/U SHIRLEY REYNOSO 10/10 [place] [id number] surg 15aug TONIA ISIDRO 10/14 [place] [id number] pre-op/ surg 20 oct/r knee/ch JERRI Jung 10/15 [place] [id number] post op TNOIA ISIDRO 10/25 [place]ased [place] [id number] f/u SHIRLEY REYNOSO 10/28 [place]ased [place] [id number] HERMINIO BONILLA 10/28 [place]ased [place] [place] TELE CONSULT [id number] CON LEAVE/C ALL@ [phone] TONIA ISIDRO 10/29 [place] [id number] new profile and bp concern s ZACHARY ROCHA 10/30 [place] [id number] f/u SHIRLEY REYNOSO 11/11 [place]ased [place] [id number] poly trauma HERMINIO BONILLA 11/12 [place]ased [place] [place] [id number] poly trauma DANIELLE, TATY Jimenez 11/14 [place] [place] [id number] poly trauma DANIELLE, TATY R 11/19 [place] [place] [id number] NEW PATIENT ARASH ROBERTS 11/21 [place] [id number] f/u SHIRLEY REYNOSO 11/21 [place] [id number] poly trauma TATY SANTOS R 11/22 [place] [place] [id number] poly trauma DANIELLETATY RAINEY R 11/25 [place] [place] [place] [place] OUTPATIENT [id number] weekly visit for ITA PARSONS 12/04 Released with Work/Duty [place] [place] [facility] [id number] poly trauma WINKLER JERRI Lopez 12/04 Released [place]/D[place] [place] [id number] f/u SHIRLEY REYNOSO 12/05 [place]ased [place] [id number] MEB Phase 2 / DELBERT JASON 12/10 [place]ased [place]/Duty [place] [place] [facility] [place] [facility] [place] [place] [id number] Weekly Encount QUINCY Aragon 12/10 [place]ased [place] [place] [id number] poly trauma JERRI WINKLER 12/10 [place] [place] [id number] FLUMIST /AD/[facility] [employer] MOLLY DHAVAL K 12/11 [place]ased [place] [id number] TBI EVALUAT ION REF: [facility] AND [facility] JOHNNY AZUL 12/11 [place]ased [place] [place] [facility] [id number] poly trauma WINKLERJERRI 12/12 [place]ased [place]o [place] [place]) [place] [id number] shen s left arm and hand STEPHEN BRYANT 12/13 [place]ased [place]o [place] [id number] CM follow up r/t mTBI appt 8 Oct 08 KATELIN SEPULVEDA 12/18 [place]ased [place]o [place] [facility] [place] [facility] [place] [id number] weekly encount QUINCY Aragon 12/18 Released with [place]/Duty [place] [place] [id number] poly trauma WINKLERJERRI A 12/18 [place] [facility] [place] [id number] f/u SHIRLEY RENYOSO 12/19 [place]ased [place] [id number] poly trauma WINKLERJERRI A 12/20 Released [place]/D[place] [place] [id number] poly trauma WINKLERJERRI A 12/23 Released [place]/Duty [place] [place] [id number] F/U APPT JOHNNY AZUL 12/24 [place]ased [place]o Lim[place] [place] [facility] [id number] poly trauma WINKLERJERRI A 12/25 Released [place] [place]) [place] [id number] back class FLOYDENMANUEL Neil 12/26 [place] [id number] difficu lties in speech RYNE MACHUCA 12/27 [place] [place] TELE CONSULT [id number] CM f/u QUINCY BRODY 12/27 [place] [place] [id number] f/u SHIRLEY REYNOSO 12/30 [place]o [place] [id number] poly trauma JERRI WINKLER 12/30 Released [place]/Duty [place] [place] [id number] poly trauma JERRI WINKLER 01/01 Released with [place]/Duty [place] [place] [place] [id number] weekly encount er CASSANDRA MICHELE 01/03 Released with [place]/Duty [place] [place] [place] TELE CONSULT [id number] Weekly encount er CASSANDRA MICHELE 01/10 [place] [place] [id number] poly trauma HERMINIO BONILLA 01/17 [place]ased [place]o Lim[place] [place] [place] [facility] [place] [id number] weekly encount er CASSANDRA MICHELE 01/17 [place]ased w[place]o Limitations [place] [place] [id number] F/U APPT JOHNNY AZUL 01/23 [place]ased [place]o Limitations [place] [facility] [place] [facility] [place] TELE CONSULT [id number] weekly encount er CASSANDRA MICHELE 01/24 [place] [place] [id number] PROFILE UPDATE- CM ROSA M KIRAN 01/29 [place]ased [place]o [place] [place] [id number] weekly encount er CASSANDRA MICHELE 01/29 Released with [place]/Duty [place] [place] [id number] f/u SHIRLEY REYNOSO 02/03 [place]ased [place]o [place] [place] [id number] Weekly encount er CASSANDRA MICHELE 02/04 [place]ased w/o Limitations [place] [place] [id number] f/u for hand ROSA M PATEL 02/04 [place]ased w[place]o Limitations [place] [id number] POLY TRAUMA HERMINIO BONILLA 02/04 [place]ased [place]o Lim[place] [place] [place] [id number] weekly encoute r WILIAM MICHELENEJuni Desouza 02/14 [place]ased [place]/Duty [place] [place] [id number] F/U SHIRLEY REYNOSO 02/17 [place]ased [place]o [place] [place] TELE CONSULT [id number] Weekly encount er WILIAM MICHELENEN L 02/21 [place] [place] TELE CONSULT [id number] PT NO SHOW HERMINIO BONILLA 03/05 [place] [place] [place] [id number] Weekly encount er LENY, CASSANDRA L 03/10 [place]ased [place]/Duty [place] [place] [id number] poly trauma. cpt swaffor d's previou s pnt. GREGORIO ELIZALDE 03/12 [place]ased [place] [place] [id number] f/u SHIRLEY REYNOSO 03/13 [place]ased [place] [id number] L LEG TONIA ISIDRO 03/13 [place] [place] [id number] weekly encount er CASSANDRA MICHELE 03/17 Released [place]/Duty [place] [place] [id number] 009/PRE -OP/KDS GASTON VELASCO 03/18 [place]) [place] [id number] post op left knee surg mar 14 ENMANUEL BARRIENTOS 03/26 [place]ased [place]o [place] [id number] pop surgery on TONIA ISIDRO 03/28 [place]ased [place] [place] TELE CONSULT [id number] weekly encount er CASSANDRA MICHELE 03/28 [place] [place]LE CONSULT [id number] NO SHOW [id number] HIGH/LO SHIRLEY GILMORE 03/31 [place] [place]LE CONSULT [id number] Late-en try weekly encount er. CASSANDRA MICHELE 03/31 [place] [place]LE CONSULT [id number] Weekly encount er CASSANDRA MICHELE 03/31 [place] [place] [id number] Medicat ion Review/ Weekly Encount er CASSANDRA MICHELE 04/04 [place]ased [place] [place] TELE CONSULT [id number] [facility]\J 1st eval report from a special ist has been scanned into ADIN Bain 04/07 [place] [place] [place] [facility] [place]PATIENT [id number] Weekly encount er CASSANDRA MICHELE 04/10 [place] [place] [id number] NARSUM/ as per Ms.Brad chauhan/JHON Hendrix 04/11 [place] Lim[place] [facility] [id number] F/U [phone] KETAN REYNOSOWIN 04/14 [place]ased [place]o Lim[place] [place] TELE CONSULT [id number] Weekly encount er LENY, CASSANDRA L 04/18 [place] [place]) [place] [id number] RACHEL BARRIENTOS ENMANUEL D 04/25 [place] TELE CONSULT [id number] Weekly encount er LENY, CASSANDRA L 04/26 [place] [place] [id number] f/u [phone] SHIRLEY REYNOSO 04/28 [place] [place] [place] [id number] Weekly encount er ELNY, CASSANDRA L 04/29 [place]ased with Work/Duty Lim[place] [place] [place] TELE CONSULT [id number] Weekly encount er LENY, CASSANDRA L 05/07 [place] [place] [id number] MEASLES ISSUES PER CM TEE CABRERA 05/08 [place]ased [place] Limitations [place] [place] [facility] [place] [place] [id number] INITIAL VISIT PER CM LENY SINGHVANESA MAST Robert 05/09 [place]o Limitations [place] [place] [id number] F/U [phone] SHIRLEY REYNOSO 05/12 [place]ased [place]o Limitations [place] [id number] [facility]/LAT E EFFECTS OF INJURIE S FRACTUR E UPPER EXTREMI TIES/CM LENY NOTIF 05/09 MIGUEL GRAYSON 05/13 [place] [place] [id number] Weekly encount er CASSANDRA MICHELE 05/15 Released with Work/Duty Lim[place] [place] [place] TELE CONSULT [id number] Weekly encoutn er CASSANDRA MICHELE 05/20 [place] [place] [id number] f/u SHIRLEY REYNOSO 05/29 [place]ased [place]o Limitations [place] [place] [id number] Weekly encount er CASSANDRA MICHELE 05/29 Released with Work/Duty Lim[place] [place] TELE CONSULT [id number] MEDICAT ION REQUEST CASSANDRA MICHELE 05/31 [place] [place]) [place] [id number] Weekly encount er- T-CON CASSANDRA MICHELE L 06/04 Released with Work/Duty Limitations [place] [place] [place] [id number] Weekly encount er CASSANDRA MICHELE L 06/17 Released with Work/Duty Limitations [place] [place] [id number] WTU/CM LENY/ TEE BARRERA 06/19 [place]ased w/o Limitations [place] [id number] f/u SHIRLEY REYNOSO 06/23 [place]ased [place]o Limitations [place]IENT [id number] REYNA FISCHER 06/24 [place]ased w/o Limitations [place] [place] [id number] Weekly encount er CASSANDRA MICHELE L 06/25 Released with Work/Duty Lim[place] [place] [place] [place] [id number] Weekly encount er CASSANDRA MICHELE L 07/02 Released with Work/Duty Lim[place] [place] [place] TELE CONSULT [id number] Weekly Encount er-Appt Need CASSANDRA MICHELE 07/08 [place] [place] OUTPATIENT [id number] Weekly encount er CASSANDRA MICHELE L 07/11 Released with Work/Duty [place] [place] [facility] OUTPATIENT [id number] Weekly encount er CASSANDRA MICHELE 07/14 Released with Work/Duty Lim[place] [place] [facility] [id number] f/u [phone] SHIRLEY REYNOSO 07/14 [place]ased w/o Limitations [place] OUTPATIENT [id number] WEEKLY ENCOUNT ER CASSANDRA MICHELE 07/21 Released with Work/Duty Lim[place] [place] [facility]PATIENT [id number] medicat ion needs/c smngr TEE Hood 07/31 [place]ased w[place]o Limitations [place] OUTPATIENT [id number] Weekly Encount er CASSANDRA MICHELE 08/04 Released with Work/Duty Lim[place] [place] [facility] TELE CONSULT [id number] WEEKLY ENCOUNT ER T-CON CASSANDRA MICHELE 08/21 [place] [place] [place] TELE CONSULT [id number] Weekly Encount er CASSANDRA MICHELE 08/28 [place] [place] [place] TELE CONSULT [id number] Weekly Encount er CHELLE WASHINGTON 09/08 [place] [place] [place] TELE CONSULT [id number] NCM Weekly Encount er CHELLE WASHINGTON 09/12 [place] [place] [place] TELE CONSULT [id number] Weekly Encount er CHELLE WASHINGTON 09/17 [place] [place] [place] TELE CONSULT [id number] Weekly Encount er CHELLE WASHINGTON 09/26 [place] [place] [place] TELE CONSULT [id number] Final NCM Weekly Encount er CHELLE WASHINGTON 09/30 [place] [place] [facility] [place]) OUTPATIENT [id number] BP CHECK DAY #1 PER COL JUAN JOSÉ KAUFMAN W/LUIS CARLOS RDZ 03/03 Released w/o Limitations [facility] [place] [facility] [place] OUTPATIENT [id number] CONTRAC MANDEEP GONZALEZ NE DAY #2 BP CK PER COL LUIS CARLOS EUCEDA 03/04 Released w/o Limitations [facility]( [facility] [place] [facility] [place] OUT[facility] [id number] CONTRAC TOR LISA NE FLIGHT KERRIE PHAM 03/05 Released w/o Limitations [facility]( [facility] [place] [facility] OUTPATIENT [id number] Civ audio LEYDA DORA 03/05 Released w/o Limitations [facility]( [facility] [place] TELE CONSULT [id number] Notes Entered by: KERRIE PATIÑO 17 Apr 2014 [id number] ------- ------- ------- ------- -- Flight Barbara desouza follow- up KERRIE PATIÑO 04/17 [facility] [place] [facility] [place] TELE CONSULT [id number] Notes Entered by: KERRIE PATIÑO 29 Apr 2014 0649 ------- ------- ------- ------- -- Change in [place] KERRIE PATIÑO 04/29 [facility] [place] [facility] OUTPATIENT [id number] neuro exam for aeromed ical OMID Xiao 05/19 Released w/o Limitations [facility]( [facility]) [facility] OUTPATIENT [id number] NU SEWELL 05/19 Released w/o Limitations [facility]( [facility]) [facility] OUTPATIENT [id number] NU SEWELL 05/19 Released w/o Limitations [facility]( [facility]) [facility] OUTPATIENT [id number] NU SEWELL 05/20 Released w/o Limitations [facility]( [facility]) [facility] TELE CONSULT [id number] Notes Entered by: NU SEWELL 01 Jul 2014 1723 ------- ------- ------- ------- -- Phone call for neurops ycholog ical testing [facility] emergency department NU Hopkins 07/01 [facility]( [facility]) [facility](Op tometry Cl [facility]) OUTPATIENT [id number] FLIGHT OVI GOLDSMITH BUFFYRA Conklin 01/23 Released w/o Limitations [facility]( Optomet ry Cl [facility]) [facility](He ar Conserv [facility]) OUTPATIENT [id number] TRISHA SERNA 01/23 Released w/o Limitations [facility]( Hear [facility]) [facility](Fl ight Med [facility]) OUTPATIENT [id number] 1 CLASS IV LONG ATC CIV ALEX RAMOS 01/23 Released w/o Limitations [facility]( Flight Med [facility]) [facility](Fl ight [facility]) OUTPATIENT [id number] part 2 Flight ALEX RAMOS 01/27 Released w/o Limitations [facility]( Flight Med [facility]) [facility](Ph ys Med & Rehab Cl [facility]) TELE CONSULT [id number] Notes Entered by: JAYCOB ROY 18 Feb 2015 1337 ------- ------- ------- ------- -- PT would like to speak to provide r about flight ELVIS Zapata 02/18 [facility]( Phys Med [facility]hab [facility]) [facility] [place] OUTPATIENT [id number] Flight BONG Ryan 02/10 Released w/o Limitations [facility] [place] [facility] [place] OUTPATIENT [id number] ATC FLIGHT KERRIE PHAM 02/21 Released w/o Limitations [facility] [place] [facility]He aring [facility]) OUTPATIENT [id number] [facility] audio DORA CRABTREE 02/21 Released w/o Limitations [facility]( Hearing [facility]) [facility] [place] TELE CONSULT [id number] Notes Entered by: KERRIE PATIÑO 23 Feb 2016 0908 ------- ------- ------- ------- -- Report labs KERRIE PATIÑO 02/22 [facility] [place] [facility] [place] OUTPATIENT [id number] Notes Entered by: KERRIE PATIÑO 27 Apr 2016 1442 ------- ------- ------- ------- -- [place] KERRIE PATIÑO 04/27 Released w/o Limitations [facility] [place] [facility] [place] OUTPATIENT [id number] RTW CLEARAN KERRIE CHENEY 08/15 Released w/o Limitations [facility] [place] [facility] [place] OUTPATIENT [id number] FLIGHT KERRIE PHAM 02/21 Released w/o Limitations [facility] [place] [facility]) OUTPATIENT [id number] [facility] AUDIO SCOUT MARINELLI 02/21 Released w/o Limitations [facility]( Hearing [facility]) [facility] [place] OUTPATIENT [id number] ECG re-do KERRIE PATIÑO 03/07 Released w/o Limitations [facility] [place] [facility] Outpatient Encounter [id number] 03/10 [facility] Outpatient Encounter [id number] JOE MCQUEEN 03/10 [facility] Outpatient Encounter [id number] 05/10 [facility] TELEHEALTH FACILITY FEE [id number] Diagnos is: ICD-10- CM I10 Essenti al (primar y) hyperte nsaylin JODI LOCK IS J 05/14 [facility] OFFICE O/P EST LOW 20 MIN [id number] Diagnos is: ICD-10- CM Z00.01 Encount er for general adult medical exam w abnorma l finding s JODI LOCK IS J 05/14 [facility] Outpatient Encounter [id number] 06/20 [facility] Outpatient Encounter [id number] 07/04 [facility] Outpatient Encounter [id number] 02/03 [facility] Outpatient Encounter [id number] SHABNAM CHRISTENSEN 03/18 [facility] SYNCH AUDIO-VIDE O EST MOD 30 [id number] Diagnos is: ICD-10- CM I10 Essenti al (primar y) hyperte nsion DICK,GWEN OD K 03/20 [facility] SYNCH AUDIO-VIDE O EST MOD 30 [id number] Diagnos is: ICD-10- CM I10 Essenti al (primar y) hyperte nsion DICK,GWEN OD K 03/20 [facility] Out[facility] Encounter [id number] 03/21 [facility] Outpatient Encounter [id number] 04/15 [facility] Procedures Combined list of: 1) Procedures from Department of [facility] Affairs facilities going back up to thelast 18 months, not all [place] non-surgical procedures are included; 2) All procedures from the Department of Defense facilities. Procedure Procedure Type Code Date Perfomer Comments [facility] e OPEN REDUCTION OF FRACTURE OF HUMERUS WITH INTERNAL FIXATION 2006 [facility] OPEN REDUCTION OF FRACTURE OF RADIUS AND ULNA WITH INTERNAL FIXATION 2006 [facility] OCCUPATIONAL THERAPY 2006 [facility] OPEN REDUCTION OF FRACTURE OF TIBIA AND FIBULA WITH INTERNAL FIXATION 2006 [facility] COMBINED PHYSICAL THERAPY WITHOUT MENTION OF THE COMPONENTS 2006 [facility] OPEN REDUCTION OF FRACTURE OF FEMUR WITH INTERNAL FIXATION 2006 [facility] HEPATITIS A VACCINE (HEPA), ADULT DOSAGE, FOR INTRAMUSCULAR USE 2005 [facility] CASE MANAGEMENT, EACH 15 MINUTES 2008 [facility] CASE MANAGEMENT, EACH 15 MINUTES 2008 [facility] INDIVIDUAL PSYCHOTHERAPY, INSIGHT ORIENTED, BEHAVIOR MODIFYING AND/OR SUPPORTIVE, IN AN OFFICE OR OUTPATIENT FACILITY, APPROXIMATELY 20 TO 30 MINUTES [id number] WITH THE PATIENT 2008 [facility] CHIROPRACTIC MANIPULATIVE TREATMENT (CMT); SPINAL, 1-2 REGIONS 2008 [facility] SCREENING TEST OF VISUAL ACUITY, QUANTITATIVE, BILATERAL 2008 [facility] CHIROPRACTIC MANIPULATIVE TREATMENT (CMT); SPINAL, 3-4 REGIONS 2008 [facility] CHIROPRACTIC MANIPULATIVE TREATMENT (CMT); SPINAL, 1-2 REGIONS 2008 [facility] CHIROPRACTIC MANIPULATIVE TREATMENT (CMT); SPINAL, 3-4 REGIONS 2008 [facility] EDUCATION &TRAINING, PATIENT SELF-MGT QUALIFIED, NONPHYSICIAN HEALTH PIPE AND TEST SUPERVISOR USING STDIZED CURRICULUM, [id number] W THE PATIENT (COULD INCL CAREGIVER/FAMILY) EA 30 MIN; INDIVIDUAL PATIENT 2008 [facility] CHIROPRACTIC MANIPULATIVE TREATMENT (CMT); SPINAL, 3-4 REGIONS 2008 [facility] SUPP &MATERIAL (EXCEPT SPECTACLE),PROVID,THE PHYS/OTH QUALIFIED HEALTH PIPE AND TEST SUPERVISOR OVER &ABOVE THOSE USUALLY INCLD W THE OFFICE VISIT/OTH SER RENDERED (LIST DRUG,TRAYS,SUPP,OR MATERIAL PROVID) 2008 [facility] CHIROPRACTIC MANIPULATIVE TREATMENT (CMT); SPINAL, 3-4 REGIONS 2008 [facility] POSTOPERATIVE FOLLOW-UP VISIT, NORMALLY INCLUDED IN THE SURGICAL PACKAGE, INDICATE THAT EVALUATION & MANAGEMENT SERVICE WAS PERFORMED DURING A POSTOPERATIVE PERIOD REASON RELATED ORIGINAL PROCEDURE 2008 [facility] SUPP &MATERIAL (EXCEPT SPECTACLE),PROVID,THE PHYS/OTH QUALIFIED HEALTH PIPE AND TEST SUPERVISOR OVER &ABOVE THOSE USUALLY INCLD W THE OFFICE VISIT/OTH SER RENDERED (LIST DRUG,TRAYS,SUPP,OR MATERIAL PROVID) 2008 [facility] UNLISTED SPECIAL SERVICE, PROCEDURE OR REPORT 2008 [facility] EDUCATIONAL SUPPLIES, SUCH BOOKS, TAPES, AND PAMPHLETS, FOR THE PATIENT'S EDUCATION AT COST TO PHYSICIAN OR OTHER QUALIFIED HEALTH PIPE AND TEST SUPERVISOR 2008 [facility] CHIROPRACTIC MANIPULATIVE TREATMENT (CMT); SPINAL, 3-4 REGIONS 2008 [facility] PHYSICAL THERAPY RE-EVALUATION 2008 [facility] CHIROPRACTIC MANIPULATIVE TREATMENT (CMT); SPINAL, 3-4 REGIONS 2007 [facility] COORDINATED CARE FEE, MAINTENANCE RATE 2007 [facility] THERAPEUTIC PROCEDURE, 1 OR MORE AREAS, EACH 15 MINUTES; THERAPEUTIC EXERCISES TO DEVELOP STRENGTH AND ENDURANCE, RANGE OF MOTION AND FLEXIBILITY 2007 [facility] CHIROPRACTIC MANIPULATIVE TREATMENT (CMT); SPINAL, 3-4 REGIONS 2007 [facility] EDUCATION &TRAINING, PATIENT SELF-MGT QUALIFIED, NONPHYSICIAN HEALTH PIPE AND TEST SUPERVISOR USING STDIZED CURRICULUM, [id number] W THE PATIENT (COULD INCL CAREGIVER/FAMILY) EA [...] MANIPULATIVE TREATMENT (CMT); SPINAL, 3-4 REGIONS 2007 [facility] EVALUATION OF SPEECH, LANGUAGE, VOICE, COMMUNICATION, AND/OR AUDITORY PROCESSING 2007 [facility] EDUCATION &TRAINING, PATIENT SELF-MGT QUALIFIED, NONPHYSICIAN HEALTH PIPE AND TEST SUPERVISOR USING STANDARDIZED CURRICULUM, [id number] W THE PATIENT (COULD INCL CAREGIVER/FAMILY) EA 30 MIN; 5-8 PATIENTS 2007 [facility] THERAPEUTIC PROCEDURE, 1 OR MORE AREAS, EACH 15 MINUTES; THERAPEUTIC EXERCISES TO DEVELOP STRENGTH AND ENDURANCE, RANGE OF MOTION AND FLEXIBILITY 2007 [facility] THERAPEUTIC PROCEDURE, 1 OR MORE AREAS, EACH 15 MINUTES; THERAPEUTIC EXERCISES TO DEVELOP STRENGTH AND ENDURANCE, RANGE OF MOTION AND FLEXIBILITY 2007 [facility] THERAPEUTIC PROCEDURE, 1 OR MORE AREAS, EACH 15 MINUTES; THERAPEUTIC EXERCISES TO DEVELOP STRENGTH AND ENDURANCE, RANGE OF MOTION AND FLEXIBILITY 2007 [facility] INDIVIDUAL PSYCHOTHERAPY, INSIGHT ORIENTED, BEHAVIOR MODIFYING AND/OR SUPPORTIVE, IN AN OFFICE OR OUTPATIENT FACILITY, APPROXIMATELY 20 TO 30 MINUTES [id number] WITH THE PATIENT 2007 [facility] CHIROPRACTIC MANIPULATIVE TREATMENT (CMT); SPINAL, 1-2 REGIONS 2007 [facility] THERAPEUTIC PROCEDURE, 1 OR MORE AREAS, EACH 15 MINUTES; THERAPEUTIC EXERCISES TO DEVELOP STRENGTH AND ENDURANCE, RANGE OF MOTION AND FLEXIBILITY 2007 [facility] MUSCLE TESTING, MANUAL (SEPARATE PROCEDURE); HAND (WITH OR WITHOUT COMPARISON WITH NORMAL SIDE) 2007 [facility] THERAPEUTIC PROCEDURE, 1 OR MORE AREAS, EACH 15 MINUTES; THERAPEUTIC EXERCISES TO DEVELOP STRENGTH AND ENDURANCE, RANGE OF MOTION AND FLEXIBILITY 2007 [facility] HEALTH&BEHAV ASSESSMENT (EG, HEALTH-FOC CLINICAL INTERVIEW, BEHAVIORAL OBSERVATIONS, PSYCHOPHYSICOLOGICAL MONITOR, HEALTH-ORIENT QUESTIONNAIRES), EA 15 MIN [id number] W THE PATIENT; INIT ASSESSMENT 2007 [facility] INFLUENZA VIRUS VACCINE, TRIVALENT, LIVE (LAIV3), FOR INTRANASAL USE 2007 [facility] THERAPEUTIC PROCEDURE, 1 OR MORE AREAS, EACH 15 MINUTES; THERAPEUTIC EXERCISES TO DEVELOP STRENGTH AND ENDURANCE, RANGE OF MOTION AND FLEXIBILITY 2007 [facility] CASE MANAGEMENT, EACH 15 MINUTES 2007 [facility] CHIROPRACTIC MANIPULATIVE TREATMENT (CMT); SPINAL, 1-2 REGIONS 2007 [facility] THERAPEUTIC PROCEDURE(S), GROUP (2 OR MORE INDIVIDUALS) 2007 [facility] CASE MANAGEMENT, EACH 15 MINUTES 2007 [facility] PSYCHIATRIC DIAGNOSTIC INTERVIEW EXAMINATION 2007 [facility] AUDIOMETRIC TESTING OF GROUPS 2007 [facility] THERAPEUTIC PROCEDURE, 1 OR MORE AREAS, EACH 15 MINUTES; THERAPEUTIC EXERCISES TO DEVELOP STRENGTH AND ENDURANCE, RANGE OF MOTION AND FLEXIBILITY 2007 [facility] THERAPEUTIC PROCEDURE, 1 OR MORE AREAS, EACH 15 MINUTES; THERAPEUTIC EXERCISES TO DEVELOP STRENGTH AND ENDURANCE, RANGE OF MOTION AND FLEXIBILITY 2007 [facility] CHIROPRACTIC MANIPULATIVE TREATMENT (CMT); SPINAL, 3-4 REGIONS 2007 [facility] THERAPEUTIC PROCEDURE, 1 OR MORE AREAS, EACH 15 MINUTES; THERAPEUTIC EXERCISES TO DEVELOP STRENGTH AND ENDURANCE, RANGE OF MOTION AND FLEXIBILITY 2007 [facility] THERAPEUTIC PROCEDURE(S), GROUP (2 OR MORE INDIVIDUALS) 2007 [facility] PHYSICAL THERAPY RE-EVALUATION 2007 [facility] CHIROPRACTIC MANIPULATIVE TREATMENT (CMT); SPINAL, 1-2 REGIONS 2007 [facility] THERAPEUTIC PROCEDURE, 1 OR MORE AREAS, EACH 15 MINUTES; THERAPEUTIC EXERCISES TO DEVELOP STRENGTH AND ENDURANCE, RANGE OF MOTION AND FLEXIBILITY 2007 [facility] CHIROPRACTIC MANIPULATIVE TREATMENT (CMT); SPINAL, 1-2 REGIONS 2007 [facility] POSTOPERATIVE FOLLOW-UP VISIT, NORMALLY INCLUDED IN THE SURGICAL PACKAGE, INDICATE THAT EVALUATION & MANAGEMENT SERVICE WAS PERFORMED DURING A POSTOPERATIVE PERIOD REASON RELATED ORIGINAL PROCEDURE 2007 [facility] UNLISTED SPECIAL SERVICE, PROCEDURE OR REPORT 2007 [facility] EDUCATION &TRAINING, PATIENT SELF-MGT QUALIFIED, NONPHYSICIAN HEALTH PIPE AND TEST SUPERVISOR USING STDIZED CURRICULUM, [id number] W THE PATIENT (COULD INCL CAREGIVER/FAMILY) EA 30 MIN; INDIVIDUAL PATIENT 2007 [facility] CHIROPRACTIC MANIPULATIVE TREATMENT (CMT); SPINAL, 1-2 REGIONS 2007 [facility] EDUCATION &TRAINING, PATIENT SELF-MGT QUALIFIED, NONPHYSICIAN HEALTH PIPE AND TEST SUPERVISOR USING STDIZED CURRICULUM, [id number] W THE PATIENT (COULD INCL CAREGIVER/FAMILY) EA 30 MIN; INDIVIDUAL PATIENT 2007 [facility] CHIROPRACTIC MANIPULATIVE TREATMENT (CMT); SPINAL, 1-2 REGIONS 2007 [facility] THERAPEUTIC PROCEDURE(S), GROUP (2 OR MORE INDIVIDUALS) 2007 [facility] THERAPEUTIC PROCEDURE(S), GROUP (2 OR MORE INDIVIDUALS) 2007 [facility] THERAPEUTIC PROCEDURE, 1 OR MORE AREAS, EACH 15 MINUTES; THERAPEUTIC EXERCISES TO DEVELOP STRENGTH AND ENDURANCE, RANGE OF MOTION AND FLEXIBILITY 2007 [facility] APPLICATION OF A MODALITY TO 1 OR MORE AREAS; HOT OR COLD PACKS 2007 [facility] THERAPEUTIC PROCEDURE, 1 OR MORE AREAS, EACH 15 MINUTES; THERAPEUTIC EXERCISES TO DEVELOP STRENGTH AND ENDURANCE, RANGE OF MOTION AND FLEXIBILITY 2007 [facility] CHIROPRACTIC MANIPULATIVE TREATMENT (CMT); SPINAL, 1-2 [...] ENDURANCE, RANGE OF MOTION AND FLEXIBILITY 2007 [facility] EDUCATION &TRAINING, PATIENT SELF-MGT QUALIFIED, NONPHYSICIAN HEALTH PIPE AND TEST SUPERVISOR USING STDIZED CURRICULUM, [id number] W THE PATIENT (COULD INCL CAREGIVER/FAMILY) EA [...] EDUCATION &TRAINING, PATIENT SELF-MGT QUALIFIED, NONPHYSICIAN HEALTH PIPE AND TEST SUPERVISOR USING STDIZED CURRICULUM, [id number] W THE PATIENT (COULD INCL CAREGIVER/FAMILY) EA [...] EDUCATION &TRAINING, PATIENT SELF-MGT QUALIFIED, NONPHYSICIAN HEALTH PIPE AND TEST SUPERVISOR USING STDIZED CURRICULUM, [id number] W THE PATIENT (COULD INCL CAREGIVER/FAMILY) EA [...] EDUCATION &TRAINING, PATIENT SELF-MGT QUALIFIED, NONPHYSICIAN HEALTH PIPE AND TEST SUPERVISOR USING STANDARDIZED CURRICULUM, [id number] W THE PATIENT (COULD INCL CAREGIVER/FAMILY) EA 30 MIN; 5-8 PATIENTS 2007 [facility] THERAPEUTIC PROCEDURE, 1 OR MORE AREAS, EACH 15 MINUTES; THERAPEUTIC EXERCISES TO DEVELOP STRENGTH AND ENDURANCE, RANGE OF MOTION AND FLEXIBILITY 2007 [facility] THERAPEUTIC PROCEDURE(S), GROUP (2 OR MORE INDIVIDUALS) 2007 [facility] OCCUPATIONAL THERAPY RE-EVALUATION 2007 [facility] EDUCATION &TRAINING, PATIENT SELF-MGT QUALIFIED, NONPHYSICIAN HEALTH PIPE AND TEST SUPERVISOR USING STANDARDIZED CURRICULUM, [id number] W THE PATIENT (COULD INCL CAREGIVER/FAMILY) EA 30 MIN; 2-4 PATIENTS 2007 [facility] THERAPEUTIC PROCEDURE, 1 OR MORE AREAS, EACH 15 MINUTES; THERAPEUTIC EXERCISES TO DEVELOP STRENGTH AND ENDURANCE, RANGE OF MOTION AND FLEXIBILITY 2007 [facility] EDUCATION &TRAINING, PATIENT SELF-MGT QUALIFIED, NONPHYSICIAN HEALTH PIPE AND TEST SUPERVISOR USING STANDARDIZED CURRICULUM, [id number] W THE PATIENT (COULD INCL CAREGIVER/FAMILY) EA 30 MIN; 5-8 PATIENTS 2007 [facility] EDUCATION &TRAINING, PATIENT SELF-MGT QUALIFIED, NONPHYSICIAN HEALTH PIPE AND TEST SUPERVISOR USING STDIZED CURRICULUM, [id number] W THE PATIENT (COULD INCL CAREGIVER/FAMILY) EA [...] MORE AREAS; HOT OR COLD PACKS 2007 [facility] POSTOPERATIVE FOLLOW-UP VISIT, NORMALLY INCLUDED IN THE SURGICAL PACKAGE, INDICATE THAT EVALUATION & MANAGEMENT SERVICE WAS PERFORMED DURING A POSTOPERATIVE PERIOD REASON RELATED ORIGINAL PROCEDURE 2007 [facility] SKIN TEST; TUBERCULOSIS, INTRADERMAL 2006 [facility] PURE TONE AUDIOMETRY (THRESHOLD); AIR ONLY [...] 12 LEADS; WITH INTERPRETATION AND REPORT 2015 [facility] DETERMINATION OF REFRACTIVE STATE 2015 [facility] PURE TONE AUDIOMETRY (THRESHOLD); AIR ONLY 2014 [facility] SCREENING TEST OF VISUAL ACUITY, QUANTITATIVE, BILATERAL 2014 [facility] SCREENING FOR DEPRESSION PERFORMED (DEM) 2014 [facility] NEUROPSYC TSTNG(EG,ZAIRA-REIT AN NEUROPSYC MAGDI,ROSA MARIA [facility] SCALES&[place] CARD SORT TST),W QUALIFIED [facility] CARE PROFSIONAL INTERP&RPT,ADMINISTERE D CLIENT CONSULTANT,/HR,TECHNIC SARITA VEGAE-2-E 2014 [facility] NEUROPSYC TSTNG(EG,ZAIRA-REIT AN NEUROPSYC MAGDI,ROSA MARIA [facility] SCALES&[place] CARD SORT TST),W QUALIFIED [facility] CARE PROFSIONAL INTERP&RPT,ADMINISTERE D CLIENT CONSULTANT,/HR,TECHNIC SARITA VEGAE-2-E 2014 [facility] PSYCHIATRIC DIAGNOSTIC EVALUATION 2014 [facility] SCREENING TEST, PURE TONE, AIR ONLY 2013 [facility] PATIENT EDUCATION, NOT OTHERWISE CLASSIFIED, NON-PHYSICIAN PROVIDER, INDIVIDUAL, PER SESSION 2013 [facility] Physical Therapy: ___ Se ion Segments, 15 Minutes Each Physical Therapy: ___ Session Segments, 15 Minutes Each [id number] 2007 ARLENE WHIPPLE [facility] Modalities Electrical Stimulation Modalities Electrical Stimulation 50014 2007 ARLENE WHIPPLE [facility] Physical Therapy Neuromuscular Re-education Physical Therapy Neuromuscular Re-education 65639 2007 [facility] Physical Therapy: ___ Se ion Segments, 15 Minutes Each Physical Therapy: ___ Session Segments, 15 Minutes Each [id number] 2007 [facility] Physical Therapy Neuromuscular Re-education Physical Therapy Neuromuscular Re-education 23746 2007 [facility] Physical Therapy: ___ Se ion Segments, 15 Minutes Each Physical Therapy: ___ Session Segments, 15 Minutes Each [id number] 2007 [facility] Physical Therapy: ___ Se ion Segments, 15 Minutes Each Physical Therapy: ___ Session Segments, 15 Minutes Each 61971 2007 JESSICA CHRISTENSEN I x 55 minutes DoD Physical Therapy: ___ Se ion Segments, 15 Minutes Each Physical Therapy: ___ Session Segments, 15 Minutes Each [id number] 2007 JESSICA CHRISTENSEN I x 50 minutes [facility] Physical Therapy: ___ Se ion Segments, 15 Minutes Each Physical Therapy: ___ Session Segments, 15 Minutes Each 68762 2007 HERMINIO BONILLA [facility] Physical Therapy Service Re-Evaluation Physical Therapy Service Re-Evaluation 79365 2007 HERMNIIO BONILLA ANNE [facility] Physical Therapy: ___ Se ion Segments, 15 Minutes Each Physical Therapy: ___ Session Segments, 15 Minutes Each [id number] 2007 JESSICA CHRISTENSEN I x 45 minutes [facility] Modalities Cryotherapy Cold Packs Modalities Cryotherapy Cold Packs 92251 2007 [facility] Physical Therapy: ___ Se ion Segments, 15 Minutes Each Physical Therapy: ___ Session Segments, 15 Minutes Each 83014 2007 [facility] Physical Therapy: ___ Se ion Segments, 15 Minutes Each Physical Therapy: ___ Session Segments, 15 Minutes Each 63942 2007 JESSICA CHRISTENSEN I x 45 minutes [facility] Physical Therapy: ___ Se ion Segments, 15 Minutes Each Physical Therapy: ___ Session Segments, 15 Minutes Each [id number] 2007 HERMINIO BONILLA [facility] Physical Therapy: ___ Se ion Segments, 15 Minutes Each Physical Therapy: ___ Session Segments, 15 Minutes Each 61278 2007 HERMINIO BONILLA [facility] Modalities Cryotherapy Cold Packs Modalities Cryotherapy Cold Packs 89256 2007 JESSICA CHRISTENSEN I x 5 minutes [facility] Physical Therapy: ___ Se ion Segments, 15 Minutes Each Physical Therapy: ___ Session Segments, 15 Minutes Each 96652 2007 JESSICA CHRISTENSEN I x 30 minutes [facility] Physical Therapy: ___ Se ion Segments, 15 Minutes Each Physical Therapy: ___ Session Segments, 15 Minutes Each 72959 2007 HERMINIO BONILLA A isted Exercises For ROM Assisted [place]ises [place] ROM 72328 2007 [facility] Modalities Heat Hot Packs Modalities Heat Hot Packs 83346 [facility] Physical Therapy: ___ Se ion Segments, 15 Minutes Each Physical Therapy: ___ Session Segments, 15 Minutes Each 59740 2007 HERMINIO BONILLA Physical Therapy: ___ Se ion Segments, 15 Minutes Each Physical Therapy: ___ Session Segments, 15 Minutes Each 39809 2007 HERMINIO BONILLA A isted Exercises For ROM Assisted Exercises For ROM 08741 2007 STEPHEN BRYANT [facility] Modalities Heat Hot Packs Modalities Heat Hot Packs 48424 2007 STEPHEN BRYANT [facility] Physical Therapy: ___ Se ion Segments, 15 Minutes Each Physical Therapy: ___ Session Segments, 15 Minutes Each 82764 2007 HERMINIO BONILLA isted Exercises For ROM Assisted [place] 36843 2007 MALATHI CARNEY Modalities Heat Hot Packs Modalities Heat Hot Packs 35970 2007 MALATHI CARNEY [facility] Physical Therapy: ___ Se ion Segments, 15 Minutes Each Physical Therapy: ___ Session Segments, 15 Minutes Each 98212 2007 HERMINIO BONILLA Physical Therapy Gait Training Physical Therapy Gait Training 36965 2007 HERMINIO BONILLA [facility] Physical Therapy: ___ Se ion Segments, 15 Minutes Each Physical Therapy: ___ Session Segments, 15 Minutes Each 36341 2007 HERMINIO BONILLA Physical Therapy Service Re-Evaluation Physical Therapy Service Re-Evaluation 56231 2007 HERMINIO BONILLA A isted Exercises For ROM Assisted [place] 83254 2007 MALATHI CARNEY Modalities Heat Hot Packs Modalities Heat Hot Packs 20878 2007 MALATHI CARNEY [facility] A isted Exercises [place] 22804 2007 STEPHEN BRYANT [facility] Modalities Heat Hot Packs Modalities Heat Hot Packs 37265 2007 STEPHEN BRYANT [facility] Occupational Therapy Evaluation Occupational Therapy Evaluation 95698 2007 JAYCOB BUCKNER [facility] Physician Supervised Services Provision Of Educational Supplies Physician Supervised Services Provision Of Educational Supplies 18521 2007 HERMINIO BONILLA [facility] Physical Therapy: ___ Se ion Segments, 15 Minutes Each Physical Therapy: ___ Session Segments, 15 Minutes Each 23299 2007 HERMINIO BONILLA [facility] Physical Therapy Service Evaluation Physical Therapy Service Evaluation 30776 2007 HERMINIO BONILLA [facility] Audiometry Group Testing Audiometry Group Testing 63783 2006 DEBBIE CHACKO [facility] Threshold Audiogram (Pure Tone) Threshold Audiogram (Pure Tone) 07124 2006 DEBBIE CHACKO [facility] Physical Therapy Service Re-Evaluation Physical Therapy Service Re-Evaluation 69256 2007 HERMINIO BONILLA [facility] Chiropractic Manip Treatmt (CMT) Spinal One To Two Regions Chiropractic Manip Treatmt (CMT) Spinal One To Two Regions 16603 2007 SHIRLEY REYNOSO [facility] Physical Therapy: ___ Se ion Segments, 15 Minutes Each Physical Therapy: ___ Session Segments, 15 Minutes Each 03730 2007 ANASTACIA PARHAM [facility] Physical Medicine - Group Physical Therapy Se ion Physical Medicine - Group Physical Therapy Session 71172 2007 ANASTACIA PARHAM Physical Medicine - Group Physical Therapy Se ion Physical Medicine - Group Physical Therapy Session 29345 2007 ANASTACIA PARHAM [facility] Physical Therapy: ___ Se ion Segments, 15 Minutes Each Physical Therapy: ___ Session Segments, 15 Minutes Each 24656 2007 ANASTACIA PARHAM 1:1 x 30 min [facility] Physical Medicine - Group Physical Therapy Se ion Physical Medicine - Group Physical Therapy Session 86168 2007 TATY SANTOS A isted Exercises For ROM Assisted Exercises For ROM 39703 2007 MIKEY RICE [facility] Modalities Heat Hot Packs Modalities Heat Hot Packs 48815 2007 MIKEY RICE [facility] Occup Therapy & Vocation Rehab Work Hardening / Conditioning Occup Therapy & Vocation Rehab Work Hardening / Conditioning 29806 2007 MIKEY RICE [facility] Physical Medicine - Group Physical Therapy Se ion Physical Medicine - Group Physical Therapy Session 53011 2007 TATY SANTOS [facility] Chiropractic Manip Treatmt (CMT) Spinal One To Two Regions Chiropractic Manip Treatmt (CMT) Spinal One To Two Regions 23482 2007 SHIRLEY REYNOSO [facility] A isted Exercises For ROM Assisted Exercises For ROM 84595 2007 MIRTA LIU [facility] Modalities Heat Hot Packs Modalities Heat Hot Packs 87006 2007 MIRTA LIU [facility] Occup Therapy & Vocation Rehab Work Hardening / Conditioning Occup Therapy & Vocation Rehab Work Hardening / Conditioning 12731 2007 [facility] LIU [facility] Physical Medicine - Group Physical Therapy Se ion Physical Medicine - Group Physical Therapy Session 60980 2007 ANASTACIA PARHAM [facility] Physical Therapy: ___ Se ion Segments, 15 Minutes Each Physical Therapy: ___ Session Segments, 15 Minutes Each 49210 2007 ANASTACIA PARHAM 1:1 x30 min [facility] Modalities Heat Hot Packs Modalities Heat Hot Packs 12384 2007 MALATHI CARNEY Occup Therapy & Vocation Rehab Work Hardening / Conditioning Occup Therapy & Vocation Rehab Work Hardening / Conditioning 62569 2007 MALATHI CARNEY Physical Medicine - Group Physical Therapy Se ion Physical Medicine - Group Physical Therapy Session 14949 2007 TATY SANTOS [facility] Patient Counseling Medical Management Individual Patient Patient Counseling Medical Management Individual Patient [id number] 2007 HERMINIO BONILLA [facility] Physical Therapy Service Re-Evaluation Physical Therapy Service Re-Evaluation 87246 2007 HERMINIO BONILLA [facility] Occup Therapy & Vocation Rehab Work Hardening / Conditioning Occup Therapy & Vocation Rehab Work Hardening / Conditioning 09871 2007 MIKEY RICE [facility] Modalities Heat Hot Packs Modalities Heat Hot Packs 02866 2007 MIKEY RICE [facility] Physical Medicine - Group Physical Therapy Se ion Physical Medicine - Group Physical Therapy Session 88982 2007 WARRENJAREKCONCEPCIONARLENE [facility] Occup Therapy & Vocation Rehab Work Hardening / Conditioning Occup Therapy & Vocation Rehab Work Hardening / Conditioning 20203 2007 MAYRA PHELAN A x 20 mins DoD A isted Exercises For ROM Assisted Exercises For ROM 18556 2007 MAYRA PHELAN A x 15 mins [facility] Physical Medicine - Group Physical Therapy Se ion Physical Medicine - Group Physical Therapy Session 09476 2007 ANASTACIA PARHAM Physical Therapy: ___ Se ion Segments, 15 Minutes Each Physical Therapy: ___ Session Segments, 15 Minutes Each 59949 2007 ANASTACIA PARHAM [facility] A isted Exercises For ROM Assisted Exercises For ROM 38408 2007 MIKEY RICE [facility] Physical Therapy Ma age Physical Therapy Massage 68383 2007 MIKEY RICE Occup Therapy & Vocation Rehab Work Hardening / Conditioning Occup Therapy & Vocation Rehab Work Hardening / Conditioning 30476 2007 MIKEY RICE Modalities Heat Hot Packs Modalities Heat Hot Packs 27002 2007 MIKEY RICE [facility] A isted Exercises For ROM Assisted Exercises For ROM 62446 2007 MIKEY RICE [facility] Physical Therapy Ma age Physical Therapy Massage 41809 2007 MIKEY RICE Occup Therapy & Vocation Rehab Work Hardening / Conditioning Occup Therapy & Vocation Rehab Work Hardening / Conditioning 29365 2007 MIKEY RICE Modalities Heat Hot Packs Modalities Heat Hot Packs 51593 2007 MIKEY RICE Physical Medicine - Group Physical Therapy Se ion Physical Medicine - Group Physical Therapy Session 92873 2007 ANASTACIA PARHAM Physical Therapy: ___ Se ion Segments, 15 Minutes Each Physical Therapy: ___ Session Segments, 15 Minutes Each 07742 2007 ANASTACIA PARHAM Occup Therapy & Vocation Rehab Work Hardening / Conditioning Occup Therapy & Vocation Rehab Work Hardening / Conditioning 50723 2007 MIKEY RICE A isted Exercises For ROM Assisted Exercises For ROM 86152 2007 MIKEY RICE Physical Therapy Ma age Physical Therapy Massage 13542 2007 MIKEY RICE Modalities Heat Hot Packs Modalities Heat Hot Packs 59850 2007 MIKEY RICE A isted Exercises For ROM Assisted Exercises For ROM 11897 2007 MIKEY RICE Occup Therapy & Vocation Rehab Work Hardening / Conditioning Occup Therapy & Vocation Rehab Work Hardening / Conditioning 60187 2007 MIKEY RICE Physical Therapy Ma age Physical Therapy Massage 47679 2007 MIKEY RICE Modalities Heat Hot Packs Modalities Heat Hot Packs 83069 2007 MIKEY RICE Physical Medicine - Group Physical Therapy Se ion Physical Medicine - Group Physical Therapy Session 67783 2007 ANASTACIA PARHAM [facility] Physical Therapy: ___ Se ion Segments, 15 Minutes Each Physical Therapy: ___ Session Segments, 15 Minutes Each 06287 2007 ANASTACIA PARHAM [facility] Mobilization Soft Ti ue Mobilization Soft Tissue 74880 2007 LIU KIRBY Occup Therapy & Vocation Rehab Work Hardening / Conditioning Occup Therapy & Vocation Rehab Work Hardening / Conditioning 20121 2007 LUI KIRBY [facility] Physical Medicine - Group Physical Therapy Se ion Physical Medicine - Group Physical Therapy Session 65053 2007 ANASTACIA PARHAM [facility] Physical Therapy: ___ Se ion Segments, 15 Minutes Each Physical Therapy: ___ Session Segments, 15 Minutes Each 18108 2007 ANASTACIA PARHAM Modalities Heat Hot Packs Modalities Heat Hot Packs 21516 2007 MAYRA PHELAN x 15 mins DoD Occup Therapy & Vocation Rehab Work Hardening / Conditioning Occup Therapy & Vocation Rehab Work Hardening / Conditioning 99195 2007 MAYRA PHELAN x 40 mins DoD Mobilization Soft Ti ue Mobilization Soft Tissue 20627 2007 MAYRA PHELAN [employer] Occup Therapy & Vocation Rehab Work Hardening / Conditioning Occup Therapy & Vocation Rehab Work Hardening / Conditioning 13356 2007 MAYRA PHELAN 40 mins [facility] Physical Medicine - Group Physical Therapy Se ion Physical Medicine - Group Physical Therapy Session 66626 2007 ANASTACIA PARHAM [facility] Physical Therapy: ___ Se ion Segments, 15 Minutes Each Physical Therapy: ___ Session Segments, 15 Minutes Each 81554 2007 ANASTACIA PARHAM [facility] Occup Therapy & Vocation Rehab Work Hardening / Conditioning Occup Therapy & Vocation Rehab Work Hardening / Conditioning 22721 2007 STEPHEN BRYANT [facility] Occup Therapy & Vocation Rehab Work Hardening / Conditioning Occup Therapy & Vocation Rehab Work Hardening / Conditioning 96264 2007 MAYRA PHELAN x 30 mins [facility] Mobilization Soft Ti ue Mobilization Soft Tissue 11581 2007 MAYRA PHELAN x 15 mins DoD Occup Therapy & Vocation Rehab Work Hardening / Conditioning Occup Therapy & Vocation Rehab Work Hardening / Conditioning 27894 2007 LIU KIRBY [facility] Modalities Heat Hot Packs Modalities Heat Hot Packs 22508 2007 LIU KIRBY [facility] Physical Therapy: ___ Se ion Segments, 15 Minutes Each Physical Therapy: ___ Session Segments, 15 Minutes Each 52269 2007 HERMINIO BONILLA [facility] Patient Counseling Medical Management Individual Patient Patient Counseling Medical Management Individual Patient [id number] 2007 HERMINIO BONILLA [facility] Physical Therapy Service Re-Evaluation Physical Therapy Service Re-Evaluation 91498 2007 HERMINIO BONILLA [facility] Occup Therapy & Vocation Rehab Work Hardening / Conditioning Occup Therapy & Vocation Rehab Work Hardening / Conditioning 53417 2007 STEPHEN BRYANT [facility] Modalities Heat Hot Packs Modalities Heat Hot Packs 40099 2007 STEPHEN BRYANT [facility] Mobilization Soft Ti ue Mobilization Soft Tissue 30978 2007 MALATHI CARNEY [facility] Occup Therapy & Vocation Rehab Work Hardening / Conditioning Occup Therapy & Vocation Rehab Work Hardening / Conditioning 82201 2007 MALATHI CARNEY Modalities Heat Hot Packs Modalities Heat Hot Packs 13592 2007 MALATHI CARNEY [facility] Occup Therapy & Vocation Rehab Work Hardening / Conditioning Occup Therapy & Vocation Rehab Work Hardening / Conditioning 56856 2007 MAYRA PHELAN x 30 mins DoD Mobilization Soft Ti ue Mobilization Soft Tissue 30552 2007 MAYRA PHELAN [employer] Modalities Heat Hot Packs Modalities Heat Hot Packs 47824 2007 MAYRA PHELAN [facility] Patient Counseling Medical Management Five To Eight Patients Patient Counseling Medical Management Five To Eight Patients [id number] 2007 MISTI BERRY [facility] Physical Medicine - Group Physical Therapy Se ion Physical Medicine - Group Physical Therapy Session 76169 2007 MISTI BERRY [facility] Occup Therapy & Vocation Rehab Work Hardening / Conditioning Occup Therapy & Vocation Rehab Work Hardening / Conditioning 05997 2007 MAYRA PHELAN x 30 mins - theraputty for strengthening DoD Mobilization Soft Ti ue Mobilization Soft Tissue 86649 2007 MAYRA PHELAN x 15 mins [facility] Modalities Heat Hot Packs Modalities Heat Hot Packs 26893 2007 MAYRA PHELAN x 15 mins [facility] Physical Medicine - Group Physical Therapy Se ion Physical Medicine - Group Physical Therapy Session 51557 2007 MISTI BERRY [facility] Patient Counseling Medical Management Five To Eight Patients Patient Counseling Medical Management Five To Eight Patients [id number] 2007 MISTI BERRY [facility] Physical Medicine - Group Physical Therapy Se ion Physical Medicine - Group Physical Therapy Session 03183 2007 AKBAR DIXON [facility] Physical Medicine - Group Physical Therapy Se ion Physical Medicine - Group Physical Therapy Session 80182 2007 AKBAR DIXON [facility] Physical Therapy: ___ Se ion Segments, 15 Minutes Each Physical Therapy: ___ Session Segments, 15 Minutes Each 22711 2007 AKBAR DIXON [facility] Physical Medicine - Group Physical Therapy Se ion Physical Medicine - Group Physical Therapy Session 26144 2007 HERMINIO BONILLA [facility] Patient Counseling Medical Management Five To Eight Patients Patient Counseling Medical Management Five To Eight Patients [id number] 2007 HERMINIO BONILLA [facility] Patient Counseling Medical Management Individual Patient Patient Counseling Medical Management Individual Patient [id number] 2007 HERMINIO BONILLA [facility] Physical Therapy Service Re-Evaluation Physical Therapy Service Re-Evaluation 42741 2007 HERMINIO BONILLA [facility] Biofeedback Training By Any Modality Biofeedback Training By Any Modality 02000 2007 ARLENE WHIPPLE [facility] Physical Therapy: ___ Se ion Segments, 15 Minutes Each Physical Therapy: ___ Session Segments, 15 Minutes Each 65701 2007 ARLENE WHIPPLE [facility] Modalities Cryotherapy Cold Packs Modalities Cryotherapy Cold Packs 49910 2007 [facility] Biofeedback Training By Any Modality Biofeedback Training By Any Modality 67384 2007 ARLENE WHIPPLE [facility] Physical Therapy Neuromuscular Re-education Physical Therapy Neuromuscular Re-education 61571 2007 ARLENE WHIPPLE [facility] Physical Therapy: ___ Se ion Segments, 15 Minutes Each Physical Therapy: ___ Session Segments, 15 Minutes Each 72262 2007 ARLENE WHIPPLE [facility] Modalities Electrical Stimulation Modalities Electrical Stimulation 69737 2007 ARLENE WHIPPLE E-Stim c Biofeedback x 10 mins. [facility] Physical Therapy Neuromuscular Re-education Physical Therapy Neuromuscular Re-education 39377 2007 ARLENE WHIPPLE Biofeedback c E-Stim x 10 mins. [facility] Electrocardiogram Electrocardiogram 49285 03/14 KAYLYNKERRIE HERNANDEZ [facility] Electrocardiogram Electrocardiogram 57377 02/24 KERRIE PATIÑO [facility] Audiogram (Screening) Audiogram (Screening) 28270 2016 SCOUT MARINELLI [facility] ECG 12-Lead With Interpretation And Report ECG 12-Lead With Interpretation And Report 66497 2015 KAYLYNKERRIE HERNANDEZ [facility] Audiogram (Screening) Audiogram (Screening) 18248 2015 DORA CRABTREE [facility] Extensive Color Vision Testing Extensive Color Vision Testing 07608 2015 BONG HARGROVE [facility] Ophthalmological New Patient Start Comprehensive Care Ophthalmological New Patient Start Comprehensive Care 80767 2015 BONG HARGROVE [facility] Determination Of Refractive State Determination Of Refractive State [id number] 2015 BONG HARGROVE [facility] Screening Test Of Visual Acuity, Quantitative, Bilateral Screening Test Of Visual Acuity, Quantitative, Bilateral 42075 2014 STACEY GOLDSMITH [facility] Threshold Audiogram (Pure Tone) Threshold Audiogram (Pure Tone) 36736 2014 TRISHA SERNA [facility] Preventive Medicine Screening For Depre ion Preventive Medicine Screening For Depression 3725F 2014 ROSALBA TOLLIVER [facility] Psychometric Neuropsych Testing Battery Admin By Physician Psychometric Neuropsych Testing Battery Admin By Physician 24249 2014 NU SEWELL [facility] Psychometric Neuropsych Testing Battery Admin By Terminal Gauger Psychometric Neuropsych Testing Battery Admin By Terminal Gauger 16160 2014 NU SEWELL [facility] Psychiatric Diagnostic Evaluation Psychiatric Diagnostic Evaluation 22096 2014 NU SEWELL [facility] Audiogram (Screening) Audiogram (Screening) 65748 2013 DORA CRABTREE [facility] Patient education, not otherwise cla ified, non-physician provider, individual, per se ion 2013 KERRIE PATIÑO [facility] Visual Function Screening Visual Function Screening 31108 2013 KERRIE PATIÑO [facility] Case Management, each 15 minutes 2008 CASSANDRA MICHELE [facility] Psychiatric Diagnostic Evaluation Review of Records and Reports Psychiatric Diagnostic Evaluation Review of Records and Reports 88194 2008 MAYRA TOLEDO [facility] Clinical Social Work Individual Outpatient Counseling 30 Minutes Clinical Social Work Individual Outpatient Counseling 30 Minutes 76641 2008 COLT MARINELLI [facility] Modalities Traction Manual (Each Region 15 Minutes) Modalities Traction Manual (Each Region 15 Minutes) 66507 2008 SHIRLEY REYNOSO < 2 MIN DoD Mobilization Soft Ti ue Mobilization Soft Tissue 54766 2008 REYNOSO SHIRLEY < 2 MIN DoD Chiropractic Manip Treatmt (CMT) Spinal One To Two Regions Chiropractic Manip Treatmt (CMT) Spinal One To Two Regions 89582 2008 SHIRLEY REYNOSO DoD Mobilization Soft Ti ue Mobilization Soft Tissue 98928 2008 REYNOSO SHIRLEY < 2 min DoD Modalities Traction Manual (Each Region 15 Minutes) Modalities Traction Manual (Each Region 15 Minutes) 52289 2008 SHIRLEY REYNOSO < 2 min DoD Chiropractic Manip Treatmt (CMT) Spinal One To Two Regions Chiropractic Manip Treatmt (CMT) Spinal One To Two Regions 07951 2008 SHIRLEY REYNOSO Mobilization Soft Ti ue Mobilization Soft Tissue 18589 2008 SHIRLEY REYNOSO <5 min Vanessa Modalities Traction Manual (Each Region 15 Minutes) Modalities Traction Manual (Each Region 15 Minutes) 85695 2008 SHIRLEY REYNOSO <5 min Vanessa Chiropractic Manip Treatmt (CMT) Spinal One To Two Regions Chiropractic Manip Treatmt (CMT) Spinal One To Two Regions 94119 2008 SHIRLEY REYNOSO Chiropractic Manip Treatmt (CMT) Spinal One To Two Regions Chiropractic Manip Treatmt (CMT) Spinal One To Two Regions 19065 2008 SHIRLEY REYNOSO Occupational Therapy Evaluation Occupational Therapy Evaluation 49424 2008 VANESA PATTON [facility] Physical Therapy Service Re-Evaluation Physical Therapy Service Re-Evaluation 83151 2008 ENMANUEL BARRIENTOS Chiropractic Manip Treatmt (CMT) Spinal One To Two Regions Chiropractic Manip Treatmt (CMT) Spinal One To Two Regions 97370 2008 SHIRLEY REYNOSO [facility] Chiropractic Manip Treatmt (CMT) Spinal One To Two Regions Chiropractic Manip Treatmt (CMT) Spinal One To Two Regions 64235 2008 SHIRLEY REYNOSO [facility] Physical Therapy Service Evaluation Physical Therapy Service Evaluation 57669 2008 ENMANUEL BARRIENTOS [facility] Patient Counseling Medical Management Individual Patient Patient Counseling Medical Management Individual Patient [id number] 2008 GASTON VELASCO [facility] Physician Supervised Services Provision Of Special Supplies Physician Supervised Services Provision Of Special Supplies 06137 2008 GASTON VELASCO [facility] Range Of Motion Evaluation Of Extremity Range Of Motion Evaluation Of Extremity 52278 2008 SHIRLEY REYNOSO Chiropractic Manip Treatmt (CMT) Spinal One To Two Regions Chiropractic Manip Treatmt (CMT) Spinal One To Two Regions 33355 2008 SHIRLEY REYNOSO [facility] Physical Therapy Service Re-Evaluation Physical Therapy Service Re-Evaluation 65686 2008 GREGORIO ELIZALDE [facility] Chiropractic Manip Treatmt (CMT) Spinal One To Two Regions Chiropractic Manip Treatmt (CMT) Spinal One To Two Regions 27773 2007 SHIRLEY REYNOSO [facility] Range Of Motion Evaluation Of Extremity Range Of Motion Evaluation Of Extremity 26557 2007 SHIRLEY REYNOSO [facility] Physical Therapy: ___ Se ion Segments, 15 Minutes Each Physical Therapy: ___ Session Segments, 15 Minutes Each 11710 2007 HERMINIO BONILLA [facility] Patient Counseling Medical Management Individual Patient Patient Counseling Medical Management Individual Patient [id number] 2007 HERMINIO BONILLA [facility] Physical Therapy Service Re-Evaluation Physical Therapy Service Re-Evaluation 52934 2007 HERMINIO BONILLA [facility] Modalities Heat Hot Packs Modalities Heat Hot Packs 06182 2007 SHIRLEY REYNOSO 8 min [facility] Modalities Electrical Stimulation Modalities Electrical Stimulation 87187 2007 SHIRLEY REYNOSO 8 min [facility] Chiropractic Manip Treatmt (CMT) Spinal One To Two Regions Chiropractic Manip Treatmt (CMT) Spinal One To Two Regions 80199 2007 SHIRLEY REYNOSO [facility] Range Of Motion Evaluation Of Extremity Range Of Motion Evaluation Of Extremity 76956 2007 SHIRLEY REYNOSO [facility] Patient Counseling Medical Management Individual Patient Patient Counseling Medical Management Individual Patient [id number] 2007 HERMINIO BONILLA [facility] Physical Therapy Service Re-Evaluation Physical Therapy Service Re-Evaluation 70809 2007 HERMINIO BONILLA [facility] Physical Medicine - Group Physical Therapy Se ion Physical Medicine - Group Physical Therapy Session 36725 2007 FLAVIO SLADE [facility] Physical Medicine - Group Physical Therapy Se ion Physical Medicine - Group Physical Therapy Session 18020 2007 JERRI WINKLER [facility] Range Of Motion Evaluation Of Extremity Range Of Motion Evaluation Of Extremity 68488 2007 SHIRLEY REYNOSO [facility] Chiropractic Manip Treatmt (CMT) Spinal One To Two Regions Chiropractic Manip Treatmt (CMT) Spinal One To Two Regions 54207 2007 SHIRLEY REYNOSO [facility] Evaluation of Speech / Hearing Problem 2007 RYNE MACHUCA [facility] Patient Counseling Medical Management Five To Eight Patients Patient Counseling Medical Management Five To Eight Patients [id number] 2007 NORAH HENDRIX [facility] Physical Medicine - Group Physical Therapy Se ion Physical Medicine - Group Physical Therapy Session 07413 2007 NORAH HENDRIX [facility] Physical Medicine - Group Physical Therapy Se ion Physical Medicine - Group Physical Therapy Session 84129 2007 FLAVIO SLADE [facility] Physical Medicine - Group Physical Therapy Se ion Physical Medicine - Group Physical Therapy Session 81601 2007 FLAVIO SLADE [facility] Physical Medicine - Group Physical Therapy Se ion Physical Medicine - Group Physical Therapy Session 31788 2007 JERRI WINKLER [facility] Clinical Social Work Individual Outpatient Counseling 30 Minutes Clinical Social Work Individual Outpatient Counseling 30 Minutes 90112 2007 MAGGIE RICKETTS [facility] Range Of Motion Evaluation Of Extremity Range Of Motion Evaluation Of Extremity 18373 2007 SHIRLEY REYNOSO [facility] Chiropractic Manip Treatmt (CMT) Spinal One To Two Regions Chiropractic Manip Treatmt (CMT) Spinal One To Two Regions 94451 2007 SHIRLEY REYNOSO [facility] Physical Medicine - Group Physical Therapy Se ion Physical Medicine - Group Physical Therapy Session 98071 2007 FLAVIO SLADE [facility] Motor - Performing Examination - Hand(s) Only Motor - Performing Examination - Hand(s) Only 01772 2007 STEPHEN BRYANT [facility] Psychometric Neurobehavioral Status Exam 2007 JOHNNY AZUL [facility] Physical Medicine - Group Physical Therapy Se ion Physical Medicine - Group Physical Therapy Session 38658 2007 FLAVIO SLADE [facility] Clinical Social Work Individual Outpatient Counseling 30 Minutes Clinical Social Work Individual Outpatient Counseling 30 Minutes 36131 2007 BOOKER ANDRES [facility] Behavioral health prevention education service (delivery of services with target population to affect knowledge, attitude and/or behavior) 2007 BOOKER ANDRES [facility] [facility] Influenza Virus Vaccine Intranasal Live Attenuated 2007 JOHNNY COOPER 0.1 each nare [facility] Immunization Admin By Intranasal / Oral Route One Vaccine Immunization Admin By Intranasal / Oral Route One Vaccine [id number] 2007 JOHNNY COOPER [facility] Physical Medicine - Group Physical Therapy Se ion Physical Medicine - Group Physical Therapy Session [id number] 2007 FLAVIO SLADE [facility] Case Management, each 15 minutes 2007 QUINCY BRODY [facility] Range Of Motion Evaluation Of Extremity Range Of Motion Evaluation Of Extremity [id number] 2007 SHIRLEY REYNOSO [facility] Chiropractic Manip Treatmt (CMT) Spinal One To Two Regions Chiropractic Manip Treatmt (CMT) Spinal One To Two Regions [id number] 2007 SHIRLEY REYNOSO [facility] Physical Medicine - Group Physical Therapy Se ion Physical Medicine - Group Physical Therapy Session [id number] 2007 JERRI WINKLER [facility] Case Management, each 15 minutes 2007 ITA KOLB [facility] Physical Medicine - Group Physical Therapy Se ion Physical Medicine - Group Physical Therapy Session [id number] 2007 TATY SANTOS [facility] Physical Medicine - Group Physical Therapy Se ion Physical Medicine - Group Physical Therapy Session [id number] 2007 TATY SANTOS [facility] Chiropractic Manip Treatmt (CMT) Spinal One To Two Regions Chiropractic Manip Treatmt (CMT) Spinal One To Two Regions [id number] 2007 SHIRLEY REYNOSO [facility] Physical Medicine - Group Physical Therapy Se ion Physical Medicine - Group Physical Therapy Session [id number] 2007 TATY SANTOS [facility] Physical Medicine - Group Physical Therapy Se ion Physical Medicine - Group Physical Therapy Session [id number] 2007 TATY SANTOS [facility] Physical Therapy: ___ Se ion Segments, 15 Minutes Each Physical Therapy: ___ Session Segments, 15 Minutes Each [id number] 2007 TATY SANTOS face to face therex x 10mins [facility] Physical Therapy Service Re-Evaluation Physical Therapy Service Re-Evaluation [id number] 2007 HERMINIO BONILLA [facility] Modalities Electrical Stimulation Modalities Electrical Stimulation 16145 2007 SHIRLEY REYNOSO [facility] Modalities Heat Hot Packs Modalities Heat Hot Packs 90771 2007 SHIRLEY REYNOSO [facility] Range Of Motion Evaluation Of Extremity Range Of Motion Evaluation Of Extremity 05839 2007 SHIRLEY REYNOSO [facility] Chiropractic Manip Treatmt (CMT) Spinal One To Two Regions Chiropractic Manip Treatmt (CMT) Spinal One To Two Regions 13057 2007 SHIRLEY REYNOSO [facility] Physical Therapy: ___ Se ion Segments, 15 Minutes Each Physical Therapy: ___ Session Segments, 15 Minutes Each [id number] 2007 HERMINIO BONILLA [facility] Physical Therapy Service Re-Evaluation Physical Therapy Service Re-Evaluation [id number] 2007 HERMINIO BONILLA [facility] Chiropractic Manip Treatmt (CMT) Spinal One To Two Regions Chiropractic Manip Treatmt (CMT) Spinal One To Two Regions 40221 2007 SHIRLEY REYNOSO [facility] Patient Counseling Medical Management Individual Patient Patient Counseling Medical Management Individual Patient [id number] 2007 JERRI WINKLER Physician Supervised Services Provision Of Educational Supplies Physician Supervised Services Provision Of Educational Supplies [id number] 2007 JERRI WINKLER Patient Counseling Medical Management Individual Patient Patient Counseling Medical Management Individual Patient [id number] 2007 TONIA ISIDRO Discussed with patient post op wound care, pain management, importance of elevations and signs of infection. Important contact numbers were given to the patient in the event of complications. Patient verbalized understanding of these instructions. 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 Social History Type Response Date Comment Sourc e Tobacco smoking status NHIS VA-TOBACCO NEVER USED 05/15/2023 [facility] History of tobacco use VA-TOBACCO NEVER USED 05/13/2022 [facility] History of tobacco use VA-TOBACCO NEVER USED 01/13/2021 [facility] History of tobacco use VA-TOBACCO NEVER USED 09/30/2019 [facility] History of tobacco use VA-TOBACCO NEVER USED 08/22/2018 [facility] History of tobacco use LIFETIME NON-USER OF TOBACCO 06/06/2013 [facility] History of tobacco use LIFETIME NON-USER OF TOBACCO 03/12/2009 [facility] This section is an empty social history section. DoD Plan of Care List of future care activities from Department of Veterans Affairs facilities. Additional future care activities may be listed in the Assessment and Plan section. Date/Time Care Activity Care Activity Detail Facili ty 09/18/2024 AMBULATORY - NONE AM[facility]ULAT[facility] - NONE [facility]
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
[2024-04-16] MEDS: KETOROLAC 10 MG TABLET PO (22:10)
== END 2024-04-16 22:16 | disposition home or self-care (01) ==
LOC: ANHED 21:55
PROVIDERS: Emergency Provider Student in an Organized Health Care Education/Training Program
DX: M79.651 Pain in right thigh (principal)
CPT/HCPCS: 93971; 99284; A9270